=== PATIENT | female | born 1960 | race Caucasian/White ===

== ENCOUNTER → 2021-01-07 08:06 | Outpatient (BNVA) | payer BC, SELFPAY | PROVIDERS: Visit Provider Internal Medicine | DX: M54.9 Dorsalgia, unspecified (principal); M70.61 Trochanteric bursitis, right hip; M70.62 Trochanteric bursitis, left hip; M47.816 Spondylosis without myelopathy or radiculopathy, lumbar region; M46.1 Sacroiliitis, not elsewhere classified | CPT/HCPCS: 20610; 20611; J1040 ==

== ENCOUNTER 2021-03-09 06:45 | Outpatient (REF) | payer BC, SELFPAY ==
--- NOTE | ~2021-03-09 | FL_ITS ---
EXAMINATION: XR FLUOROSCOPY WITH IMAGES CLINICAL INFORMATION: Spondylosis without myelopathy or radiculopathy COMPARISON: None. TECHNIQUE: Fluoroscopy performed by Roberta Eli. Fluoroscopy time: 0.6 minutes DAP: 1.03 Gycm2 Images: 6 FINDINGS: There are 6 images revealing bilateral needles positioned posterior to L2-L3, L3-L4, L4-L5 facet joints. No lytic or sclerotic process seen. The paravertebral soft tissues are normal. FL/FL guidance in treatment room IMPRESSION: Fluoroscopy guidance was provided to Dr. Eli for pain management.
== END 2021-03-09 06:46 | disposition home or self-care (01) ==
LOC: HO.RADIR 06:45
PROVIDERS: Visit Provider Internal Medicine
DX: M45.9 Ankylosing spondylitis of unspecified sites in spine (principal); M47.816 Spondylosis without myelopathy or radiculopathy, lumbar region; M46.1 Sacroiliitis, not elsewhere classified; M70.62 Trochanteric bursitis, left hip; M70.61 Trochanteric bursitis, right hip
CPT/HCPCS: 64493; 64494; 64495; J1040; Q9967

== ENCOUNTER 2021-04-20 06:05 | Outpatient (REF) | payer BC, SELFPAY ==
--- NOTE | ~2021-04-20 | FL_ITS ---
EXAMINATION: XR FLUOROSCOPY WITH IMAGES CLINICAL INFORMATION: Sacroiliitis. Pain. COMPARISON: None TECHNIQUE: Fluoroscopy performed by Roberta Eli. Fluoroscopy time: 0.4 minutes DAP: 4.32 Gycm2 Images: 6 FINDINGS: There are 6 images obtained revealing needles overlying the SI joints. No contrast is visualized. The subsequent last 2 images reveal needles positioned lateral to the right and left greater trochanter. The soft tissues are normal. FL/FL guidance in treatment room IMPRESSION: [place] overlie the SI joint and there are needles adjacent to the right and left greater trochanter. No contrast seen.
== END 2021-04-20 06:06 | disposition home or self-care (01) ==
LOC: HO.RADIR 06:05
PROVIDERS: Visit Provider Internal Medicine
DX: M47.816 Spondylosis without myelopathy or radiculopathy, lumbar region (principal); M46.1 Sacroiliitis, not elsewhere classified; M70.61 Trochanteric bursitis, right hip; M70.62 Trochanteric bursitis, left hip
CPT/HCPCS: 20610; 27096; J1020; J1040

== ENCOUNTER → 2021-05-20 09:40 | Outpatient (BNVA) | payer BC, SELFPAY | PROVIDERS: Visit Provider Nurse Practitioner Family | DX: Z13.89 Encounter for screening for other disorder (principal) ==

== ENCOUNTER 2021-08-31 06:13 | Outpatient (REF) | payer BC, SELFPAY ==
--- NOTE | ~2021-08-31 | FL_ITS ---
EXAMINATION: XR FLUOROSCOPY WITH IMAGES CLINICAL INFORMATION: Bilateral SI joint injections. COMPARISON: None. TECHNIQUE: Fluoroscopy performed by Roberta Clifford. Fluoroscopy time: 0.6 minutes. Cumulative Dose: 15.3 mGy. DAP: 2.02 Gy-cm2. Images: 6. FINDINGS: There is at least 6 digital images of right and left SI joints with needle positioned within joint space. There are 2 images obtained of the right and left greater trochanter with needle positioning at the greater trochanter and contrast opacifying the soft tissues. FL/FL guidance in treatment room IMPRESSION: Fluoroscopy was provided to referrer for pain management.
== END 2021-08-31 06:14 | disposition home or self-care (01) ==
LOC: HO.RADIR 06:13
PROVIDERS: Visit Provider Internal Medicine
DX: M70.61 Trochanteric bursitis, right hip (principal); M70.62 Trochanteric bursitis, left hip; M46.1 Sacroiliitis, not elsewhere classified
CPT/HCPCS: 20610; 27096; J1040; J2795

== ENCOUNTER 2021-11-16 06:00 | Outpatient (REF) | payer BC, SELFPAY ==
--- NOTE | ~2021-11-16 | FL_ITS ---
EXAMINATION: XR FLUOROSCOPY WITH IMAGES CLINICAL INFORMATION: Bilateral sacroiliac joint injection COMPARISON: None. TECHNIQUE: Fluoroscopy performed by Dr. Mccullough . Fluoroscopy time: 0.2 minutes. Cumulative Dose: 7.2 mGy. DAP: 0.5 Gy-cm2. Images: 4. FINDINGS: Images demonstrate needle placement and contrast injection overlying the bilateral inferior sacroiliac joints. FL/FL guidance in treatment room IMPRESSION: Fluoroscopy guidance for pain management procedure.
--- NOTE | ~2021-11-16 | FL_ITS ---
EXAMINATION: XR FLUOROSCOPY WITH IMAGES CLINICAL INFORMATION: Trochanteric bursitis. COMPARISON: None. TECHNIQUE: Fluoroscopy performed by Dr. Kervin Narvaez. Fluoroscopy time: 0.2. Cumulative Dose: 1.6 mGy. DAP: 0.4 Gy-cm2. Images: 2. FINDINGS: Images demonstrate needle placement and contrast injection adjacent to the bilateral greater trochanters. FL/FL guidance in treatment room IMPRESSION: Fluoroscopy guidance for pain management procedure.
== END 2021-11-16 06:01 | disposition home or self-care (01) ==
LOC: CF 06:00
PROVIDERS: Visit Provider Internal Medicine
DX: M46.1 Sacroiliitis, not elsewhere classified (principal); M70.61 Trochanteric bursitis, right hip; M70.62 Trochanteric bursitis, left hip
CPT/HCPCS: 20610; 27096; J1020; J1040; J2795; Q9967

== ENCOUNTER 2022-02-01 06:03 | Outpatient (REF) | payer BC, SELFPAY ==
--- NOTE | ~2022-02-01 | FL_ITS ---
EXAMINATION: XR FLUOROSCOPY WITH IMAGES CLINICAL INFORMATION: Spondylosis without myelopathy or radiculopathy. COMPARISON: None. TECHNIQUE: Fluoroscopy Supervised By: Dr. Narvaez. Fluoroscopy Time: 0.4. DAP: 1.00 Gycm2. Images: 4. FINDINGS: There are 4 digital images revealing needle positioned bilaterally at L3-L4, L4-L5 and L5-S1 facet joints. Visualized vertebral heights is normal. There is loss of disc height at L3-L4 and L4-L5 disc levels with mild endplate spondylosis. FL/FL guidance in treatment room IMPRESSION: Fluoroscopy was provided to referring physician for pain management.
== END 2022-02-01 06:04 | disposition home or self-care (01) ==
LOC: CF 06:03
PROVIDERS: Visit Provider Internal Medicine
DX: M47.816 Spondylosis without myelopathy or radiculopathy, lumbar region (principal); M45.9 Ankylosing spondylitis of unspecified sites in spine
CPT/HCPCS: 64493; 64494; 64495; J1040; J1100; J2795; Q9965; Q9967

== ENCOUNTER → 2022-03-03 08:08 | Outpatient (BNVA) | payer BC, SELFPAY | PROVIDERS: PCP Internal Medicine; Visit Provider Internal Medicine | DX: Z13.89 Encounter for screening for other disorder (principal) ==

== ENCOUNTER 2023-01-05 09:38 | Outpatient (AMB) | payer BC, SELFPAY ==
--- NOTE | 2023-01-05 09:41 | MHC.OFFVIS ---
Intake Vital Signs 01/05/23 09:42 Height 5 ft 6 in Weight 162 lb BMI 26.1 BP 120/83 Blood Pressure Location Lt brachial Position Sitting Respiration 12 Pulse 77 Pulse Source Pulse Oximeter Pulse Oximetry (%) 99 Oxygen Delivery Method Room Air Intake Visit Reasons: F/U Injection Discussion Allergies No Known Allergies Allergy (Verified 01/05/23 09:43) Medication List - Last Reconciled 01/05/23 by Jacqueline Duffy LPN levothyroxine 75 mcg PO DAILY lidocaine 5% 1 patch topical DAILY meloxicam 15 mg PO DAILY upadacitinib ER (Rinvoq) 15 mg PO DAILY zolpidem mg PO HPI F/U Injection Discussion HPI Details 62-year-old female who presents today to the office for a follow-up discussion of corticosteroid injection. The patient reports left sided SIJ pain. She would like to have SI joint injections repeated. She also reports left shoulder pain. She denies any pain in her back after laying down. She is amenable to receive shoulder injection today in the office. Past Procedures: 02/01/22: Bilateral L3-L4, L4-L5, L5-S1 Intraarticular Facet Injection ? >50% relief for more than 2 month. 11/16/21: Bilateral Therapeutic SIJ/GTB Injection ? 80% relief for more than 2 months. 04/20/21: Bilateral SIJ and GTB Injection ? 50% relief on the right, 75% on the left for more than 2 months. [facility] Medical History (Updated 01/11/23 @ 15:11 by Kervin Narvaez MD) Sacroiliitis Lumbar spondylosis Trochanteric bursitis of both hips Ankylosing spondylitis Hypothyroidism Fusion of toes of right foot Surgical History (Updated 01/07/21 @ 11:53 by Luke Chaves) H/O repair of left rotator cuff Hx of fusion of cervical spine Hx of tonsillectomy Social History (Updated 01/07/21 @ 11:55 by Luke Chaves) Patient Tobacco Use Status: Never used Tobacco Review of Systems Const All systems reviewed & are unremarkable except as noted in HPI and below Physical Exam Vital Signs: Last Vital Signs Pulse 77 01/05/23 09:42 Resp 12 01/05/23 09:42 BP 120/83 01/05/23 09:42 Pulse Ox 99 01/05/23 09:42 Oxygen Delivery Method Room Air 01/05/23 09:42 BMI result Body Mass Index 26.1 General: Appears afebrile. Alert and oriented. Mood and affect appropriate. Follows and participates in conversation appropriately. Respiratory effort is unlabored. Able to transition from sit to stand unassisted. Ambulates with bilaterally normal heel strike and toe off. Office Procedures Joint Injection/Drain Joint Injection/Drain Details: Left subacromial bursa injection, ultrasound guided Primary Site: left shoulder Prep: site was prepped using aseptic technique and site was prepped using sterile technique Injected: 40 mg of, Kenalog, with 3 mL of, 0.25% bupivacaine and in the subcromial space (left) Approach Used: posterolateral Procedure: The patient tolerated the procedure well Coding Details: An ultrasound image of the injection was taken and stored in the permanent record. - Acromioclavicular with ultrasound guidance Procedure code (CPT) selection complete Results Reviewed Results Reviewed: No imaging is available for review. Assessment & Plan Assessment & Plan (1) Sacroiliitis: Code(s): M46.1 - Sacroiliitis, not elsewhere classified (2) Calcific tendinitis of both shoulders: Code(s): M75.31 - Calcific tendinitis of right shoulder; M75.32 - Calcific tendinitis of left shoulder Plan Patient is status post left subacromial bursa injection, ultrasound guided. Patient tolerated procedure well and was discharged home in stable condition with discharge instructions. All questions were answered. Regarding sacroiliac joint, she is interested in bilateral PRP injections to bilateral sacroiliac joints and potentially A2M injections to the sacroiliac ligaments. I informed her that I will make arrangements for both of these and get in touch with her once I have more clarity. Scribed for Dr. Narvaez by Herbie Martinez, medical investigator, on 01/05/2023. I, Dr. Narvaez, have personally reviewed and agree with the information entered by the scribe. Coding Level of Care Code Est Pt Level 3 (53127) Diagnoses Sacroiliitis M46.1 Calcific tendinitis of both shoulders M75.31; M75.32 CPT Codes Coding - Joint 6: - Acromioclavicular with ultrasound guidance ([id number])
[2023-01-05 09:42] VITALS: BP 120/83; PULSE 77; RESP 12; O2SAT 99; BMI 26.1
== END 2023-01-05 10:02 | disposition home or self-care (01) ==
PROVIDERS: PCP Internal Medicine; Visit Provider Internal Medicine
DX: M46.1 Sacroiliitis, not elsewhere classified (principal); M75.31 Calcific tendinitis of right shoulder; M75.32 Calcific tendinitis of left shoulder
CPT/HCPCS: 20606; 20611; 99213

== ENCOUNTER → 2023-01-05 09:38 | Outpatient (BNVA) | payer BC, SELFPAY | PROVIDERS: PCP Internal Medicine; Visit Provider Internal Medicine | DX: M75.32 Calcific tendinitis of left shoulder (principal); M75.31 Calcific tendinitis of right shoulder; M46.1 Sacroiliitis, not elsewhere classified | CPT/HCPCS: 20606; 20611; J0665; J3301 ==

== ENCOUNTER 2023-03-30 09:04 | Outpatient (AMB) | payer BC, SELFPAY ==
--- NOTE | 2023-03-30 09:41 | A.OFFVIS_ITS ---
Intake Vital Signs 03/30/23 09:45 Height 5 ft 6 in Weight 165 lb BMI 26.6 BP 115/76 Blood Pressure Location Lt brachial Position Sitting Pulse 67 Pulse Source Pulse Oximeter Pulse Oximetry (%) 99 Oxygen Delivery Method Room Air Intake Visit Reasons: Follow up/confirmed Intake Note: Pain today 06/14 Advertising Account Executive Required: No Accompanied by: Self / Same As Patient Allergies No Known Allergies Allergy (Verified 01/05/23 09:43) HPI Follow up/confirmed HPI Details 63-year-old female who presents today to the office for a follow-up. She is currently taking meloxicam. She is interested in trying PRP injections for both shoulder and hip pain. She is here to discuss risks and benefits of PRP/A2M versus continuing corticos teroid therapy. Past Procedures: 01/05/2023: Left subacromial bursa injec tion, ultrasound guided: 50% relief. 02/01/22: Bilateral L3-L4, L4-L5, L5-S1 Intraarticular Facet Injection ? >50% relief for more than 2 month. 11/16/21: Bilateral Therapeutic SIJ/GTB Injection ? 80% relief for more than 2 months. 04/20/21: Bilateral SIJ and GTB Injection ? 50% relief on the right, 75% on the left for more than 2 months. [facility] Medical History (Updated 01/11/23 @ 15:11 by Kervin Narvaez MD) Sacroiliitis Lumbar spondylosis Trochanteric bursitis of both hips Ankylosing spondylitis Hypothyroidism Fusion of toes of right foot Surgical History (Updated 01/07/21 @ 11:53 by Luke Chaves) H/O repair of left rotator cuff Hx of fusion of cervical spine Hx of tonsillectomy Social History (Updated 01/07/21 @ 11:55 by Luke Chaves) Patient Tobacco Use Status: Never used Tobacco Review of Systems Const All systems reviewed & are unremarkable except as noted in HPI and below Physical Exam Vital Signs: Last Vital Signs Pulse 67 03/30/23 09:45 BP 115/76 03/30/23 09:45 Pulse Ox 99 03/30/23 09:45 Oxygen Delivery Method Room Air 03/30/23 09:45 BMI result Body Mass Index 26.6 General: Appears afebrile. Alert and oriented. Mood and affect appropriate. Follows and participates in conversation appropriately. Respiratory effort is unlabored. Able to transition from sit to stand unassisted. Ambulates with bilaterally normal heel strike and toe off. Results Reviewed Results Reviewed: No imaging is available for review. Assessment & Plan Assessment & Plan (1) Sacroiliitis: Code(s): M46.1 - Sacroiliitis, not elsewhere classified (2) Lumbar spondylosis: Code(s): M47.816 - Spondylosis without myelopathy or radiculopathy, lumbar region Plan The patient was here to discuss details of her upcoming PRP injection. We will schedule her for bilateral sacroiliac PRP and facet A2M injections. Discussed the risks and benefits of the procedure with the patient in detail. All questions were answered. The patient is on board with the plan. I advised the patient to stop taking NSAIDs two weeks before and one week after the procedure. I can prescribe oxycodone or Vicodin for pain management during this. In the future we will consider PRP and A2M injections for her shoulder, hips and knee. Scribed for Dr. Narvaez by Herbie Martinez, director of medical staff services, on 03/30/2023. I, Dr. Narvaez, have personally reviewed and agree with the information entered by the scribe. Medications: New oxycodone Partial Fill upon patient request. 5 mg PO BID PRN 30 tabs 0RF pain Coding Level of Care Code Est Pt Level 4 (87854) Diagnoses Sacroiliitis M46.1 Lumbar spondylosis M47.816
[2023-03-30 09:45] VITALS: BP 115/76; PULSE 67; O2SAT 99; BMI 26.6
== END 2023-03-30 09:59 | disposition home or self-care (01) ==
PROVIDERS: PCP Internal Medicine; Visit Provider Internal Medicine
DX: M46.1 Sacroiliitis, not elsewhere classified (principal); M47.816 Spondylosis without myelopathy or radiculopathy, lumbar region
CPT/HCPCS: 99214

== ENCOUNTER → 2023-03-30 09:04 | Outpatient (BNVA) | payer BC, SELFPAY | PROVIDERS: PCP Internal Medicine; Visit Provider Internal Medicine ==

== ENCOUNTER 2023-04-12 06:16 | Outpatient (REF) | payer BC, SELFPAY ==
--- NOTE | ~2023-04-12 | FL_ITS ---
EXAMINATION: XR FLUOROSCOPY WITH IMAGES CLINICAL INFORMATION: Sacroiliitis. COMPARISON: None available. TECHNIQUE: Fluoroscopy Supervised By: Dr. Narvaez. Fluoroscopy Time: 0.8 min. Cumulative Dose: 14.2 mGy. DAP: 1.20 Gy-cm2. Images: 6. FINDINGS: Imaging demonstrates needles overlying the regions of the SI joints and lower lumbosacral spine. Please see Dr. Narvaez' report for full details. FL/FL guidance in treatment room IMPRESSION: Fluoroscopy and spot films provided during SI joint injection.
== END 2023-04-12 06:17 | disposition home or self-care (01) ==
LOC: CF 06:16
PROVIDERS: Visit Provider Internal Medicine
DX: Z13.89 Encounter for screening for other disorder (principal)

== ENCOUNTER 2023-04-12 09:45 | Outpatient (AMB) | payer SELFPAY ==
[2023-04-12 11:48] VITALS: BP 120/70; PULSE 76; RESP 16; O2SAT 100; BMI 26.6
--- NOTE | 2023-04-12 11:48 | A.OFFVIS_ITS ---
Intake Vital Signs 04/12/23 11:48 04/12/23 11:49 Height 5 ft 6 in Weight 165 lb BMI 26.6 BP 120/70 120/82 Blood Pressure Location Lt brachial Lt brachial Position Sitting Sitting Respiration 16 16 Pulse 76 86 Pulse Source Pulse Oximeter Pulse Oximeter Pulse Oximetry (%) 100 99 Oxygen Delivery Method Room Air Room Air Comment Pre-Op Post-Op Intake Visit Reasons: PRP injection Allergies No Known Allergies Allergy (Verified 01/05/23 09:43) HPI PRP injection HPI Details Patient presents for scheduled procedure. Denies any recent cough, c old, infection, fever or other significant changes in medical history since last office visit. [facility] Medical History (Updated 04/12/23 @ 11:33 by Kervin Narvaez MD) Sacroiliitis Lumbar spondylosis Trochanteric bursitis of both hips Ankylosing spondylitis Hypothyroidism Fusion of toes of right foot Surgical History (Updated 01/07/21 @ 11:53 by Luke Chaves) H/O repair of left rotator cuff Hx of fusion of cervical spine Hx of tonsillectomy Social History (Updated 01/07/21 @ 11:55 by Luke Chaves) Patient Tobacco Use Status: Never used Tobacco Physical Exam Vital Signs: Last Vital Signs Pulse 86 04/12/23 11:49 Resp 16 04/12/23 11:49 BP 120/82 04/12/23 11:49 Pulse Ox 99 04/12/23 11:49 Oxygen Delivery Method Room Air 04/12/23 11:49 BMI result Body Mass Index 26.6 Office Procedures Platelet Rich Plasma Injection PRP Joint Injection After informed written consent was obtained, pre-procedure oxygen saturation, heart rate, and blood pressure were recorded. An 18 gauge butterfly needle was used to obtain 50 mL of whole blood from the right antecubital fossa. This was t hen mixed with 9 mL anticoagulant citrate dextrose solution. The 60 mL mixture was counter balanced to within 1 g and spun at 3500 rpm for 10 minutes. Platelet poor plasma was then drawn using a bench top press model. 6 mL of slightly leukocyte rich PRP was isolated in a 10 cc syringe. The platelet poor plasma syringe was then connected to a protein concentrating filter. A vaclock syringe was also attached to the filter. The PPP was then flushed back and forth through the protein concentrating filter and 7 mL of A2M protein concentrate was isolated. The red cell concentrate and plasma derived water were discarded. Sacroiliac Joint Injection, bilateral The procedure, its benefits, and its risks were explained and written informed consent was obtained from the patient. Immediately prior to starting the procedure, a time-out safety check was conducted. The patient's identification, procedure name, procedure site, and procedure laterality were confirmed with the patient. ? Patient was placed prone on the fluoroscopy table and the lumbosacral area was prepped using ChloraPrep and draped with sterile drapein standard fashion. The C-arm was rotated in a contralateral oblique fashion until the medial border of the iliac crest no longer foreshadowed the posterior sacroiliac joint line. The skin and subcutaneous tissue was anesthetized using 1 mL of 0.75% plain lidocaine with 1.5-inch 25-gauge needle in the middle region of the joint line.? A 3.5-inch 22-gauge spinal needle with small bend on the tip was slowly advanced towards the joint line, coaxial to the x-ray beam. Once bony content was obtained, the needle was easily slid into the intra-articular space.? Intra- articular needle position was confirmed using lateral fluoroscopy.? A total volume of 3 mL PRP as isolated above was injected intra-articularly. The stylet was reinserted and needle was removed. The same procedure was repeated on the contralateral side. Lumbar Intra-articular Facet Injections, bilateral, L3/L4, L4/L5, L5/S1 With the patient in the prone position, the skin overlying the target facet joints was anesthetized with 0.5% lidocaine. A 22 gauge 3.5 inch needle with a small bend on the tip was advanced towards the target facet joint under fluoroscopic guidance until bony contact. The needle was then maneuvered and rotated until it slid into the joint slightly. No paresthesias were elicited with needle placement and aspiration was negative for blood and CSF. Next, 1 mL of A2M protein concentrate was injected (1 cc total per level). The identical procedure was performed at the remaining levels. The skin was cleansed and a sterile bandage was applied. Following the procedure the patient's vital signs were stable. The patient tolerated the procedure well and no complications were encountered. Following the procedure the patient's vital signs were stable. The patient was discharged home in good condition with post-procedural instructions. Time Out: Immediately prior to the procedure, the following was verbally confirmed that there is a signed consent form and that the correct patient, planned procedure, site and side are consistent with documentation and that necessary equipment and/or blood products are available prior to the start of the case. Complications: none EBL: 40 cc XCELL Platelet Plasma - 0232T 60 mL All charges added?: Procedure code (CPT) selection complete Assessment & Plan Assessment & Plan (1) Sacroiliitis: Code(s): M46.1 - Sacroiliitis, not elsewhere classified (2) Lumbar spondylosis: Code(s): M47.816 - Spondylosis without myelopathy or radiculopathy, lumbar region Plan Patient is status post bilateral intra-articular PRP injection to the SI joints. We also performed niranjan/intra-articular A2M concentrate injections to the bilateral lower lumbar facets. Patient tolerated procedure well and was discharged home in stable condition with discharge instructions. All questions were answered. She reported recent worsening in her right lower extremity radicular symptoms that have been severe and frequently flaring up during the last month. I recommended undergoing a lumbar spine MRI to rule out nerve root compression. Follow-up in clinic after the MRI exam. Orders: Orders MR lumbar spine wo con Today M54.16 - Radiculopathy, lumbar region Kervin Narvaez MD FL guidance in treatment room Today M46.1 - Sacroiliitis, not elsewhere classified, M47.816 - Spondylosis without myelopathy or radiculopathy, lumbar region Roberta Eli, CHIEF ENVIRONMENTAL COMMITMENT OFFICER AMB Platelet Rich Plasma (PRP) Injection Today M46.1 - Sacroiliitis, not elsewhere classified, M47.816 - Spondylosis without myelopathy or radiculopathy, lumbar region Kervin Narvaez MD Coding Level of Care Code Procedure Only Diagnoses Sacroiliitis M46.1 Lumbar spondylosis M47.816 CPT Codes XCELL Kit 60mL ([id number]) XCELL Kit 120mL ([id number])
[2023-04-12 11:49] VITALS: BP 120/82; PULSE 86; RESP 16; O2SAT 99
== END 2023-04-12 11:37 | disposition home or self-care (01) ==
LOC: HO.PMCPRC 09:46
PROVIDERS: PCP Internal Medicine; Visit Provider Internal Medicine
DX: M46.1 Sacroiliitis, not elsewhere classified (principal); M47.816 Spondylosis without myelopathy or radiculopathy, lumbar region
CPT/HCPCS: 0232T

== ENCOUNTER 2023-04-27 08:42 | Outpatient (AMB) | payer BC, SELFPAY ==
[2023-04-27 08:48] VITALS: BP 133/81; PULSE 81; RESP 12; O2SAT 98; BMI 26.6
--- NOTE | 2023-04-27 08:48 | A.OFFVIS_ITS ---
Intake Vital Signs 04/27/23 08:48 Height 5 ft 6 in Weight 165 lb BMI 26.6 BP 133/81 Blood Pressure Location Lt brachial Position Sitting Respiration 12 Pulse 81 Pulse Source Pulse Oximeter Pulse Oximetry (%) 98 Oxygen Delivery Method Room Air Intake Visit Reasons: s/p PRP Allergies No Known Allergies Allergy (Verified 04/27/23 08:48) Medication List - Last Reconciled 04/27/23 by Jacqueline Duffy LPN levothyroxine 75 mcg PO DAILY lidocaine 5% 1 patch topical DAILY meloxicam 15 mg PO DAILY upadacitinib ER (Rinvoq) 15 mg PO DAILY zolpidem mg PO HPI s/p PRP HPI Details 63-year-old female who presents today to the office for a status post PRP to SIJ and A2M to lumbar facets injection. The patient reports significant relief following the injections. The patient reports excellent relief following the facet injection procedure for her axial low back pain. She reports having a temporary worsening of pain in the back following the needling of the right SIJ which got better in a couple of days. She was unable to stand after the procedure and walk into the parking lot. She had severe pain when driving the car back to her home. Improved after 2 days. She has a history of inflammatory arthritis. She will follow up with her operations staff specialist security on 04/30/23. She was not taking Rinvoq for two weeks as she was out of prescription and started again yesterday. ?She is interested in repeating similar injections to her shoulders and trochanteric bursa. Past procedures: 04/12/23: A2M lumbar facets: >75% relief . 04/12/23: Sacroiliac Joint Injection, bi lateral, PRP: >75% relief. 04/12/23: Lumbar Intra-articular Facet I njections, bilateral, L3/L4, L4/L5, L5/S1: % relief. 01/05/2023: Left subacromial bursa injec tion, ultrasound guided: 50% relief. 02/01/22: Bilateral L3-L4, L4-L5, L5-S1 Intraarticular Facet Injection ? >50% relief for more than 2 month. 11/16/21: Bilateral Therapeutic SIJ/GTB Injection ? 80% relief for more than 2 months. 04/20/21: Bilateral SIJ and GTB Injection ? 50% relief on the right, 75% on the left for more than 2 months. [facility] Medical History (Updated 04/12/23 @ 11:33 by Kervin Narvaez MD) Sacroiliitis Lumbar spondylosis Trochanteric bursitis of both hips Ankylosing spondylitis Hypothyroidism Fusion of toes of right foot Surgical History (Updated 01/07/21 @ 11:53 by Luke Chaves) H/O repair of left rotator cuff Hx of fusion of cervical spine Hx of tonsillectomy Social History (Updated 01/07/21 @ 11:55 by Luke Chaves) Patient Tobacco Use Status: Never used Tobacco Review of Systems Const All systems reviewed & are unremarkable except as noted in HPI and below Physical Exam Vital Signs: Last Vital Signs Pulse 81 04/27/23 08:48 Resp 12 04/27/23 08:48 BP 133/81 04/27/23 08:48 Pulse Ox 98 04/27/23 08:48 Oxygen Delivery Method Room Air 04/27/23 08:48 BMI result Body Mass Index 26.6 General: Appears afebrile. Alert and oriented. Mood and affect appropriate. Follows and participates in conversation appropriately. Respiratory effort is unlabored. Able to transition from sit to stand unassisted. Ambulates with bilaterally normal heel strike and toe off. Results Reviewed Results Reviewed: No imaging is available for review. Assessment & Plan Assessment & Plan (1) Trochanteric bursitis of both hips: Code(s): M70.61 - Trochanteric bursitis, right hip; M70.62 - Trochanteric bursitis, left hip (2) Calcific tendinitis of both shoulders: Code(s): M75.31 - Calcific tendinitis of right shoulder; M75.32 - Calcific tendinitis of left shoulder Plan We will schedule her for bilateral PRP/A2M injection for shoulders, hips and knee in May 2023. Discussed the risks and benefits of the procedure with the patient in detail. All questions were answered. The patient is on board with the plan. She will hold her NSAIDs for two weeks and we will check for the rheumatology if she can hold the Rinvoq. Justification for interventional therapy: ? Patient with average pain > 6/10 ? Patient has exhausted conservative therapy ? Patient unable to tolerate physical therapy due to pain . Patient has a good understanding of their pain condition and has appropriate mental and social support Scribed for Dr. Narvaez by Herbie Martinez, biomedical service engineer, on 04/27/2023. I, Dr. Narvaez, have personally reviewed and agree with the information entered by the scribe. Coding Level of Care Code Est Pt Level 3 (52785) Diagnoses Trochanteric bursitis of both hips M70.61; M70.62 Calcific tendinitis of both shoulders M75.31; M75.32
== END 2023-04-27 09:16 | disposition home or self-care (01) ==
PROVIDERS: PCP Internal Medicine; Visit Provider Internal Medicine
DX: M70.61 Trochanteric bursitis, right hip (principal); M70.62 Trochanteric bursitis, left hip; M75.31 Calcific tendinitis of right shoulder; M75.32 Calcific tendinitis of left shoulder
CPT/HCPCS: 99213

== ENCOUNTER 2023-05-17 06:16 | Outpatient (REF) | payer BC, SELFPAY | END 2023-05-17 06:17 | disposition home or self-care (01) | LOC: CF 06:16 | PROVIDERS: Visit Provider Internal Medicine | DX: Z13.89 Encounter for screening for other disorder (principal) ==

== ENCOUNTER 2023-05-17 07:44 | Outpatient (AMB) | payer SELFPAY ==
[2023-05-17 07:59] VITALS: BP 116/70; PULSE 71; RESP 18; O2SAT 100; BMI 26.6
--- NOTE | 2023-05-17 07:59 | A.OFFVIS_ITS ---
Vital Signs 05/17/23 07:59 05/17/23 09:33 Height 5 ft 6 in Weight 165 lb BMI 26.6 BP 116/70 118/80 Blood Pressure Location Lt brachial Lt brachial Position Sitting Sitting Respiration 18 16 Pulse 71 82 Pulse Source Pulse Oximeter Pulse Oximeter Pulse Oximetry (%) 100 99 Oxygen Delivery Method Room Air Room Air Comment Pre-Op Post-Op Intake Visit Reasons: PRP/A2M elzbieta shoulders/hips/knees Allergies No Known Allergies Allergy (Verified 04/27/23 08:48) HPI HPI PRP/A2M elzbieta shoulders/hips/knees: Details: Patient presents for scheduled procedure. Denies any recent cough, cold, infection, fever or other significant changes in medical history since last office visit. [facility]LY [facility] Medical History (Updated 04/12/23 @ 11:33 by Kervin Narvaez MD) Sacroiliitis Lumbar spondylosis Trochanteric bursitis of both hips Ankylosing spondylitis Hypothyroidism Fusion of toes of right foot Surgical History (Updated 01/07/21 @ 11:53 by Luke Chaves) H/O repair of left rotator cuff Hx of fusion of cervical spine Hx of tonsillectomy Social History (Updated 01/07/21 @ 11:55 by Luke Chaves) Patient Tobacco Use Status: Never used Tobacco Physical Exam Vital Signs: Last Vital Signs Pulse 82 05/17/23 09:33 Resp 16 05/17/23 09:33 BP 118/80 05/17/23 09:33 Pulse Ox 99 05/17/23 09:33 Oxygen Delivery Method Room Air 05/17/23 09:33 BMI result Body Mass Index 26.6 Office Procedures Platelet Rich Plasma Injection PRP Joint Injection Platelet Rich Plasma Injection After informed written consent was obtained, pre-procedure oxygen saturation, heart rate, and blood pressure were recorded. An 18 gauge butterfly needle was used to obtain 50 mL of whole blood from the right antecubital fossa. This was then mixed with 9 mL anticoagulant citrate dextrose solution. The 60 mL mixture was counter balanced to within 1 g and spun at 3500 rpm for 10 minutes. Platelet poor plasma was then drawn using a bench top press model. 6 mL of slightly leukocyte rich PRP was isolated in a 10 cc syringe. The platelet poor plasma syringe was then connected to a protein concentrating filter. A vaclock syringe was also attached to the filter. The PPP was then flushed back and forth through the protein concentrating filter and 7 mL of A2M protein concentrate was isolated. The red cell concentrate and plasma derived water were discarded. Greater Trochanteric Bursa Injection, Bilateral After informed written consent was obtained, the patient was placed in the lateral position. Pre-procedure oxygen saturation, heart rate, and blood pressure were recorded. The skin was prepped with Chloroprep, and draped in a sterile fashion. With the use of ultrasound the greater trochanter was pura ntified. A 21-gauge 80 mm needle was then advanced toward the trochanteric bursa under ultrasound guidance. Once in position, and after negative aspiration, 3 mL of platelet poor, A2M/protein rich plasma was injected. There was no evidence of paresthesias throughout needle placement. The stylet was replaced and then the needle was withdrawn. The patient tolerated the procedure well and there was no evidence of procedural complications. Rotator Cuff Tendon Injection, Bilateral The patient was placed in the sitting position and ultrasound guidance was utilized to visualize the rotator cuff tendons including the supraspinatus and infraspinatus tendons. Intratendinous calcifications were also seen. The skin was prepped with ChloraPrep and draped in the sterile fashion. Under ultrasound guidance, a 21 gauge 80 mm needle was advanced towards the supraspinatus and subscapularis tendons and the tendons were infiltrated with 3 mL of PRP on each side with both subtendinous and intratendinous spread. There was no evidence of paresthesias throughout the needle placement. The needle was withdrawn and the site was cleaned and dressed. The patient tolerated the procedure well without any evidence of complications. The patient was observed in the procedure room for 20 minutes, vitals were stable, and discharged in stable condition. XCELL Platelet Plasma - [id number] 60 mL w/ Filter All charges added?: Procedure code (CPT) selection complete Joint Injection/Drain Coding Procedure code (CPT) selection complete Assessment & Plan Assessment & Plan (1) Trochanteric bursitis of both hips: Code(s): M70.61 - Trochanteric bursitis, right hip; M70.62 - Trochanteric bursitis, left hip Category: Medical (2) Calcific tendinitis of both shoulders: Code(s): M75.31 - Calcific tendinitis of right shoulder; M75.32 - Calcific tendinitis of left shoulder Category: Medical Plan Patient is status post bilateral rotator cuff PRP and GTB A2M injections. Patient tolerated procedure well and was discharged home in stable condition wit h discharge instructions. All questions were answered. We will follow-up via telephone or in clinic to assess response to therapy. A follow-up appointment was made during today's visit. Orders: Orders US guide needle placement 05/17/23 M75.31 - Calcific tendinitis of right shoulder, M75.32 - Calcific tendinitis of left shoulder
[2023-05-17 09:33] VITALS: BP 118/80; PULSE 82; RESP 16; O2SAT 99
== END 2023-05-17 09:34 | disposition home or self-care (01) ==
LOC: HO.PMCPRC 07:44
PROVIDERS: PCP Hospitalist; Visit Provider Internal Medicine
DX: M70.61 Trochanteric bursitis, right hip (principal); M70.62 Trochanteric bursitis, left hip; M75.31 Calcific tendinitis of right shoulder; M75.32 Calcific tendinitis of left shoulder
CPT/HCPCS: 0232T

== ENCOUNTER 2023-05-25 08:45 | Outpatient (REF) | payer BC, SELFPAY ==
--- NOTE | ~2023-05-25 | MR_ITS ---
EXAMINATION: MR LUMBAR SPINE WITHOUT CONTRAST CLINICAL INFORMATION: Radiculopathy COMPARISON: None TECHNIQUE: MRI of the lumbar spine was obtained using routine sequences without contrast. FINDINGS: S-shaped lumbar curvature with dextro curvature of the upper lumbar spine and levocurvature of the mid lumbar spine. Straightening of the normal lumbar lordosis. Slight grade 1 retrolisthesis at L2-L3 and L3-L4. There is mild left eccentric chronic height loss and lateral wedging of the L1 greater than L2 vertebral bodies. No suspicious osseous lesion. Diffuse disc desiccation with disc height loss most pronounced and severe on the left at L1-L2 and moderate to severe L2-L3 through L4-L5 disc height loss. Prominent type I Modic endplate changes eccentric to the left at L1-L2 and type II Modic endplate changes, most pronounced at L3-L4 and L4-L5. Multilevel endplate Schmorl's nodes. Multilevel anterior osteophytic spurring is seen. Level by level detail as follows: L1-L2: Disc osteophyte complex eccentric to the left and mild bilateral facet arthrosis. No spinal canal stenosis. Left subarticular zone narrowing with abutment of the traversing left L2 nerve root in the subarticular zone. Moderate left without right neural foraminal stenosis. L2-L3: Annular disc bulge and moderate bilateral facet arthrosis with ligamentum flavum thickening. Prominence of the dorsal epidural fat. Mild spinal canal and left subarticular zone narrowing abutting the traversing left L3 nerve root. Mild left without right neural foraminal stenosis. L3-L4: Disc osteophyte complex eccentric to the right with moderate bilateral facet arthrosis. No spinal canal stenosis, noting right subarticular zone narrowing. Mild bilateral neural foraminal stenosis. L4-L5: Right lateral disc osteophyte, moderate right and mild left facet arthrosis. No spinal canal stenosis. Moderate right neural foraminal stenosis with encroachment upon the exiting right L4 nerve root and patent left neural foramen. L5-S1: Shallow annular disc bulge and moderate bilateral facet arthrosis with trace right facet joint effusion. No spinal canal or neural foraminal stenosis. The conus medullaris terminates at the level of L1-L2. The distal spinal cord is normal in appearance. No epidural fluid collection, hematoma, or mass. No significant abnormalities of the paraspinal musculature. 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 0.5 cm right adnexal cystic lesion. Findings are overwhelmingly likely to represent a benign functional cyst and no follow-up imaging recommended. The abdominal aorta is of normal contour and caliber. MR/MR lumbar spine wo con IMPRESSION: 1. S-shaped lumbar curvature with multilevel lumbar spondylosis as described above. No high-grade spinal canal stenosis. Moderate left L1-L2 and right L4-L5 neural foraminal stenosis. 2. 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 Findings would be better diagnostically assessed on MRI of the bilateral hips.
== END 2023-05-25 08:46 | disposition home or self-care (01) ==
LOC: HO.MRI 08:45
PROVIDERS: PCP Internal Medicine; Visit Provider Internal Medicine
DX: M54.16 Radiculopathy, lumbar region (principal)
CPT/HCPCS: 72148

== ENCOUNTER 2023-06-29 07:59 | Outpatient (AMB) | payer BC, SELFPAY ==
--- NOTE | 2023-06-29 08:13 | MHC.OFFVIS ---
Vital Signs 06/29/23 08:14 Height 5 ft 6 in Weight 154 lb BMI 24.9 BP 118/79 Blood Pressure Location Lt brachial Position Sitting Respiration 14 Pulse 67 Pulse Source Pulse Oximeter Pulse Oximetry (%) 100 Oxygen Delivery Method Room Air Intake Visit Reasons: s/p PRP/A2M Allergies No Known Allergies Allergy (Verified 06/29/23 08:15) Medication List - Last Reconciled 06/29/23 by Jacqueline Duffy LPN levothyroxine 75 mcg PO DAILY lidocaine 5% 1 patch topical DAILY meloxicam 15 mg PO DAILY upadacitinib ER (Rinvoq) 15 mg PO DAILY zolpidem mg PO HPI HPI s/p PRP/A2M: Details: 63-year-old female who presents today to the office status post PRP injection. Her SIJ are doing much better following the PRP injection. Her shoulders also have also improved, but continues to have some discomfort with range of motion. She continues to have radicular symptoms in the L4 distribution on the right. She has not previously had any epidural injections with us. She is sometimes unable to get out of the bed due to the radicular pain. Her surgeon ordered a CT scan and DEXA scan. She had a MRI scan of the lumbar spine. She is able to do her ADLs. She is interested in discussing different treatment options today. Past procedures? 05/17/23: PRP Joint Injection/Platelet Rich Plasma Injection: >50% relief. 05/17/23: PRP Greater Trochanteric Bursa Injection, Bilateral: >75% relief. 05/17/23: Rotator Cuff Tendon Injection, Bilateral: 50% relief. 04/12/23: A2M lumbar facets: >75% relief. 04/12/23: Sacroiliac Joint Injection, bilateral, PRP: >75% relief. 04/12/23: Lumbar Intra-articular Facet Injections, bilateral, L3/L4, L4/L5, L5/S1: 75% relief. 01/05/2023: Left subacromial bursa injection, ultrasound guided: 50% relief. 02/01/22: Bilateral L3-L4, L4-L5, L5-S1 Intraarticular Facet Injection ? >50% relief for more than 2 month. 11/16/21: Bilateral Therapeutic SIJ/GTB Injection ? 80% relief for more than 2 months. 04/20/21: Bilateral SIJ and GTB Injection ? 50% relief on the right, 75% on the left for more than 2 months. REPLACED BY [facility] Medical History (Updated 07/03/23 @ 10:52 by Kervin Narvaez MD) Sacroiliitis Lumbar spondylosis Trochanteric bursitis of both hips Ankylosing spondylitis Hypothyroidism Fusion of toes of right foot Surgical History (Updated 01/07/21 @ 11:53 by Luke Chaves) H/O repair of left rotator cuff Hx of fusion of cervical spine Hx of tonsillectomy Social History (Updated 01/07/21 @ 11:55 by Luke Chaves) Patient Tobacco Use Status: Never used Tobacco Review of Systems Const All systems reviewed & are unremarkable except as noted in HPI and below Physical Exam Vital Signs: Last Vital Signs Pulse 67 06/29/23 08:14 Resp 14 06/29/23 08:14 BP 118/79 06/29/23 08:14 Pulse Ox 100 06/29/23 08:14 Oxygen Delivery Method Room Air 06/29/23 08:14 BMI result Body Mass Index 24.9 General: Appears afebrile. Alert and oriented. Mood and affect appropriate. Follows and participates in conversation appropriately. Respiratory effort is unlabored. Able to transition from sit to stand unassisted. Ambulates with bilaterally normal heel strike and toe off. Office Procedures Nerve Block Details: By mistake Procedure code (CPT) selection complete (By mistake) Results Reviewed Results Reviewed: 05/25/23: MR LUMBAR SPINE WITHOUT CONTRAST FINDINGS: S-shaped lumbar curvature with dextro curvature of the upper lumbar spine and levocurvature of the mid lumbar spine. Straightening of the normal lumbar lordosis. Slight grade 1 retrolisthesis at L2-L3 and L3-L4. There is mild left eccentric chronic height loss and lateral wedging of the L1 greater than L2 vertebral bodies. No suspicious osseous lesion. Diffuse disc desiccation with disc height loss most pronounced and severe on the left at L1-L2 and moderate to severe L2-L3 through L4-L5 disc height loss. Prominent type I Modic endplate changes eccentric to the left at L1-L2 and type II Modic endplate changes, most pronounced at L3-L4 and L4-L5. Multilevel endplate Schmorl's nodes. Multilevel anterior osteophytic spurring is seen. Level by level detail as follows: L1-L2: Disc osteophyte complex eccentric to the left and mild bilateral facet arthrosis. No spinal canal stenosis. Left subarticular zone narrowing with abutment of the traversing left L2 nerve root in the subarticular zone. Moderate left without right neural foraminal stenosis. L2-L3: Annular disc bulge and moderate bilateral facet arthrosis with ligamentum flavum thickening. Prominence of the dorsal epidural fat. Mild spinal canal and left subarticular zone narrowing abutting the traversing left L3 nerve root. Mild left without right neural foraminal stenosis. L3-L4: Disc osteophyte complex eccentric to the right with moderate bilateral facet arthrosis. No spinal canal stenosis, noting right subarticular zone narrowing. Mild bilateral neural foraminal stenosis. L4-L5: Right lateral disc osteophyte, moderate right and mild left facet arthrosis. No spinal canal stenosis. Moderate right neural foraminal stenosis with encroachment upon the exiting right L4 nerve root and patent left neural foramen. L5-S1: Shallow annular disc bulge and moderate bilateral facet arthrosis with trace right facet joint effusion. No spinal canal or neural foraminal stenosis. The conus medullaris terminates at the level of L1-L2. The distal spinal cord is normal in appearance. No epidural fluid collection, hematoma, or mass. No significant abnormalities of the paraspinal musculature. 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 0.5 cm right adnexal cystic lesion. Findings are overwhelmingly likely to represent a benign functional cyst and no follow-up imaging recommended. The abdominal aorta is of normal contour and caliber. IMPRESSION: 1. S-shaped lumbar curvature with multilevel lumbar spondylosis as described above. No high-grade spinal canal stenosis. Moderate left L1-L2 and right L4-L5 neural foraminal stenosis. 2. 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 Findings would be better diagnostically assessed on MRI of the bilateral hips. Assessment & Plan Assessment & Plan (1) Lumbar radiculitis: Code(s): M54.16 - Radiculopathy, lumbar region Category: Medical (2) Calcific tendinitis of both shoulders: Code(s): M75.31 - Calcific tendinitis of right shoulder; M75.32 - Calcific tendinitis of left shoulder Category: Medical (3) Sacroiliitis: Code(s): M46.1 - Sacroiliitis, not elsewhere classified Category: Medical (4) Lumbar spondylosis: Code(s): M47.816 - Spondylosis without myelopathy or radiculopathy, lumbar region Category: Medical (5) Intractable back pain: Code(s): M54.9 - Dorsalgia, unspecified Category: Medical Plan We discussed peripheral nerve stimulation of the lumbar medial branches for her facet-mediated pain, which is associated with multifidus atrophy. We also discussed the intracept procedure for vertebral endplate degeneration. She is also awaiting a bone scan to further assess the edema in her L1-L2 vertebral bodies and rule out a compression fracture. She may benefit from a kyphoplasty if there is a compression fracture diagnosed at that level. There are some L4 right radicular symptom as well; we may consider a diagnostic lidocaine selective nerve root block in the future. Scribed for Dr. Narvaez by Herbie Martinez medical associate, on 06/29/2023. I, Dr. Narvaez, have personally reviewed and agree with the information entered by the scribe. Coding Level of Care Code Est Pt Level 4 (52521) Diagnoses Lumbar radiculitis M54.16 Calcific tendinitis of both shoulders M75.31; M75.32 Sacroiliitis M46.1 Lumbar spondylosis M47.816 Intractable back pain M54.9
[2023-06-29 08:14] VITALS: BP 118/79; PULSE 67; RESP 14; O2SAT 100; BMI 24.9
== END 2023-06-29 08:56 | disposition home or self-care (01) ==
PROVIDERS: PCP Internal Medicine; Visit Provider Internal Medicine
DX: M54.16 Radiculopathy, lumbar region (principal); M75.31 Calcific tendinitis of right shoulder; M75.32 Calcific tendinitis of left shoulder; M46.1 Sacroiliitis, not elsewhere classified; M47.816 Spondylosis without myelopathy or radiculopathy, lumbar region; M54.9 Dorsalgia, unspecified
CPT/HCPCS: 99214

== ENCOUNTER → 2023-06-29 07:59 | Outpatient (BNVA) | payer BC, SELFPAY | PROVIDERS: PCP Internal Medicine; Visit Provider Internal Medicine ==

== ENCOUNTER 2023-07-16 08:41 | Outpatient (REF) | payer BC, SELFPAY ==
--- NOTE | ~2023-07-16 | MR_ITS ---
EXAMINATION: MR HIP WITHOUT CONTRAST, RIGHT CLINICAL INFORMATION: Idiopathic aseptic necrosis femur. COMPARISON: None available. TECHNIQUE: MRI of the right hip was obtained using routine sequences on a high-field strength magnet. FINDINGS: BONE/JOINTS: Serpiginous bright T2/low T1 signal abnormality in the subchondral femoral head measuring 3 x 3.4 cm (transverse, AP) in the femoral head. This is compatible with a focus of avascular necrosis. No evidence of subchondral collapse. Mild patchy edema in the femoral head/neck. No evidence of significant hip arthropathy. No aggressive marrow-replacing lesion. LABRUM: T2 bright signal in the undersurface of the anterosuperior and posterosuperior labrum, suspicious for tear. MUSCLES/TENDONS: Mild distal gluteus minimus and medius tendinosis. Mild common hamstring tendinosis/deep surface partial tear. Iliopsoas, rectus femoris tendons intact. No muscle tear. JOINT FLUID/BURSA: Small right hip joint fluid. Mild soft tissue edema in the region of the greater trochanter. No significant iliopsoas bursitis. INTRAPELVIS STRUCTURES: No groin lymphadenopathy. Urinary bladder appears unremarkable. On the coronal T1 sequence of the pelvis is a curvilinear low T1 signal focus in the left femoral head compatible with a focus of avascular necrosis, incompletely evaluated. No diastasis of the SI joints or symphysis pubis. Lumbar spondylosis present, partially evaluated. MR/MR hip RT wo con IMPRESSION: 1. Right femoral head avascular necrosis measuring 3 x 3.4 cm. No evidence of subchondral collapse. Mild patchy edema in the femoral head/neck. 2. Findings suspicious for anterosuperior and posterosuperior labral tear. 3. Left femoral head findings consistent with focus of avascular necrosis, partially evaluated. 4. Lumbar spondylosis, incompletely evaluated.
== END 2023-07-16 08:42 | disposition home or self-care (01) ==
LOC: HO.MRI 08:41
PROVIDERS: PCP Hospitalist; Visit Provider Internal Medicine
DX: M87.051 Idiopathic aseptic necrosis of right femur (principal)
CPT/HCPCS: 73721

== ENCOUNTER 2023-11-23 09:14 | Outpatient (AMB) | payer BC, SELFPAY ==
[2023-11-23 09:17] VITALS: BP 164/78; PULSE 61; RESP 14; BMI 25.2
--- NOTE | 2023-11-23 09:17 | A.OFFVIS_ITS ---
Vital Signs 11/23/23 09:17 Height 5 ft 6 in Weight 156 lb BMI 25.2 BP 164/78 H Blood Pressure Location Rt brachial Position Sitting Respiration 14 Pulse 61 Pulse Source Pulse Oximeter Intake Visit Reasons: US guided TPI Allergies No Known Allergies Allergy (Verified 11/23/23 09:28) Medication List - Last Reconciled 11/23/23 by Jacqueline Duffy LPN levothyroxine 75 mcg PO DAILY lidocaine 5% 1 patch topical DAILY meloxicam 15 mg PO DAILY upadacitinib ER (Rinvoq) 15 mg PO DAILY zolpidem mg PO HPI HPI US guided TPI: Details: 63-year-old female who presents today to the office for an US guided TPI. She inquired about neuromodulation interventions including medial branch blocks and facet interventions. Denies any recent cough, cold, infection, fever or other significant changes in medical history since last office visit. Past procedures? 05/17/23: PRP Joint Injection/Platelet Rich Plasma Injection: >50% relief. 05/17/23: Greater Trochanteric Bursa Injection, Bilateral: >75% relief. 05/17/23: Rotator Cuff Tendon Injection, Bilateral: 50% relief. 04/12/23: A2M lumbar facets: >75% relief. 04/12/23: Sacroiliac Joint Injection, bilateral, PRP: >75% relief. 04/12/23: Lumbar Intra-articular Facet Injections, bilateral, L3/L4, L4/L5, L5/S1: 75% relief. 01/05/2023: Left subacromial bursa injection, ultrasound guided: 50% relief. 02/01/22: Bilateral L3-L4, L4-L5, L5-S1 Intraarticular Facet Injection ? >50% relief for more than 2 month. 11/16/21: Bilateral Therapeutic SIJ/GTB Injection ? 80% relief for more than 2 months. 04/20/21: Bilateral SIJ and GTB Injection ? 50% relief on the right, 75% on the left for more than 2 months. [facility] Medical History (Updated 12/18/23 @ 14:10 by Kervin Narvaez MD) Sacroiliitis Lumbar spondylosis Trochanteric bursitis of both hips Ankylosing spondylitis Hypothyroidism Fusion of toes of right foot Surgical History (Updated 01/07/21 @ 11:53 by Luke Chaves) H/O repair of left rotator cuff Hx of fusion of cervical spine Hx of tonsillectomy Social History (Updated 01/07/21 @ 11:55 by Luke Chaves) Patient Tobacco Use Status: Never used Tobacco Review of Systems Const All systems reviewed & are unremarkable except as noted in HPI and below Physical Exam Vital Signs: Last Vital Signs Pulse 61 11/23/23 09:17 Resp 14 11/23/23 09:17 BP 164/78 H 11/23/23 09:17 BMI result Body Mass Index 25.2 General: Appears afebrile. Alert and oriented. Mood and affect appropriate. Follows and participates in conversation appropriately. Respiratory effort is unlabored. Able to transition from sit to stand unassisted. Ambulates with bilaterally normal heel strike and toe off. Office Procedures Injection Trigger Point Multi Pre-procedure diagnosis: Myofascial pain Post-procedure diagnosis: Myofascial pain Site and number of trigger points: Rhomboid Lumbar paraspinal muscles Multifidus, lat dorsi Solution: Total volume administered (8mL ropivacaine 0.25% and 40 mL of kenalog). The procedure, its benefits, and its risks were explained to the patient and all questions were answered. A pulse oximeter monitor was attached and the patient was monitored throughout the procedure. Prior to the start of the procedure, a ?time out? was performed to confirm correct patient, procedure, and laterality. Trigger points were identified by ultrasound guidance. The skin was cleaned with Chloraprep. A 80mm 21 guage echostim needle was used and advanced under ultrasound guidance to the identified trigger areas. Approximately 0.5 ml to 1 ml of injectate was delivered to the trigger point. This process was repeated at each trigger point site. The patient tolerated the procedure well. Post-procedure, breath sounds were equal at both sides of the chest. The patient tolerated the procedure well, without complication. The patient denied any numbness, paresthesias, or weakness. Post-procedure vitals were recorded as part of the nursing discharge note in electronic medical record. Following a period of observation, the patient was discharged in stable condition with written discharge instructions. An ultrasound image of the injection was taken and stored in the permanent record. Trigger Point Multiple: 11791- Trigger point injection =/>3 Results Reviewed Results Reviewed: No imaging is available for review. Assessment & Plan Assessment & Plan (1) Lumbar spondylosis: Code(s): M47.816 - Spondylosis without myelopathy or radiculopathy, lumbar region Category: Medical (2) Myofascial pain: Code(s): M79.18 - Myalgia, other site Category: Medical Plan 63-year-old female status post trigger point injections under ultrasound guidance. I had a long discussion with the patient regarding options of continuing facet interventions. She stated that she had in fact always received more than 80% response to prior facet interventions including diagnostic and therapeutic facet blocks and that the 50% fingers quoted earlier were in fact related to her overall total body pain symptoms and not specific to the low back/lumbar area. We went over details of lumbar facet denervation as well as temporary medial branch nerve stimulation as potential therapeutic options that can be explored further. We will see how she responds to today's intervention and plan for potential facet interventions in the future based on more than 80% relief with prior interventions. Scribed for Dr. Narvaez by Herbie Martinez, medical record librarians teacher, on 11/23/2023. I, Dr. Narvaez, have personally reviewed and agree with the information entered by the scribe. Coding Level of Care Code Est Pt Level 3 (73379) Diagnoses Lumbar spondylosis M47.816 Myofascial pain M79.18 CPT Codes Details - Trigger Point Multiple: 27763- Trigger point injection =/>3 ([id number])
== END 2023-11-23 10:03 | disposition home or self-care (01) ==
PROVIDERS: PCP Internal Medicine; Visit Provider Internal Medicine
DX: M79.18 Myalgia, other site (principal)
CPT/HCPCS: 20553; 99213

== ENCOUNTER → 2023-11-23 09:14 | Outpatient (BNVA) | payer BC, SELFPAY | PROVIDERS: PCP Internal Medicine; Visit Provider Internal Medicine | DX: M79.18 Myalgia, other site (principal); M47.816 Spondylosis without myelopathy or radiculopathy, lumbar region | CPT/HCPCS: 20553; J2795; J3301 ==

== ENCOUNTER 2024-01-25 09:17 | Outpatient (AMB) | payer BC, SELFPAY ==
--- OUTSIDE RECORDS SUMMARY | 2024-01-25 09:19 | XMS_ITS ---
Author Organization [facility] Address [address] [place] [address] Care Team Providers Care Grit Removal Operator Name Role Phone MAIDA GUERRERO Primary Care Provider REASON FOR VISIT Bone Density Encounters Encounter Location Date Provider Diagnosis [facility] [address] [place] [address] 01/24/2024 MAIDA GUERRERO Encounter for screening for osteoporosis Z13.820 Assessments Encounter Date Diagnosis (ICD Code) Assessment Notes Treatment Notes Treatment Clinical Notes Section Notes 01/24/2024 Encounter for screening for osteoporosis (ICD-10 - Z13.820) Plan Of Treatment Pending Test Test Name Order Date Bone Density 01/24/2024 Next Appt Details Provider Name:Xavier Cardona, 1 03/26/2024 09:30:00 AM, [address], [place], [address], Progress Notes * MAINE JohannaDOB: 2 (63 yo F)Acc No.[id number]:01/24/2024 Patient:?Johanna HALLMAN :1960???Age:63 Y???Sex:Female Address:[address] [place] [id number] Subjective: * Chief Complaints: * ???Bone Density * Medical History:? * Surgical History:? * Hospitalization/Major Diagno stic Procedure:? * Medications:? Objective: * Vitals:? * Physical Examination:? Assessment: * Assessment: 1.?Encounter for screening f or osteoporosis - Z13.820??? Plan: * Treatment: * Procedure Codes:? * true * Date:? Generated for Jasen abel/Rahul/Hedy on:?01/25/2024 09:19 AM EST
--- OUTSIDE RECORDS SUMMARY | 2024-01-25 09:19 | XMS_ITS ---
Author Organization [facility] Address [address] [place] [address] Care Team Providers Care Assistant Women'S Soccer Coach Name Role Phone JESSEMaheshMAIDA Primary Care Provider [phone] Allergies No Known Allergies Reason For Referral Reason Acne-Hill side derm Referral Organization [facility] Referring Provider First Name MAIDA Referring Provider Last Name JESSE Referring Provider Speciality Internal M edicine Referred Provider Specialty Dermatology Referral Priority Routine Reason left shoulder pain- [facility] [place] Diagnosis 1 Annual physical exam (Z00.00) Referral Organization [facility] Referring Provider First Name MAIDA Referring Provider Last Name JESSE Referring Provider Speciality Internal M edicine Referred Provider Specialty Physical The rapist Referral Priority Routine REASON FOR VISIT CPE Medications Medication SIG (Take, Route, Frequency, Duration) Notes Start Date End Date Status Rosuvastatin Calcium 20 MG 1 tablet Oral ly Once a day Active Quviviq 25 MG 1 tablet within 30 minutes of bedtime Orally Once a day prn Active Levothyroxine Sodium 75 MCG 1 tablet in the morning on an empty stomach Orally Once a day for 90 days Active Meloxicam 15 MG 1 tablet Orally Once a day for 90 days Active Rinvoq 15 MG 1 tablet Orally Once a day Active Social History Tobacco Use: Social History Observation Description Date Details (start date - stop date) Never Smoker NA - NA Tobacco Use/Smoking Question Answer Notes Are you a nonsmoker Vital Signs Temperature 96.9 degrees Fahrenheit 01/23/20 24 Oximetry 96 % 01/23/2024 Heart Rate 77 /min 01/23/2024 Blood pressure systolic 114 mm Hg 01/23/20 24 Blood pressure diastolic 74 mm Hg 024 Weight 155.3 lbs 01/23/2024 BMI 24.69 kg/m2 01/23/2024 Height 5'6.5 in 01/23/2024 Encounters Encounter Location Date Provider Diagnosis [facility] [address] [place] [address] 01/23/2024 MAIDA GUERRERO Hypothyroidism, unspecified E03.9 ; Annual physical exam Z00.00 ; Mixed hyperlipidemia E78.2 ; Ankylosing spondylitis of cervicothoracic region M45.3 ; Pain in left shoulder M25.512 ; Impaired fasting glucose R73.01 and Acne, unspecified L70.9 Assessments Encounter Date Diagnosis (ICD Code) Assessment Notes Treatment Notes Treatment Clinical Notes Section Notes 01/23/2024 Hypothyroidism, unspecified (ICD-10 - E03.9) 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 Plan is as follows: Hyperlipidemia. Continue Rosuvastatin 20 MG once a day. she usually takes it for inflammation and lipid panel within normal limits. EKG is normal sinus rhythm at [address] or T wave changes, no bundle branch blocks, normal Hypothyroidism. Continue Levothyroxine 75 MCG and advised to take it first thing in the morning on an empty stomach. Ankylosing spondylitis. She takes Meloxicam 15 MG and Rinvoq 15 MG once a day. She follows up with Dr. Hari Foster MD Sleep issues. She follows up with Dr. Jana Schwab at [facility]. Left shoulder joint pain. Most likely shoulder impingement/adhes salina capsulitis. Will do x-ray of the left shoulder joint and referral to physical therapy. Acne. She needs a referral to see a different solid waste facility operator. She wants to be on Accutane and they want her to do tests every time she goes. She is clearly in menopause and very low risk for . Osteoarthritis and she follows up with Charlotte Sheppard MD for PRP injections Eye screening. She sees her Dr Cooley regularly. Skin screening. She sees her solid waste facility operator regularly. Breast cancer screening. She had her mammogram in 2022. She follows up with her mortgage servicing specialist Dr. Federica Barahona for breast and pelvic exams. Immunizations. She is up-to-date on her COVID, influenza, shingles and TDAP vaccinations. Screening blood work before next appointment. She is full code and her is her healthcare proxy. General health concerns discussed with patient. 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 Plan is as follows: Hyperlipidemia. Continue Rosuvastatin 20 MG once a day. she usually takes it for inflammation and lipid panel within normal limits. EKG is normal sinus rhythm at [address] or T wave changes, no bundle branch blocks, normal Hypothyroidism. Continue Levothyroxine 75 MCG and advised to take it first thing in the morning on an empty stomach. Ankylosing spondylitis. She takes Meloxicam 15 MG and Rinvoq 15 MG once a day. She follows up with Dr. Hari Foster MD Sleep issues. She follows up with Dr. Jana Schwab at [facility]. Left shoulder joint pain. Most likely shoulder impingement/adhes salina capsulitis. Will do x-ray of the left shoulder joint and referral to physical therapy. Acne. She needs a referral to see a different solid waste facility operator. She wants to be on Accutane and they want her to do tests every time she goes. She is clearly in menopause and very low risk for . Osteoarthritis and she follows up with Charlotte Sheppard MD for PRP injections Eye screening. She sees her Dr Cooley regularly. Skin screening. She sees her solid waste facility operator regularly. Breast cancer screening. She had her mammogram in 2022. She follows up with her mortgage servicing specialist Dr. Federica Barahona for breast and pelvic exams. Immunizations. She is up-to-date on her COVID, influenza, shingles and TDAP vaccinations. Screening blood work before next appointment. She is full code and her is her healthcare proxy. General health concerns discussed with patient. 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 Plan is as follows: Hyperlipidemia. Continue Rosuvastatin 20 MG once a day. she usually takes it for inflammation and lipid panel within normal limits. EKG is normal sinus rhythm at [address] or T wave changes, no bundle branch blocks, normal Hypothyroidism. Continue Levothyroxine 75 MCG and advised to take it first thing in the morning on an empty stomach. Ankylosing spondylitis. She takes Meloxicam 15 MG and Rinvoq 15 MG once a day. She follows up with Dr. Hari Foster MD Sleep issues. She follows up with Dr. Jana Schwab at [facility]. Left shoulder joint pain. Most likely shoulder impingement/adhes salina capsulitis. Will do x-ray of the left shoulder joint and referral to physical therapy. Acne. She needs a referral to see a different solid waste facility operator. She wants to be on Accutane and they want her to do tests every time she goes. She is clearly in menopause and very low risk for . Osteoarthritis and she follows up with Charlotte Sheppard MD for PRP injections Eye screening. She sees her Dr Cooley regularly. Skin screening. She sees her solid waste facility operator regularly. Breast cancer screening. She had her mammogram in 2022. She follows up with her mortgage servicing specialist Dr. Federica Barahona for breast and pelvic exams. Immunizations. She is up-to-date on her COVID, influenza, shingles and TDAP vaccinations. Screening blood work before next appointment. She is full code and her is her healthcare proxy. General health concerns discussed with patient. 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 Plan is as follows: Hyperlipidemia. Continue Rosuvastatin 20 MG once a day. she usually takes it for inflammation and lipid panel within normal limits. EKG is normal sinus rhythm at [address] or T wave changes, no bundle branch blocks, normal Hypothyroidism. Continue Levothyroxine 75 MCG and advised to take it first thing in the morning on an empty stomach. Ankylosing spondylitis. She takes Meloxicam 15 MG and Rinvoq 15 MG once a day. She follows up with Dr. Hari Foster MD Sleep issues. She follows up with Dr. Jana Schwab at [facility]. Left shoulder joint pain. Most likely shoulder impingement/adhes salina capsulitis. Will do x-ray of the left shoulder joint and referral to physical therapy. Acne. She needs a referral to see a different solid waste facility operator. She wants to be on Accutane and they want her to do tests every time she goes. She is clearly in menopause and very low risk for . Osteoarthritis and she follows up with Charlotte Sheppard MD for PRP injections Eye screening. She sees her Dr Cooley regularly. Skin screening. She sees her solid waste facility operator regularly. Breast cancer screening. She had her mammogram in 2022. She follows up with her mortgage servicing specialist Dr. Federica Barahona for breast and pelvic exams. Immunizations. She is up-to-date on her COVID, influenza, shingles and TDAP vaccinations. Screening blood work before next appointment. She is full code and her is her healthcare proxy. General health concerns discussed with patient. 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 Plan is as follows: Hyperlipidemia. Continue Rosuvastatin 20 MG once a day. she usually takes it for inflammation and lipid panel within normal limits. EKG is normal sinus rhythm at [address] or T wave changes, no bundle branch blocks, normal Hypothyroidism. Continue Levothyroxine 75 MCG and advised to take it first thing in the morning on an empty stomach. Ankylosing spondylitis. She takes Meloxicam 15 MG and Rinvoq 15 MG once a day. She follows up with Dr. Hari Foster MD Sleep issues. She follows up with Dr. Jana Schwab at [facility]. Left shoulder joint pain. Most likely shoulder impingement/adhes salina capsulitis. Will do x-ray of the left shoulder joint and referral to physical therapy. Acne. She needs a referral to see a different solid waste facility operator. She wants to be on Accutane and they want her to do tests every time she goes. She is clearly in menopause and very low risk for . Osteoarthritis and she follows up with Charlotte Sheppard MD for PRP injections Eye screening. She sees her Dr Cooley regularly. Skin screening. She sees her solid waste facility operator regularly. Breast cancer screening. She had her mammogram in 2022. She follows up with her mortgage servicing specialist Dr. Federica Barahona for breast and pelvic exams. Immunizations. She is up-to-date on her COVID, influenza, shingles and TDAP vaccinations. Screening blood work before next appointment. She is full code and her is her healthcare proxy. General health concerns discussed with patient. 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 Plan is as follows: Hyperlipidemia. Continue Rosuvastatin 20 MG once a day. she usually takes it for inflammation and lipid panel within normal limits. EKG is normal sinus rhythm at [address] or T wave changes, no bundle branch blocks, normal Hypothyroidism. Continue Levothyroxine 75 MCG and advised to take it first thing in the morning on an empty stomach. Ankylosing spondylitis. She takes Meloxicam 15 MG and Rinvoq 15 MG once a day. She follows up with Dr. Hari Foster MD Sleep issues. She follows up with Dr. Jana Schwab at [facility]. Left shoulder joint pain. Most likely shoulder impingement/adhes salina capsulitis. Will do x-ray of the left shoulder joint and referral to physical therapy. Acne. She needs a referral to see a different solid waste facility operator. She wants to be on Accutane and they want her to do tests every time she goes. She is clearly in menopause and very low risk for . Osteoarthritis and she follows up with Charlotte Sheppard MD for PRP injections Eye screening. She sees her Dr Cooley regularly. Skin screening. She sees her solid waste facility operator regularly. Breast cancer screening. She had her mammogram in 2022. She follows up with her mortgage servicing specialist Dr. Federica Barahona for breast and pelvic exams. Immunizations. She is up-to-date on her COVID, influenza, shingles and TDAP vaccinations. Screening blood work before next appointment. She is full code and her is her healthcare proxy. General health concerns discussed with patient. 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 Plan is as follows: Hyperlipidemia. Continue Rosuvastatin 20 MG once a day. she usually takes it for inflammation and lipid panel within normal limits. EKG is normal sinus rhythm at [address] or T wave changes, no bundle branch blocks, normal Hypothyroidism. Continue Levothyroxine 75 MCG and advised to take it first thing in the morning on an empty stomach. Ankylosing spondylitis. She takes Meloxicam 15 MG and Rinvoq 15 MG once a day. She follows up with Dr. Hari Foster MD Sleep issues. She follows up with Dr. Jana Schwab at [facility]. Left shoulder joint pain. Most likely shoulder impingement/adhes salina capsulitis. Will do x-ray of the left shoulder joint and referral to physical therapy. Acne. She needs a referral to see a different solid waste facility operator. She wants to be on Accutane and they want her to do tests every time she goes. She is clearly in menopause and very low risk for . Osteoarthritis and she follows up with Charlotte Sheppard MD for PRP injections Eye screening. She sees her Dr Cooley regularly. Skin screening. She sees her solid waste facility operator regularly. Breast cancer screening. She had her mammogram in 2022. She follows up with her mortgage servicing specialist Dr. Federica Barahona for breast and pelvic exams. Immunizations. She is up-to-date on her COVID, influenza, shingles and TDAP vaccinations. Screening blood work before next appointment. She is full code and her is her healthcare proxy. General health concerns discussed with patient. Plan Of Treatment Pending Test Test Name Order Date Bone Density 01/23/2024 Xray: Shoulder Left-Min 2 Vws 01/23/2024 Future Test Test Name Order Date Hemoglobin [id number] 01/23/2024 TSH+Free [id number] 01/23/2024 Referrals Referral Date Details 01/23/2024 01/23/2024, Acne-Hil l side derm 01/23/2024 01/23/2024, left checo ulder pain- [facility] [place] Next Appt Details Follow Up: 1 Year- Reny DOUGHERTY n: Provider Name:Xavier Cardona, 1 03/26/2024 09:30:00 AM, [address], [place], [address], Progress Notes * Johanna HALLMANDOB: [birth year] (63 yo F)Acc No.[id number]:01/23/2024 Progress Notes Patient:?Johanna HALLMAN Provider:?MAIDA GUERRERO MD :1960???Age:63 Y???Sex:Female D ate:01/23/2024 Address:[address] [place] [address] Subjective: * Chief Complaints: * ???CPE * HPI: ???Internal Medicine:?Dr Lexx is a 63-year-old lady with hyperlipidemia, hypothyroidism and ankylosing spondylitis; follows up with Rheumatology Dr. Hari Foster and she is on [employer] is here to annual physical. Vision is stable and she sees Dr Cooley. Hearing is stable. Neurocognitive functions are stable. She is physically active and she walks everyday. No history of fall. She does not need help with ADLs and IADLs. She sees Dr Schwab at sleep medicine, appetite is good. No GI or symptoms. She does not appear anxious or depressed. He denies any other active issues or concerns. * ROS:?General/Constitutional:?Overall health?Good.?Change in appetite?denies.?Chills?denies.?Fever?denies.?Night sweats?denies.?Sleep disturbance?denies.?Weight gain?denies.?Weight loss?denies.?Neurologic:?Difficulty speaking?denies.?Dizziness?denies.?Gait abnormality?denies.?Headache?denies.?Loss of strength?denies.?Memory loss?denies.?Seizures?denies.?Tingling/Numbness?denies .?Ophthalmologic:?Blurred vision?denies.?Discharge?denies.?Dry eye?denies.?Red eye?denies.?ENT:?Change in Voice?Denies.?Cold Symptoms?Denies.?Cough?Denies.?Dizziness?Denies.?Nasal Congestion?Denies.?Otalgia?Denies.?postnasal drip?Denies.?Blocked ear?denies.?Nosebleed?denies.?Snoring?denies.?Cardiovascular:?Diaphoresis?Denies.?Pedal Edema?Denies.?PND (Paroxsymal nocturnal dyspnea)?Denies.?Chest pain?denies.?Difficulty laying flat?denies.?Dyspnea on exertion?denies.?Heart murmur?denies.?Orthopnea?denies.?Respiratory:?Snoring?denies.?Asthma?denies.?Cough?denies.?Shortness of breath with exertion?denies.?Sputum production?denies.?Wheezing?denies.?Gastrointestinal:?Change in bowel habits?denies.?Constipation?denies.?Decreased appetite?denies.?Diarrhea?denies.?Heartburn?denies.?Nausea?denies.?Vomiting?riccardo es.?Musculoskeletal:?tingling/numbness?Denies.?myalgias?Denies.?Joint Swelling?Denies.?extremeties?normal.?Arthritis?denies.?Back problems?denies.?Carpal tunnel?denies.?Joint stiffness?left shoulder joint.?Muscle aches?denies.?Endocrine:?Bowel Changes?Denies.?Breast Discharge?Denies.?poor libido?Denies.?Cold intolerance?denies.?Excessive sweating?denies.?Excessive thirst?denies.?Frequent urination?denies.?Thyroid problems?denies.?Skin:?Bruising?Denies.?Eczema?denies.?Hair changes?denies.?Rash?denies.?Skin lesion(s)?denies.?Psychiatric:?Anxiety?denies.?Depressed mood?denies.?Difficulty sleeping?denies.?Nervous breakdown?denies.?Substance abuse?denies.?Urology:?abnormal menstrual bleeding?denies.?blood in urine?denies.?burning on urination?denies.?difficulty urinating?denies.?discharge?denies.?dysuria?denies.? * Medical History:? * Surgical History:?cervical s pine surgery * Hospitalization/Major Diagno stic Procedure:? * Family History:?Mother: of melanoma and she had breast cancer, diagnosed with Hypertension, Heart Disease, Cancer.?Siblings: sister of heart attackbrother had heart disease, diagnosed with Diabetes, Heart Disease.?Father: diagnosed with Heart Disease.? mother had breast cancer, mother had melanoma Sister has DM type I brother had congestive heart failure and cardiomyopathy. * Social History:?Tobacco Use:?Tobacco Use/Smoking?Are you a?nonsmoker ???Drugs/Alcohol:?Do you drink alcohol?: yes?.?Miscellaneous:?Children: 1. ?Exercise: Patient exercises. ?Marital status: . ?Occupation: Retired physician. * Medications:?TakingQuviviq 2 5 MG Tablet 1 tablet within 30 minutes of bedtime Orally Once a day , Notes to Pharmacist: prnRosuvastatin Calcium 20 MG Tablet 1 tablet Orally Once a day Rinvoq 15 MG Tablet Extended Release 24 Hour 1 tablet Orally Once a day Meloxicam 15 MG Tablet 1 tablet Orally Once a day Levothyroxine Sodium 75 MCG Tablet 1 tablet in the morning on an empty stomach Orally Once a day Medication List reviewed and reconciled with the patientTaking Quviviq 25 MG Tablet 1 tablet within 30 minutes of bedtime Orally Once a day , Notes to Pharmacist: prnTaking Rosuvastatin Calcium 20 MG Tablet 1 tablet Orally Once a day Taking Rinvoq 15 MG Tablet Extended Release 24 Hour 1 tablet Orally Once a day Taking Meloxicam 15 MG Tablet 1 tablet Orally Once a day Taking Levothyroxine Sodium 75 MCG Tablet 1 tablet in the morning on an empty stomach Orally Once a day Medication List reviewed and reconciled with the patient * Allergies:?N.K.D.A.no[Allerg ies Verified] Objective: * Vitals:?Temp:96.9F, Oxygen s at %:96%, HR:77/min, BP:114/74mm Hg, Wt:155.3lbs, BMI:24.69Index, Ht: 5'6.5 . * ???Past Orders: ???Lab:[id number] (Order Ryley e - 01/16/2024) (Collection Date & Time - 01/16/2024 10:37 AM) ? Value Reference Range ?TSH 0.535 0.450-4.500 - u IU/mL ???Lab:CBC, Platelet, No Dif ferential-[id number] (Order Date - 01/16/2024) (Collection Date & Time - 01/16/2024 10:37 AM) ? Value Reference Range ?WBC 3.2 L 3.4-10.8 - x10E 3/uL ?RBC 4.19 3.77-5.28 - x10 E6/uL ?Hemoglobin 13.3 11.1-15.9 - g/dL ?Hematocrit 41.3 34.0-46.6 - % ?MCV 99 H 79-97 - fL ?MCH 31.7 26.6-33.0 - pg ?MCHC 32.2 31.5-35.7 - g/d L ?RDW 13.0 11.7-15.4 - % ?Platelets 254 150-450 - x10E3/uL ???Lab:Lipid Panel-[id number] (O rder Date - 01/16/2024) (Collection Date & Time - 01/16/2024 10:37 AM) ? Value Reference Range ?Cholesterol, Total 195 1 00-199 - mg/dL ?Triglycerides 48 0-149 - mg/dL ?HDL Cholesterol 94 >39 - mg/dL ?VLDL Cholesterol Fred 9 5-40 - mg/dL ?LDL Chol Calc (NIH) 92 0-99 - mg/dL ???Lab:Comp. Metabolic Panel ([id number] (Order Date - 01/16/2024) (Collection Date & Time - 01/16/2024 10:37 AM) ? Value Reference Range ?Glucose 100 H 70-99 - mg/d L ?BUN 15 8-27 - mg/dL ?Creatinine 0.86 0.57-1.00 - mg/dL ?BUN/Creatinine Ratio 17 12-28 - ?Sodium 141 134-144 - mmo l/L ?Potassium 4.3 3.5-5.2 - mmol/L ?Chloride 105 96-106 - mm ol/L ?Carbon Dioxide, Total 22 20-29 - mmol/L ?Calcium 9.2 8.7-10.3 - m g/dL ?Protein, Total 6.3 6.0-8 .5 - g/dL ?Albumin 4.2 3.9-4.9 - g/ dL ?Globulin, Total 2.1 1.5- 4.5 - g/dL ?Bilirubin, Total 0.5 0.0 -1.2 - mg/dL ?Alkaline Phosphatase 71 44-121 - IU/L ?AST (SGOT) 36 0-40 - IU /L ?ALT (SGPT) 29 0-32 - IU /L ?eGFR 76 >59 - mL/min/1. 73 * Examination: ???General Examination: ?Psychiatry?Normal.?GENERAL APPEARANCE:?Well developed, well nourished, in no acute distress.?MUSCULOSKELETAL:?there is no swelling, erythema of the left shoulder joint.? Discomfort on left deltoid muscle.? Decreased internal rotation.?HEAD:?Normocephalic, atraumatic.?EYES:?Pupils equal, round, reactive to light and accommodation, sclera non-icteric.?EARS:?auditory canal clear tympanic membrane intact, clear light reflex present .?ORAL CAVITY:?Normal.?THROAT:?Clear.?OROPHARYNX?Normal.?SINUSES?Normal.?NECK/THYROID:?Neck supple, full range of motion, no cervical lymphadenopathy.?SKIN:?Warm and dry, no suspicious lesions.?HEART:?S1, S2 normal regular rate and rhythm no murmurs, rubs, gallops .?LUNGS:?clear anteriorly and posteriorly good air movement no wheezes, rales, rhonchi .?BREASTS:?__.?ABDOMEN:?Soft, nontender, nondistended, bowel sounds present, normal.?EXTREMITIES:?Normal.?PERIPHERAL PULSES:?Normal.?NEUROLOGIC:?Nonfocal,? appropriate?motor strength normal upper and lower extremities, sensory exam intact.?FEMALE GENITOURINARY:?__.?MALE GENITOURINARY:?__.?PODIATRIC:?Normal.?Oxygen Therapy Technician? .? Assessment: * Assessment: 1.?Annual physical exam - Z0 0.00 (Primary)???2.?Hypothyroidism, unspecified - E03.9???3.?Mixed hyperlipidemia - E78.2???4.?Ankylosing spondylitis of cervicothoracic region - M45.3???5.?Pain in left shoulder - M25.512???6.?Impaired fasting glucose - R73.01???7.?Acne, unspecified - L70.9??? 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 Plan is as follows: Hyperlipidemia. Continue Rosuvastatin 20 MG once a day. she usually takes it for inflammation and lipid panel within normal limits. EKG is normal sinus rhythm at [address] or T wave changes, no bundle branch blocks, normal Hypothyroidism. Continue Levothyroxine 75 MCG and advised to take it first thing in the morning on an empty stomach. Ankylosing spondylitis. She takes Meloxicam 15 MG and Rinvoq 15 MG once a day. She follows up with Dr. Hari Foster MD Sleep issues. She follows up with Dr. Jana Schwab at [facility]. Left shoulder joint pain.? Most likely shoulder impingement/adhesive capsulitis.? Will do x-ray of the left shoulder joint and referral to physical therapy. Acne.? She needs a referral to see a different solid waste facility operator.? She wants to be on Accutane and they want her to do tests every time she goes.? She is clearly in menopause and very low risk for . Osteoarthritis and she follows up with Charlotte Sheppard MD for PRP injections Eye screening. She sees her Dr Cooley regularly. Skin screening. She sees her solid waste facility operator regularly. Breast cancer screening. She had her mammogram in 2022. She follows up with her mortgage servicing specialist Dr. Federica Barahona for breast and pelvic exams. Immunizations. She is up-to-date on her COVID, influenza, shingles and TDAP vaccinations. Screening blood work before next appointment. She is full code and her is her healthcare proxy. General health concerns discussed with patient. Plan: * Treatment: 2.?Hypothyroidism, unspecifi ed?LAB: TSH+Free [id number] (Ordered for 01/23/2024) 3.?Pain in left shoulder?Imaging: Xray: Shoulder Left-Min 2 Vws 4.?Impaired fasting glucose?LAB: Hemoglobin [id number] (Ordered for 01/23/2024) 5.?Others? Referral To:Dermatology ?Reason:Acne-[facility] side derm * Procedure Codes:?3074F SYST BP LT 130 MM [id number] DIAST BP < 80 MM [id number] ELECTROCARDIOGRAM, [id number] AUDIT/DAST, 15-30 [id number] BRIEF EMOTIONAL/BEHAV ASSMT * Preventive Medicine:?COVID (3) 2020, (3) 2021, (1) 2022, (1) 2023 FLU 2023 PREVNAR 20 09/2021 SHINGRIX 04/2021, 07/2021 TD[facility] 10/2016 [facility] MCCLELLAN [facility] 12/2020 10 YR? EYE EXAM DR. FIELDS 2023 COUNSELOR MANAGER 2020 MAMMOGRAM [facility] 07/2023. * Follow Up:?1 Year- AW * * Sign off status: Completed true * Provider:?MAIDA GUERRERO MD Date:?01/22 Generated for Jasen abel/Rahul/eTransmitting on:?01/25/2024 09:19 AM EST History and Physical Notes * HPI (History of Present Illness) Category Sub-Category Detail Notes Category Not es Internal Medicine Lexx is a 63-year-old lady with hyperlipidemia, hypothyroidism and ankylosing spondylitis; follows up with Rheumatology Dr. Hari Foster and she is on Biologics is here to annual physical. Vision is stable and she sees Dr Cooley. Hearing is stable. Neurocognitive functions are stable. She is physically active and she walks everyday. No history of fall. She does not need help with ADLs and IADLs. She sees Dr Schwab at sleep medicine, appetite is good. No GI or symptoms. She does not appear anxious or depressed. He denies any other active issues or concerns. Examination Category Sub-Category Detail Notes Category Not es General Examination GENERAL APPEARANCE: Well dev eloped, well nourished, in no acute distress HEAD: Normocephalic, atrau matic EYES: Pupils equal, round, reactive to light and accommodation, sclera non-icteric EARS: auditory canal clear tympanic membrane intact, clear light reflex present THROAT: Clear NECK/THYROID: Neck supple, full ra nge of motion, no cervical lymphadenopathy HEART: S1, S2 normal regula r rate and rhythm no murmurs, rubs, gallops LUNGS: clear anteriorly and posteriorly good air movement no wheezes, rales, rhonchi ABDOMEN: Soft, nontender, non distended, bowel sounds present, normal NEUROLOGIC: Nonfocal, appropriat e motor strength normal upper and lower extremities, sensory exam intact SKIN: Warm and dry, no shiva picious lesions EXTREMITIES: Normal PERIPHERAL PULSES: Normal BREASTS: __ MUSCULOSKELETAL: there is no swelling , erythema of the left shoulder joint. Discomfort on left deltoid muscle. Decreased internal rotation MALE GENITOURINARY: __ FEMALE GENITOURINARY: __ ORAL CAVITY: Normal PODIATRIC: Normal Psychiatry Normal OROPHARYNX Normal SINUSES Normal Oxygen Therapy Technician Consultation Request Notes Referral Date Referring Provider Referred Provider Not es 01/23/2024 MAIDA GUERRERO , Acne-[facility] side derm 01/23/2024 MAIDA GUERRERO , left shoulder pain- [facility] [place]
--- OUTSIDE RECORDS SUMMARY | 2024-01-25 09:20 | XMS_ITS ---
Author Organization [facility] Address [address] [address] Care Team Providers Care Battery Assembler Dry Cell Name Role Phone MAIDA GUERRERO Primary Care Provider [phone] REASON FOR VISIT Meloxicam & Synthroid rx Medications Medication SIG (Take, Route, Frequency, Duration) Notes Start Date End Date Status Levothyroxine Sodium 75 MCG 1 tablet in the morning on an empty stomach Orally Once a day for 90 days Active Meloxicam 15 MG 1 tablet Orally Once a day for 90 days Active Encounters Encounter Location Date Provider Diagnosis [facility] [address] [address] 07/05/2023 MAIDA GUERRERO Plan Of Treatment Medication Medication Name Sig Start Date Stop Date Notes Levothyroxine Sodium 75 MCG 1 tablet in the morning on an empty stomach Orally Once a day for 90 days Meloxicam 15 MG 1 tablet Orally Once a day for 90 days Next Appt Details Provider Name:Xavier Cardona, 1 03/26/2024 09:30:00 AM, [address] [place] [address], [phone], Progress Notes * Johanna HALLMANDOB: 2 (63 yo F)Acc No.[id number]:07/05/2023 Patient:?Johanna HALLMAN :1960???Age:63 Y???Sex:Female Address:[address] [place] [address] * Refills? Refill Meloxicam Tablet, 15 MG, Orally, 90, 1 tablet, Once a day, 90 days, Refills=3 Refill Levothyroxine Sodium Tablet, 75 MCG, Orally, 90, 1 tablet in the morning on an empty stomach, Once a day, 90 days, Refills=3 * true * Date:? Generated for Jasen abel/Rahul/Terellitting on:?01/25/2024 09:19 AM EST
--- OUTSIDE RECORDS SUMMARY | 2024-01-25 09:20 | XMS_ITS | Patient Health Record ---
Author Organization [facility] Address [address] [facility] [address] [place] [address] Care Team Providers Care Services Coordinator Name Role Phone MAIDA GUERRERO Primary Care Provider Allergies No Known Allergies Results Component Value Reference Range Notes Comp. Metabolic Panel ([id number] Reviewed date:01/17/2024 07:44:09 AM Interpretation: Performing Lab:[facility] [place], [address] [facility], Phone - [phone], Director - MDJodry Notes/Report: Glucose 100 70-99 mg/dL BUN 15 8-27 mg/dL Creatinine 0.86 0.57-1.00 mg/dL eGFR 76 >59 mL/min/1.73 BUN/Creatinine Ratio 17 12-28 Sodium 141 134-144 mmol/L Potassium 4.3 3.5-5.2 mmol/L Chloride 105 96-106 mmol/L Carbon Dioxide, Total 22 20-29 mmol/L Calcium 9.2 8.7-10.3 mg/dL Protein, Total 6.3 6.0-8.5 g/dL Albumin 4.2 3.9-4.9 g/dL Globulin, Total 2.1 1.5-4.5 g/dL Bilirubin, Total 0.5 0.0-1.2 mg/dL Alkaline Phosphatase 71 44-121 IU/L AST (SGOT) 36 0-40 IU/L ALT (SGPT) 29 0-32 IU/L Lipid [id number] Reviewed date:01/17/2024 07:44:14 AM Interpretation: Performing Lab:[facility] [place], [address] [facility], Phone - [phone], Director - MDJodry Notes/Report: Cholesterol, Total 195 100-199 mg/dL Triglycerides 48 0-149 mg/dL HDL Cholesterol 94 >39 mg/dL VLDL Cholesterol Fred 9 5-40 mg/dL LDL Chol Calc ([facility]) 92 0-99 mg/dL CBC, Platelet, No Differenti al-[id number] Reviewed date:01/17/2024 07:44:16 AM Interpretation: Performing Lab:[facility] [place], [address] [facility], [place], Phone - [phone], Director - MDJodry Notes/Report: WBC 3.2 3.4-10.8 x10E3/uL RBC 4.19 3.77-5.28 x10E6/uL Hemoglobin 13.3 11.1-15.9 g/dL Hematocrit 41.3 34.0-46.6 % MCV 99 79-97 fL MCH 31.7 26.6-33.0 pg MCHC 32.2 31.5-35.7 g/dL RDW 13.0 11.7-15.4 % Platelets 254 150-450 x10E3/uL [id number] Reviewed date:01/17/2024 07:41:40 AM Interpretation: Performing Lab:[facility] [place], [address] [facility], [place], Phone - [phone], Director - MDJodry Notes/Report: TSH 0.535 0.450-4.500 uIU/mL Reason For Referral Reason Acne-Hill side derm Referral Organization [facility] Referring Provider First Name BEY Referring Provider Last Name [facility] Referring Provider Speciality Internal edicine Referred Provider Specialty Dermatology Referral Priority Routine Reason left shoulder pain- [facility] [place] Diagnosis 1 Annual physical exam (Z00.00) Referral Organization [facility] Referring Provider First Name [facility] Referring Provider Last Name [facility] Referring Provider Speciality Internal M edicine Referred Provider Specialty Physical The rapist Referral Priority Routine Medications Medication SIG (Take, Route, Frequency, Duration) [...] 1 tablet Orally Once a day Active Immunizations Vaccine Route Administration Date Status Comme nts COVID 19 Moderna Unknown 11/14/2021 Administered COVID Moderna Unknown 04/15/2020 Administered COVID Moderna Unknown 05/20/2020 Administered COVID Moderna Unknown 10/04/2020 Administered COVID Moderna Unknown 06/11/2021 Administered COVID Moderna Unknown 09/13/2021 Administered Flublok Unknown 11/05/2023 Administered Prevnar 20 Unknown 09/06/2021 Administered Shingrix Unknown 04/28/2021 Administered Shingrix Unknown 07/18/2021 Administered TDAP Unknown 10/06/2010 Administered TDAP Unknown 10/06/2016 Administered Social History Tobacco Use: Social History Observation Description Date Details (start date - stop date) Never Smoker NA - NA Tobacco Use/Smoking Question Answer Notes Are you a nonsmoker Problems Problem Type SNOMED Code ICD Code Onset Dates Problem Status W/U Status Risk Notes Problem Hypothyroidism (10991161) Hypothyroidism, unspecified (E03.9) Active confirmed Problem Mixed hyperlipidemia (753365442) Mixed hyperlipidemia (E78.2) Active confirmed Problem Ankylosing spondylitis (0188441) Ankylosing spondylitis of cervicothoracic region (M45.3) Active confirmed Vital Signs Heart Rate 77 /min 01/23/2024 Temperature 96.9 degrees Fahrenheit 01/23/2024 Blood pressure diastolic 74 mm Hg 01/23/2024 Oximetry 96 % 01/23/2024 Height 5'6.5 in 01/23/2024 Blood pressure systolic 114 mm Hg 01/23/2024 Weight 155.3 lbs 01/23/2024 BMI 24.69 kg/m2 01/23/2024 Encounters Encounter Location Date Provider Diagnosis [facility] [address] [facility] [address] [place] [address] 02/23/2023 BEY GUL Hypothyroidism, unspecified E03.9 ; Mixed hyperlipidemia E78.2 and Ankylosing spondylitis of cervicothoracic region M45.3 [facility] [address] [facility] [address] [place] [address] 01/23/2024 BEY GUL Hypothyroidism, unspecified E03.9 ; Annual physical exam Z00.00 ; Mixed hyperlipidemia E78.2 ; Ankylosing spondylitis of cervicothoracic region M45.3 ; Pain in left shoulder M25.512 ; Impaired fasting glucose R73.01 and Acne, unspecified L70.9 [facility] [address] [facility] [address] [place] [address] [facility] [address] [facility] [address] [place] [address] 01/24/2024 [facility] Encounter for screen ing for osteoporosis Z13.820 Assessments Encounter Date Diagnosis (ICD Code) Assessment Notes Treatment Notes Treatment Clinical Notes Section Notes 02/23/2023 Hypothyroidism, unspecified (ICD-10 - E03.9) 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 Plan is as follows: Hyperlipidemia. Continue Rosuvastatin 20 MG once a day. she usually takes it for inflammation Hypothyroidism. Continue Levothyroxine 75 MCG and advised to take it first thing in the morning on an empty stomach. Ankylosing spondylitis. She takes Meloxicam 15 MG and Rinvoq 15 MG once a day. She follows up with Dr. Hari Foster MD Sleep issues. She follows up with Dr. Jana Schwab at [facility] and she follows up with Charlotte Sheppard MD for PRP injections Eye screening. She sees her Dr Cooley regularly. Skin screening. She sees her gluing machine operator electronic regularly. Breast cancer screening. She had her mammogram in 2022. She follows up with her iso coordinator Dr. Federica Barahona for breast and pelvic exams. Immunizations. She is up-to-date on her COVID, influenza, shingles and TDAP vaccinations. Screening blood work before next appointment General health concerns discussed with patient. Scribe services used to formulate this note under HIPAA compliance and under [place] law mandated for scribe services. Patient aware of service. Verbal consent and written consent taken from the patient. Patient understands and verbalizes understanding of the scribes services and all questions answered regarding scribes services. Patient agrees to use of scribes services. 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 Plan is as follows: Hyperlipidemia. Continue Rosuvastatin 20 MG once a day. she usually takes it for inflammation Hypothyroidism. Continue Levothyroxine 75 MCG and advised to take it first thing in the morning on an empty stomach. Ankylosing spondylitis. She takes Meloxicam 15 MG and Rinvoq 15 MG once a day. She follows up with Dr. Hair Foster MD Sleep issues. She follows up with Dr. Jana Schwab at [facility] Osteoarthritis and she follows up with Charlotte Sheppard MD for PRP injections Eye screening. She sees her Dr Cooley regularly. Skin screening. She sees her gluing machine operator electronic regularly. Breast cancer screening. She had her mammogram in 2022. She follows up with her iso coordinator Dr. Federica Barahona for breast and pelvic exams. Immunizations. She is up-to-date on her COVID, influenza, shingles and TDAP vaccinations. Screening blood work before next appointment General health concerns discussed with patient. Scribe services used to formulate this note under HIPAA compliance and under [place] law mandated for scribe services. Patient aware of service. Verbal consent and written consent taken from the patient. Patient understands and verbalizes understanding of the scribes services and all questions answered regarding scribes services. Patient agrees to use of scribes services. 01/23/2024 Hypothyroidism, unspecified (ICD-10 - E03.9) Mrs [...] follows up with Dr. Jana Schwab at [facility]. Left shoulder joint pain. Most likely shoulder impingement/adhes salina capsulitis. Will do x-ray of the left shoulder joint and referral to physical therapy. Acne. She needs a referral to see a different gluing machine operator electronic. She wants to be on Accutane and they want her to do tests every time she goes. She is clearly in menopause and very low risk for . Osteoarthritis and she follows up with Charlotte Sheppard MD for PRP injections Eye screening. She sees her Dr Cooley regularly. Skin screening. She sees her gluing machine operator electronic regularly. Breast cancer screening. She had her mammogram in 2022. She follows up with her iso coordinator Dr. Federica Barahona for breast and pelvic [...] follows up with Dr. Jana Schwab at [facility]. Left shoulder joint pain. Most likely shoulder impingement/adhes salina capsulitis. Will do x-ray of the left shoulder joint and referral to physical therapy. Acne. She needs a referral to see a different gluing machine operator electronic. She wants to be on Accutane and they want her to do tests every time she goes. She is clearly in menopause and very low risk for . Osteoarthritis and she follows up with Charlotte Sheppard MD for PRP injections Eye screening. She sees her Dr Cooley regularly. Skin screening. She sees her gluing machine operator electronic regularly. Breast cancer screening. She had her mammogram in 2022. She follows up with her iso coordinator Dr. Federica Barahona for breast and pelvic exams. Immunizations. She is up-to-date on her COVID, influenza, shingles and TDAP vaccinations. Screening blood work before next appointment. She is full code and her is her healthcare proxy. General health concerns discussed with patient. 01/24/2024 Encounter for screening for osteoporosis (ICD-10 - Z13.820) 01/23/2024 Mixed hyperlipidemia (ICD-10 - E78.2) Mrs [...] follows up with Dr. Jana Schwab at [facility]. Left shoulder joint pain. Most likely shoulder impingement/adhes salina capsulitis. Will do x-ray of the left shoulder joint and referral to physical therapy. Acne. She needs a referral to see a different gluing machine operator electronic. She wants to be on Accutane and they want her to do tests every time she goes. She is clearly in menopause and very low risk for . Osteoarthritis and she follows up with Charlotte Sheppard MD for PRP injections Eye screening. She sees her Dr Cooley regularly. Skin screening. She sees her gluing machine operator electronic regularly. Breast cancer screening. She had her mammogram in 2022. She follows up with her iso coordinator Dr. Federica Barahona for breast and pelvic exams. Immunizations. She is up-to-date on her COVID, influenza, shingles and TDAP vaccinations. Screening blood work before next appointment. She is full code and her is her healthcare proxy. General health concerns discussed with patient. 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 Plan is as follows: Hyperlipidemia. Continue Rosuvastatin 20 MG once a day. she usually takes it for inflammation Hypothyroidism. Continue Levothyroxine 75 MCG and advised to take it first thing in the morning on an empty stomach. Ankylosing spondylitis. She takes Meloxicam 15 MG and Rinvoq 15 MG once a day. She follows up with Dr. Hari Foster MD Sleep issues. She follows up with Dr. Jana Schwab at [facility] Osteoarthritis and she follows up with Charlotte Sheppard MD for PRP injections Eye screening. She sees her Dr Cooley regularly. Skin screening. She sees her gluing machine operator electronic regularly. Breast cancer screening. She had her mammogram in 2022. She follows up with her iso coordinator Dr. Federica Barahona for breast and pelvic exams. Immunizations. She is up-to-date on her COVID, influenza, shingles and TDAP vaccinations. Screening blood work before next appointment General health concerns discussed with patient. Scribe services used to formulate this note under HIPAA compliance and under [place] law mandated for scribe services. Patient aware of service. Verbal consent and written consent taken from the patient. Patient understands and verbalizes understanding of the scribes services and all questions answered regarding scribes services. Patient agrees to use of scribes services. 01/23/2024 Ankylosing spondylitis of cervicothoracic region (ICD-10 [...] follows up with Dr. Jana Schwab at [facility]. Left shoulder joint pain. Most likely shoulder impingement/adhes salina capsulitis. Will do x-ray of the left shoulder joint and referral to physical therapy. Acne. She needs a referral to see a different gluing machine operator electronic. She wants to be on Accutane and they want her to do tests every time she goes. She is clearly in menopause and very low risk for . Osteoarthritis and she follows up with Charlotte Sheppard MD for PRP injections Eye screening. She sees her Dr Cooley regularly. Skin screening. She sees her gluing machine operator electronic regularly. Breast cancer screening. She had her mammogram in 2022. She follows up with her iso coordinator Dr. Federica Barahona for breast and pelvic [...] follows up with Dr. Jana Schwab at [facility]. Left shoulder joint pain. Most likely shoulder impingement/adhes salina capsulitis. Will do x-ray of the left shoulder joint and referral to physical therapy. Acne. She needs a referral to see a different gluing machine operator electronic. She wants to be on Accutane and they want her to do tests every time she goes. She is clearly in menopause and very low risk for . Osteoarthritis and she follows up with Charlotte Sheppard MD for PRP injections Eye screening. She sees her Dr Cooley regularly. Skin screening. She sees her gluing machine operator electronic regularly. Breast cancer screening. She had her mammogram in 2022. She follows up with her iso coordinator Dr. Federica Barahona for breast and pelvic [...] follows up with Dr. Jana Schwab at [facility]. Left shoulder joint pain. Most likely shoulder impingement/adhes salina capsulitis. Will do x-ray of the left shoulder joint and referral to physical therapy. Acne. She needs a referral to see a different gluing machine operator electronic. She wants to be on Accutane and they want her to do tests every time she goes. She is clearly in menopause and very low risk for . Osteoarthritis and she follows up with Charlotte Sheppard MD for PRP injections Eye screening. She sees her Dr Cooley regularly. Skin screening. She sees her gluing machine operator electronic regularly. Breast cancer screening. She had her mammogram in 2022. She follows up with her iso coordinator Dr. Federica Barahona for breast and pelvic [...] follows up with Dr. Jana Schwab at [facility]. Left shoulder joint pain. Most likely shoulder impingement/adhes salina capsulitis. Will do x-ray of the left shoulder joint and referral to physical therapy. Acne. She needs a referral to see a different gluing machine operator electronic. She wants to be on Accutane and they want her to do tests every time she goes. She is clearly in menopause and very low risk for . Osteoarthritis and she follows up with Charlotte Sheppard MD for PRP injections Eye screening. She sees her Dr Cooley regularly. Skin screening. She sees her gluing machine operator electronic regularly. Breast cancer screening. She had her mammogram in 2022. She follows up with her iso coordinator Dr. Federica Barahona for breast and pelvic exams. Immunizations. She is up-to-date on her COVID, influenza, shingles and TDAP vaccinations. Screening blood work before next appointment. She is full code and her is her healthcare proxy. General health concerns discussed with patient. Plan Of Treatment Pending Test Test Name Order Date Bone Density 01/23/2024 Bone Density 01/24/2024 Xray: Shoulder Left-Min 2 Vws 01/23/2024 Future Test Test Name Order Date Hemoglobin [id number] 01/23/2024 TSH+Free [id number] 01/23/2024 Next Appt Details Provider Name:Xavier Cardona, 1 03/26/2024 09:30:00 AM, [address] [place] [address], [phone], Insurance Providers Payer Name Payer Address Payer Phone Subscriber Number Group Number Insured Name Patient Relationship to Insured Coverage Start Date Coverage End Date [facility] [address] [place] [address] [phone] [id number] Johanna Hallman Self - patient is the insured Medical (General) History Medical History History ICD Code hyperlipidemia hypothyroidism ankylosing spondylitis see Dr. Hari hutchinson Difficulty falling asleep and she follow s up with Dr. Jana Schwab Osteoarthritis and she follows up with Bernarda Ceron MD Surgical History Surgery Date(Month/Year) cervical spine surgery
[2024-01-25 09:58] VITALS: BP 122/83; PULSE 76; RESP 16; O2SAT 97; BMI 25.2
--- NOTE | 2024-01-25 09:58 | A.OFFVIS_ITS ---
Vital Signs 01/25/24 09:58 Height 5 ft 6 in Weight 156 lb BMI 25.2 BP 122/83 Blood Pressure Location Lt brachial Position Sitting Respiration 16 Pulse 76 Pulse Source Pulse Oximeter Pulse Oximetry (%) 97 Oxygen Delivery Method Room Air Intake Visit Reasons: Ulises shoulder inj Allergies No Known Allergies Allergy (Verified 01/25/24 10:01) Medication List - Last Reconciled 01/25/24 by Jacqueline Duffy LPN levothyroxine 75 mcg PO DAILY lidocaine 5% 1 patch topical DAILY meloxicam 15 mg PO DAILY upadacitinib ER (Rinvoq) 15 mg PO DAILY zolpidem mg PO HPI HPI Ulises shoulder inj: Details: 63-year-old female who presents today to the office for bilateral shoulder injections. Denies any recent cough, cold, infection, fever or other significant changes in medical history since last office visit. Past procedures? 11/23/23: Trigger point injections: % relief. 05/17/23: PRP Joint Injection/Platelet Rich Plasma Injection: >50% relief. 05/17/23: Greater Trochanteric Bursa Injection, Bilateral: >75% relief. 05/17/23: Rotator Cuff Tendon Injection, Bilateral: 50% relief. 04/12/23: A2M lumbar facets: >75% relief. 04/12/23: Sacroiliac Joint Injection, bilateral, PRP: >75% relief. 04/12/23: Lumbar Intra-articular Facet Injections, bilateral, L3/L4, L4/L5, L5/S1: 75% relief. 01/05/2023: Left subacromial bursa injection, ultrasound guided: 50% relief. 02/01/22: Bilateral L3-L4, L4-L5, L5-S1 Intraarticular Facet Injection ? >50% relief for more than 2 month. 11/16/21: Bilateral Therapeutic SIJ/GTB Injection ? 80% relief for more than 2 months. 04/20/21: Bilateral SIJ and GTB Injection ? 50% relief on the right, 75% on the left for more than 2 months. [facility] Medical History (Updated 12/18/23 @ 14:10 by Kervin Narvaez MD) Sacroiliitis Lumbar spondylosis Trochanteric bursitis of both hips Ankylosing spondylitis Hypothyroidism Fusion of toes of right foot Surgical History (Updated 01/24/24 @ 16:23 by Felix Delgado MD) H/O repair of left rotator cuff Hx of fusion of cervical spine Hx of tonsillectomy Social History (Updated 01/07/21 @ 11:55 by Luke Chaves) Patient Tobacco Use Status: Never used Tobacco Review of Systems Const All systems reviewed & are unremarkable except as noted in HPI and below Physical Exam Vital Signs: Last Vital Signs Pulse 76 01/25/24 09:58 Resp 16 01/25/24 09:58 BP 122/83 01/25/24 09:58 Pulse Ox 97 01/25/24 09:58 Oxygen Delivery Method Room Air 01/25/24 09:58 BMI result Body Mass Index 25.2 General: Appears afebrile. Alert and oriented. Mood and affect appropriate. Follows and participates in conversation appropriately. Respiratory effort is unlabored. Able to transition from sit to stand unassisted. Ambulates with bilaterally normal heel strike and toe off. Office Procedures AMB Joint Injection/Aspiration Joint Injection/Aspiration Details: Bilateral subacromial bursa injection, ultrasound guided Primary Site: right shoulder Secondary Site: left shoulder Prep: site was prepped using aseptic technique and site was prepped using sterile technique Injected: Kenalog (30 mg on each side), with 3 mL of (0.25% ropivacaine ) and in the subcromial space (bilateral) Approach Used: posterolateral Procedure: The patient tolerated the procedure well Coding Details: An ultrasound image of the injection was taken and stored in the permanent record. 90431 - Acromioclavicular with ultrasound guidance (Bilateral) Procedure code (CPT) selection complete Results Reviewed Results Reviewed: No imaging is available for review. Assessment & Plan Assessment & Plan (1) Calcific tendinitis of both shoulders: Code(s): M75.31 - Calcific tendinitis of right shoulder; M75.32 - Calcific tendinitis of left shoulder Category: Medical (2) Lumbar spondylosis: Code(s): M47.816 - Spondylosis without myelopathy or radiculopathy, lumbar region Category: Medical Plan Patient is status post bilateral subacromial bursa injection, ultrasound guided. Patient tolerated procedure well and was discharged home in stable condition with discharge instructions. All questions were answered. Once again, I had a long discussion with the patient regarding options of continuing facet interventions. She stated that she had in fact always received more than 80% response to prior facet interventions including diagnostic and therapeutic facet blocks and that the 50% fingers quoted earlier were in fact related to her overall total body pain symptoms and not specific to the low back/lumbar area. We went over details of lumbar facet denervation as well as temporary medial branch nerve stimulation as potential therapeutic options that can be explored further. However, given her excellent response of more than 80% relief each time we have done a therapeutic facet injection, she is interested in repeating that procedure before considering any other type of therapy. I informed her that I will request insurance authorization for repeat therapeutic lumbar facet corticosteroid injection and we will proceed based on the outcome of that PA. Scribed for Dr. Narvaez by Herbie Martinez, medical claims assistant, on 01/25/2024. I, Dr. Narvaez, have personally reviewed and agree with the information entered by the scribe. Coding Level of Care Code Est Pt Level 4 (41692) Diagnoses Calcific tendinitis of both shoulders M75.31; M75.32 Lumbar spondylosis M47.816 CPT Codes Coding - Joint 6: 72735 - Acromioclavicular with ultrasound guidance ( [id number])
== END 2024-01-25 10:23 | disposition home or self-care (01) ==
PROVIDERS: PCP Internal Medicine; Visit Provider Internal Medicine
DX: M47.816 Spondylosis without myelopathy or radiculopathy, lumbar region (principal); M75.31 Calcific tendinitis of right shoulder; M75.32 Calcific tendinitis of left shoulder
CPT/HCPCS: 20606; 99214

== ENCOUNTER → 2024-01-25 09:17 | Outpatient (BNVA) | payer BC, SELFPAY | PROVIDERS: PCP Internal Medicine; Visit Provider Internal Medicine | DX: M75.31 Calcific tendinitis of right shoulder (principal); M70.61 Trochanteric bursitis, right hip; M75.32 Calcific tendinitis of left shoulder; M47.816 Spondylosis without myelopathy or radiculopathy, lumbar region | CPT/HCPCS: 20606; J2795; J3301 ==

== ENCOUNTER 2024-04-11 10:42 | Outpatient (AMB) | payer BC, SELFPAY ==
[2024-04-11 10:44] VITALS: BP 132/83; PULSE 86; RESP 16; BMI 25.4
--- NOTE | 2024-04-11 10:44 | A.OFFVIS_ITS ---
Vital Signs 04/11/24 10:44 Height 5 ft 6 in Weight 157 lb 2 oz BMI 25.4 BP 132/83 Blood Pressure Location Rt brachial Position Sitting Respiration 16 Pulse 86 Oxygen Delivery Method Room Air Intake Visit Reasons: Ulises lumbar TPI Program Medical Director Required: No Sales Representative Malt Liqu[employer]: Sales Representative [employer] Present Accompanied by: Meena Newell Allergies No Known Allergies Allergy (Verified 04/11/24 10:50) HPI HPI Ulises lumbar TPI: Details: History of Present Illness The patient is a 64-year-old female presenting with chronic pain. She has experienced significant pain relief from previous trigger point injections, which lasted more than two months. The pain management strategy included corticosteroids, balancing the therapy benefits with her history of avascular necrosis of the femoral head, which requires careful consideration of treatment options. Since the initial pain management approach provided effective relief, the patient seeks to repeat the intervention while she evaluates alternative treatment modalities, such as nerve stimulation. Despite the potential complications due to her medical history, injections were well tolerated and previously effective. Pain Description - Onset and Timing: Chronic pain managed with injections - Location: Lumbar musculature, multifidus, quadratus lumborum, and iliocostalis muscles - Relief: Trigger point injections provide over two months of relief - Aggravating Factors: Presence of avascular necrosis may limit steroid use - Other Interventions: Considering temporary nerve stimulation Pain Management - Affect: Not explicitly discussed - Analgesia: Successful relief with corticosteroid injections, seeking repeat procedure - Adverse Effects: No significant issues noted but acknowledges avascular necrosis concerns - Activities of Daily Living: Injections improve pain, facilitating better function - Aberrant Drug Related Behaviors: Not reported or discussed Injection Trigger Point Multi Pre-procedure diagnosis: Myofascial pain Post-procedure diagnosis: Myofascial pain Site and number of trigger points: Rhomboid Lumbar paraspinal muscles Multifidus, lat dorsi Solution: Total volume administered (8mL ropivacaine 0.25% and 80 mg of kenalog). The procedure, its benefits, and its risks were explained to the patient and all questions were answered. A pulse oximeter monitor was attached and the patient was monitored throughout the procedure. Prior to the start of the procedure, a ?time out? was performed to confirm correct patient, procedure, and laterality. Trigger points were identified by ultrasound guidance. The skin was cleaned with Chloraprep. A 80mm 21 guage echostim needle was used and advanced under ultrasound guidance to the identified trigger areas. Approximately 0.5 ml to 1 ml of injectate was delivered to the trigger point. This process was repeated at each trigger point site. The patient tolerated the procedure well. Post-procedure, breath sounds were equal at both sides of the chest. The patient tolerated the procedure well, without complication. The patient denied any numbness, paresthesias, or weakness. Post-procedure vitals were recorded as part of the nursing discharge note in electronic medical record. Following a period of observation, the patient was discharged in stable condition with written discharge instructions. An ultrasound image of the injection was taken and stored in the permanent record. Trigger Point Multiple: 66352- Trigger point injection =/>3 PFSH Medical History (Updated 12/18/23 @ 14:10 by Kervin Narvaez MD) Sacroiliitis Lumbar spondylosis Trochanteric bursitis of both hips Ankylosing spondylitis Hypothyroidism Fusion of toes of right foot Surgical History (Updated 01/24/24 @ 16:23 by Felix Delgado MD) H/O repair of left rotator cuff Hx of fusion of cervical spine Hx of tonsillectomy Social History (Updated 01/07/21 @ 11:55 by Luke Chaves) Patient Tobacco Use Status: Never used Tobacco Physical Exam Vital Signs: Last Vital Signs Pulse 86 04/11/24 10:44 Resp 16 04/11/24 10:44 BP 132/83 04/11/24 10:44 Oxygen Delivery Method Room Air 04/11/24 10:44 BMI result Body Mass Index 25.4 Assessment & Plan Assessment & Plan (1) Myofascial pain: Code(s): M79.18 - Myalgia, other site Category: Medical (2) Intractable back pain: Code(s): M54.9 - Dorsalgia, unspecified Category: Medical Plan Plan Repeat trigger point injections have been performed successfully, providing relief to the patient in managing chronic pain associated with her lumbar musculature. Given her history of avascular necrosis, we discussed the option of nerve stimulation as a possible alternative treatment pathway, which she will consider and report back on. Meanwhile, we aim to maintain her current regimen with corticosteroid injections, reevaluating as required based on her symptomatic relief and specific needs. Patient was informed and verbally consented to the use of an ambient scribe for clinic note documentation during this visit. Discussion Notes I discussed with the patient the procedures and options for managing her chronic pain. We noted the effectiveness of previous trigger point injections and the consideration of nerve stimulation as a possible alternative given her history of avascular necrosis. Consent for repeat injections was obtained following a thorough review of potential risks and benefits. For future treatment, we deliberated on extending the therapeutic approach to might involve less corticosteroid exposure, emphasizing her comfort with deciding based on her health status. Follow-up will depend on her response to the current treatment and acceptance of alternatives. Patient Instructions - Continue current pain relief regimen with trigger point injections. - Consider temporary nerve stimulation as an alternative and inform of any decision to proceed. - Monitor pain levels and note any changes or concerns post-procedure. - Follow up as needed for further treatment or evaluation. Coding Level of Care Code Est Pt Level 3 (31001) Diagnoses Myofascial pain M79.18 Intractable back pain M54.9
--- OUTSIDE RECORDS SUMMARY | 2024-04-11 12:13 | XMS_ITS | Clinical Summary ---
Author Organization [employer] [facility] it Address [address] [place] [address] Care Team Providers Care Medical Records Tech Name Role Phone Unavailable Primary Care Provider Unavailabl e Surgical History Surgery Date Site/Laterality Comments COLONOSCOPY PROCEDURE:COLONOSCOPY BREAST SURGERY PROCEDURE:BREAST SURGERY;COMMENT:Augmentation per pt BACK SURGERY PROCEDURE:BACK SURGERY;COMMENT:C 5 fusion per pt KNEE SURGERY Left PROCEDURE:KNEE SURGERY;COMMENT:ACL per pt SHOULDER SURGERY Left PROCEDURE:SHOULDER SURGERY;COMMENT:Rotator cuff per pt FOOT SURGERY Right PROCEDURE:FOOT SURGERY;COMMENT:Great toe per pt TONSILLECTOMY PROCEDURE:TONSILLECTOMY Medical History Medical History Date Comments Hypothyroidism DX:Hypothyroidis m Ankylosing spondylitis (CMS/HCC) DX:Ankylosing spondylitis (HCC);COMMENT:per pt Hyperlipidemia DX:Hyperlipidemi a ADHD (attention deficit hype ractivity disorder) DX:ADHD (attention deficit hyperactivity disorder) Social History Tobacco Use Types Packs/Day Years Used Date Smoking Tobacco: Never Smokeless Tobacco: Never Alcohol Use Standard Drinks/Week Comments Yes 0 (1 standard drink = 0.6 oz pur e alcohol) Comments Unknown Sex and Gender Information Value Date Recorded Sex Assigned at Not on file Legal Sex Female 9:23 AM EST Gender Identity Not on file Sexual Orientation Not on file Obstetrics History Plan of Treatment Health Maintenance Due Date Last Done Comments Breast Cancer Screening 1960 DTaP,Tdap,and Td Vaccines (1 - Tdap) 02/22/1980 Cervical Cancer Screening: P ap Smear 1982 Pneumococcal Vaccine: 50+ Ye ars (1 of 1 - PCV) 2011 Zoster Vaccines (1 of 2) 2011 Colorectal Cancer Screening: Colonoscopy 01/02/2022 Depression Screening 01/02/2022 HIV Screening 01/02/2022 Hepatitis C Screening 01/02/2022 Social Influencers of Health Screening 01/02/2022 COVID-19 Vaccine ( - 2023-2 5 season) 2023 Influenza Vaccine (#1) 2023 RSV Immunization Patients 60 + Years Old (1 - 1-dose 75+ series) 02/22/2036 HIB Vaccines Aged Out No longer eligi ble based on patient's age to complete this topic HPV Vaccines Aged Out No longer eligi ble based on patient's age to complete this topic Hepatitis A Vaccines Aged Out No long er eligible based on patient's age to complete this topic Hepatitis B Vaccines Aged Out No long er eligible based on patient's age to complete this topic IPV Vaccines Aged Out No longer eligi ble based on patient's age to complete this topic MMR Vaccines Aged Out No longer eligi ble based on patient's age to complete this topic Meningococcal ACWY Vaccine Aged Out N o longer eligible based on patient's age to complete this topic Meningococcal B Vacine Aged Out No lo nger eligible based on patient's age to complete this topic Pneumococcal Vaccine: Pediat rics (0 to 5 Years) and At-Risk Patients (6 to 64 Years) Aged Out No longer eligible b ased on patient's age to complete this topic RSV Immunization Patients Un kendrick 20 months Aged Out No longer eligible b ased on patient's age to complete this topic Varicella Vaccines Aged Out No longer eligible based on patient's age to complete this topic
--- OUTSIDE RECORDS SUMMARY | 2024-04-11 12:13 | XMS_ITS | Clinical Summary ---
Author Organization [facility] Address [address] [place] [address] Care Team Providers Care Planting Material Remover Name Role Phone Unavailable Primary Care Provider Unavailabl e Medications Medication Sig Dispensed Refills Start Date End Date Status Secukinumab (COSENTYX SC) Inject 300 mg under the skin every 28 days. 0 Active meloxicam (MOBIC) 15 MG tablet Take 1 tablet (15 mg total) by mouth daily. 0 Active levothyroxine (SYNTHROID) tablet 75 mcg Take 1 tablet (75 mcg total) by mouth every morning on an empty stomach. 0 Active amphetamine-dextroamph etamine (ADDERALL) 20 MG tablet TAKE 2&1/2 TABLETS DAILY 0 02/15/2022 Active rosuvastatin (CRESTOR) tablet 20 mg Take 1 tablet (20 mg total) by mouth every night at bedtime. 0 03/24/2022 Active Social History Tobacco Use Types Packs/Day Years Used Date Smoking Tobacco: Never Smokeless Tobacco: Never Alcohol Use Standard Drinks/Week Comments Yes 0 (1 standard drink = 0.6 oz pur e alcohol) rare Sex and Gender Information Value Date Recorded Sex Assigned at Female 04/03/2022 6:58 AM EST Gender Identity Not on file Sexual Orientation Not on file Job Start Date Occupation Industry Not on file Not on file Not on file Last Filed Vital Signs Vital Sign Reading Time Taken Comments Blood Pressure 142/84 04/03/2022 7:23 AM EST Pulse 60 04/03/2022 7:23 AM EST Temperature 36.8 ??C (98.2 ??F) 04/03/2022 7:23 AM ES T Respiratory Rate 14 04/03/2022 7:23 AM EST Oxygen Saturation 98% 04/03/2022 7:23 AM EST Inhaled Oxygen Concentration - - Weight 81.6 kg (180 lb) 03/31/2022 9:04 AM EST Height 167.6 cm (5' 6 ) 03/31/2022 9:04 AM EST Body Mass Index 29.05 03/31/2022 9:04 AM EST Plan of Treatment Health Maintenance Due Date Last Done Comments Hepatitis C Screening 1960 COVID-19 Vaccine (#1) 1961 Depression Screening 1973 BMI Counseling 1979 Preventative Health Evaluation 1979 Cervical Cancer Screening (P ap Smear) 1982 Colon Cancer Screening (Colonoscopy) 2006 Breast Cancer Screening (Mammogram) 2011 Shingrix-Zoster Vaccine (1 of 2) 2011 DTap / Tdap / Td (2 - Td or Tdap) 10/06/2020 011 Influenza Vaccine (#1) 2023 RSV Adult > 60+ Yrs or Pregn ant (1 - 1-dose 75+ series) 02/22/2036 Hepatitis B Vaccines Aged Out No long er eligible based on patient's age to complete this topic Pneumococcal Vaccine Aged Out No long er eligible based on patient's age to complete this topic RSV Ped < 20 months Aged Out No longe r eligible based on patient's age to complete this topic
--- OUTSIDE RECORDS SUMMARY | 2024-04-11 12:13 | XMS_ITS | Continuity of Care Document ---
Author Organization [facility] Address [address] [place] [address]- Care Team Providers Care Bridge Manager Name Role Phone Mela Shankar MD Primary Care Physician Encounter 03/19/24 - 03/26/24 [facility] [address], [address] [place] [address]- us Attending Physician: Mela Shankar MD Admitting Physician: Mela Shankar MD Referring Physician: Mela Shankar MD Encounter Type: OutPatient One Time Medications Quviviq 25 mg oral tablet See Instructions, 1 tablet By Mouth at bedtime- can increase to 2 tablet at bedtime if needed, # 30tablet, 3 Refills, Maintenance, 11/22/23 10:11:00 AM EDT, Tablet, [facility], Partial fill upon patient request if the prescription is for a schedule II opioid drug., 168, cm, 10/05/23 8:10:00 EDT, Height Start Date: 11/22/23 Status: Ordered Quantity: 30.0 Unit: tablet Repeat number: 4 Problem List Condition Confirmation Course Effective Dates Status Health Status Informant Psychophysiologic insomnia Confirmed Active Patient Care team information Care Team Personnel Name: Mela Shankar MD Position: S Physician - Primary Care Member Role: PCP Address: [address] [place] [address]- [place] Telecom: Care Team Related Persons Name: ALLYSON GROVE Insurance Providers Guarantor name: GUERITA GROVE Health Plan Information #: 2 Payer: [employer] Member Number: [id number] Policy Number: NA Group Number: [id number] Health Plan Information #: 1 Payer: [employer] Member Number: [id number] Policy Number: NA Group Number: [id number]
--- OUTSIDE RECORDS SUMMARY | 2024-04-11 12:13 | XMS_ITS ---
Author Organization [facility] Address [address] [facility] [address] [place] [address] Care Team Providers Care Card Reader Name Role Phone MAIDA GUERRERO Primary Care Provider REASON FOR VISIT Osteopenia Femoral Neck Encounters Encounter Location Date Provider Diagnosis [facility] [address] [facility] [address] [place] [address] 04/09/2024 MAIDA GUERRERO Plan Of Treatment Next Appt Details Provider Name:Xavier Dulce, 1 03/26/2024 09:30:00 AM, [address] [facility] [address], [place], [address], Progress Notes * Johanna HALLMANDOB: 2 (64 yo F)Acc No.[id number]:04/09/2024 Patient:?Johanna HALLMAN :1960???Age:64 Y???Sex:Female Address:[address] [place] [address] * * Date:?
--- OUTSIDE RECORDS SUMMARY | 2024-04-11 12:13 | XMS_ITS | Patient Health Record ---
Author Organization [facility] Address [address] [facility] [facility] [address] [place] [address] Care Team Providers Care Remediation Technician Name Role Phone MAIDA GUERRERO Primary Care Provider [phone] Allergies No Known Allergies Results Component Value Reference Range Notes Comp. Metabolic Panel ([id number] Reviewed date:01/17/2024 07:44:09 AM Interpretation: Performing Lab:[facility], [address] [facility], Phone - [phone], Director - MDJodry Notes/Report: Glucose 100 70-99 [...] IU/L ALT (SGPT) 29 0-32 IU/L Lipid Panel-[id number] Reviewed date:01/17/2024 07:44:14 AM Interpretation: Performing Lab:[facility], [address] [facility], Phone - [phone], Director - MDJodry Notes/Report: Cholesterol, Total 195 100-199 mg/dL Triglycerides 48 0-149 mg/dL HDL Cholesterol 94 >39 mg/dL VLDL Cholesterol Fred 9 5-40 mg/dL LDL Chol Calc ([facility]) 92 0-99 mg/dL CBC, Platelet, No Differenti al-[id number] Reviewed date:01/17/2024 07:44:16 AM Interpretation: Performing Lab:[facility] [place], [address] [facility], [place], Phone - [phone], Director - MDJodry Notes/Report: WBC 3.2 3.4-10.8 x10E3/uL RBC 4.19 3.77-5.28 x10E6/uL Hemoglobin 13.3 11.1-15.9 g/dL Hematocrit 41.3 34.0-46.6 % MCV 99 79-97 fL MCH 31.7 26.6-33.0 pg MCHC 32.2 31.5-35.7 g/dL RDW 13.0 11.7-15.4 % Platelets 254 150-450 x10E3/uL [id number] Reviewed date:01/17/2024 07:41:40 AM Interpretation: Performing Lab:[facility] [place], [address] [facility], [place], Phone - [phone], Director - MDJodry Notes/Report: TSH 0.535 0.450-4.500 uIU/mL Reason For Referral Reason Acne-Hill side derm Referral Organization [facility] Referring Provider First Name BEY Referring Provider Last Name [facility] Referring Provider Speciality Internal edicine Referred Provider Specialty Dermatology Referral Priority Routine Reason left shoulder pain- [facility] [place] Diagnosis 1 Annual physical exam (Z00.00) Referral Organization [facility] Referring Provider First Name [facility] Referring Provider Last Name [facility] Referring Provider Speciality Internal edicine Referred Provider Specialty Physical The rapist Referral Priority Routine Medications Medication SIG (Take, Route, Frequency, Duration) Notes Start Date End Date Status Pravastatin Sodium 10 MG 1 tablet Orally Once a day for 30 days 02/15/2024 Active Rosuvastatin Calcium 20 MG 1 tablet Oral [...] Status W/U Status Risk Notes Problem Hypothyroidism (58776980) Hypothyroidism, unspecified (E03.9) Active confirmed Problem Mixed hyperlipidemia (079443760) Mixed hyperlipidemia (E78.2) Active confirmed Problem Ankylosing spondylitis (9042915) Ankylosing spondylitis of cervicothoracic region (M45.3) Active confirmed Vital Signs Heart Rate 77 /min 01/23/2024 Temperature 96.9 degrees Fahrenheit 01/23/2024 Oximetry 96 % 01/23/2024 Blood pressure diastolic 74 mm Hg 01/23/2024 Height 5'6.5 in 01/23/2024 Blood pressure systolic 114 mm Hg 01/23/2024 Weight 155.3 lbs 01/23/2024 BMI 24.69 kg/m2 01/23/2024 Encounters Encounter Location Date Provider Diagnosis [address] [place] [address] 07/05/2023 MAIDA GUERRERO [address] [address] 01/24/2024 MAIDA GUERRERO Encounter for screen ing for osteoporosis Z13.[address] [address] 04/09/2024 [facility] [address] [facility] [facility] [address] [place] [address] 01/25/2024 [facility] [address] [facility] [facility] [address] [place] [address] 02/09/2024 [facility] [address] [facility] [facility] [address] [place] [address] 02/14/2024 [facility] [address] [facility] [facility] [address] [place] [address] 02/16/2024 [facility] [address] [place] [address] 02/19/2024 [facility] [address] [facility] [place] [address] 03/26/2024 [facility] [address] [facility] [place] [address] 03/29/2024 [facility] [address] [facility] [facility] [address] [place] [address] 04/01/2024 [facility] [address] [place] [address] 04/01/2024 [facility] [address] [facility] [place] [address] 04/06/2024 [facility] [address] [place] [address] 01/23/2024 [facility] Hypothyroidism, unspecified E03.9 ; Annual physical exam [...] follows up with Dr. Jana Schwab at [facility]. Left shoulder joint pain. Most likely shoulder impingement/adhes salina capsulitis. Will do x-ray of the left shoulder joint and referral to physical therapy. Acne. She needs a referral to see a different driver recruiter. She wants to be on Accutane and they want her to do tests every time she goes. She is clearly in menopause and very low risk for . Osteoarthritis and she follows up with Charlotte Sheppard MD for PRP injections Eye screening. She sees her Dr Cooley regularly. Skin screening. She sees her driver recruiter regularly. Breast cancer screening. She had her mammogram in 2022. She follows up with her block making machine operator Dr. Federica Barahona for breast and pelvic [...] follows up with Dr. Jana Schwab at [facility]. Left shoulder joint pain. Most likely shoulder impingement/adhes salina capsulitis. Will do x-ray of the left shoulder joint and referral to physical therapy. Acne. She needs a referral to see a different driver recruiter. She wants to be on Accutane and they want her to do tests every time she goes. She is clearly in menopause and very low risk for . Osteoarthritis and she follows up with Charlotte Sheppard MD for PRP injections Eye screening. She sees her Dr Cooley regularly. Skin screening. She sees her driver recruiter regularly. Breast cancer screening. She had her mammogram in 2022. She follows up with her block making machine operator Dr. Federica Barahona for breast and pelvic [...] follows up with Dr. Jana Schwab at [facility]. Left shoulder joint pain. Most likely shoulder impingement/adhes salina capsulitis. Will do x-ray of the left shoulder joint and referral to physical therapy. Acne. She needs a referral to see a different driver recruiter. She wants to be on Accutane and they want her to do tests every time she goes. She is clearly in menopause and very low risk for . Osteoarthritis and she follows up with Charlotte Sheppard MD for PRP injections Eye screening. She sees her Dr Cooley regularly. Skin screening. She sees her driver recruiter regularly. Breast cancer screening. She had her mammogram in 2022. She follows up with her block making machine operator Dr. Federica Barahona for breast and pelvic [...] follows up with Dr. Jana Schwab at [facility]. Left shoulder joint pain. Most likely shoulder impingement/adhes salina capsulitis. Will do x-ray of the left shoulder joint and referral to physical therapy. Acne. She needs a referral to see a different driver recruiter. She wants to be on Accutane and they want her to do tests every time she goes. She is clearly in menopause and very low risk for . Osteoarthritis and she follows up with Charlotte Sheppard MD for PRP injections Eye screening. She sees her Dr Cooley regularly. Skin screening. She sees her driver recruiter regularly. Breast cancer screening. She had her mammogram in 2022. She follows up with her block making machine operator Dr. Federica Barahona for breast and pelvic [...] follows up with Dr. Jana Schwab at [facility]. Left shoulder joint pain. Most likely shoulder impingement/adhes salina capsulitis. Will do x-ray of the left shoulder joint and referral to physical therapy. Acne. She needs a referral to see a different driver recruiter. She wants to be on Accutane and they want her to do tests every time she goes. She is clearly in menopause and very low risk for . Osteoarthritis and she follows up with Charlotte Sheppard MD for PRP injections Eye screening. She sees her Dr Cooley regularly. Skin screening. She sees her driver recruiter regularly. Breast cancer screening. She had her mammogram in 2022. She follows up with her block making machine operator Dr. Federica Barahona for breast and pelvic [...] follows up with Dr. Jana Schwab at [facility]. Left shoulder joint pain. Most likely shoulder impingement/adhes salina capsulitis. Will do x-ray of the left shoulder joint and referral to physical therapy. Acne. She needs a referral to see a different driver recruiter. She wants to be on Accutane and they want her to do tests every time she goes. She is clearly in menopause and very low risk for . Osteoarthritis and she follows up with Charlotte Sheppard MD for PRP injections Eye screening. She sees her Dr Cooley regularly. Skin screening. She sees her driver recruiter regularly. Breast cancer screening. She had her mammogram in 2022. She follows up with her block making machine operator Dr. Federica Barahona for breast and pelvic [...] follows up with Dr. Jana Schwab at [facility]. Left shoulder joint pain. Most likely shoulder impingement/adhes salina capsulitis. Will do x-ray of the left shoulder joint and referral to physical therapy. Acne. She needs a referral to see a different driver recruiter. She wants to be on Accutane and they want her to do tests every time she goes. She is clearly in menopause and very low risk for . Osteoarthritis and she follows up with Charlotte Sheppard MD for PRP injections Eye screening. She sees her Dr Cooley regularly. Skin screening. She sees her driver recruiter regularly. Breast cancer screening. She had her mammogram in 2022. She follows up with her block making machine operator Dr. Federica Barahoan for breast and pelvic exams. Immunizations. She [...] Future Test Test Name Order Date Hemoglobin [id number] 01/23/2024 TSH+Free [id number] 01/23/2024 Next Appt Details Provider Name:Xavier Cardona, 1 03/26/2024 09:30:00 AM, [address] [place] [address], [place], [address], Insurance Providers Payer Name Payer Address Payer Phone Subscriber Number Group Number Insured Name Patient Relationship to Insured Coverage Start Date Coverage End Date [facility] [id number] [place] [address] [id number] Johanna Hallman Self - patient is the insured Medical (General) History Medical History History ICD Code hyperlipidemia hypothyroidism ankylosing spondylitis see Dr. Hari hutchinson Difficulty falling asleep and she follow s up with Dr. Jana Schwab Osteoarthritis and she follows up with Bernarda Ceron MD Surgical History Surgery Date(Month/Year) cervical spine surgery
--- OUTSIDE RECORDS SUMMARY | 2024-04-11 12:14 | XMS_ITS | Clinical Summary ---
Author Organization [facility] Address [address] [place] [address] Care Team Providers Care Sizer Hand Name Role Phone Zohreh Borrero MD Primary Care Provider Unavailtomas e Zohreh Borrero MD Unavailable Unavailable Active Problems Problem Noted Date Diagnosed Date Acne 02/16/2020 ADHD 02/16/2020 Depression 02/16/2020 Hypothyroidism 02/16/2020 Ankylosing polyarthritis 02/16/2020 Overview (03/11/2023): Impression - 16Feb2020: She sees the Rheum, Dr Foster. Impression - 16Feb2020: She sees the Tin Pourer, Dr Foster regularly. Immunizations Name Administration Dates Next Due Influenza,seasonal,trivalent,preservative (FLUZO NE MDV) 11/20/2019 Family History Medical History Relation Name Comments Other Other disease : Famil y History;mother 96 htn,[place] breast cancer Father 65 [place] Htn hypothyroid Mgm 63 ? Mgf Relation Name Status Comments Other Social History Tobacco Use Types Packs/Day Years Used Date Smoking Tobacco: Never Assessed Comments:Smoking Status:No c urrent tobacco use Comments Unknown Sex and Gender Information Value Date Recorded Sex Assigned at Not on file Legal Sex Female 11:54 PM EDT Gender Identity Not on file Sexual Orientation Not on file Last Filed Vital Signs Vital Sign Reading Time Taken Comments Blood Pressure 128/82 02/16/2020 9:46 AM EST Pulse 68 02/16/2020 9:46 AM EST Temperature 36.4 ??C (97.5 ??F) 02/16/2020 9:46 AM ES T Respiratory Rate 16 02/16/2020 9:46 AM EST Oxygen Saturation 98% 02/16/2020 9:46 AM EST Inhaled Oxygen Concentration - - Weight 74.4 kg (164 lb) 02/16/2020 9:46 AM EST Height 167.6 cm (5' 6 ) 02/16/2020 9:46 AM EST Body Mass Index 26.47 02/16/2020 9:46 AM EST Plan of Treatment Health Maintenance Due Date Last Done Comments Pap Smear 1977 DTaP/Tdap/Td (1 - Tdap) 1979 Pneumococcal 50+ years (1 of 1 - PCV) 2011 Zoster (Shingrix) (1 of 2) 2011 Mammogram/Breast Imaging 07/10/2019 019, 07/02/2018 Colon Cancer Screening 10/18/2021 10/19/2011 COVID-19 Vaccine ( - 2023-2 5 season) 2023 Influenza (#1) 2023 11/20/2019 RSV (1 - 1-dose 75+ series) 02/22/2036 Colonoscopy Discontinued 10/19/2011, 10/19/2011 Bone Density Discontinued 01/08/2020 Hepatitis C Screening Completed 02/16/2020 LDL Cholesterol Discontinued 02/16/2020 Physical Discontinued 02/16/2020 HPV Vaccine Aged Out No longer eligi ble based on patient's age to complete this topic Hep A Aged Out No longer eligi ble based on patient's age to complete this topic Hep B Aged Out No longer eligi ble based on patient's age to complete this topic Hib Aged Out No longer eligi ble based on patient's age to complete this topic Meningococcal ACWY Aged Out No longer eligible based on patient's age to complete this topic Zoster (Zostavax) Discontinued Procedures Procedure Name Priority Date/Time Associated Diagnosis Comments HEPATITIS C ANTIBODY W/ REFLEX TO RNA, QN, RT PCR Routine 02/16/2020 10:23 AM EST LIPID PANEL, PLASMA Routine 02/16/2020 1 0:23 AM EST DUAL ENERGY DEXA BONE DENSITY ONE/MORE SITES AXIAL SKEL 01/08/2020 12:00 AM EST SCREENING MAMMOGRAPHY BILATERAL, 2 VIEWS EACH BREAST, INCLUDING CAD 07/09/2018 12:00 AM EDT COLONOSCOPY Routine 10/19/2011 9:15 AM EDT from Last 3 Months or Most Recently Relevant to Health Maintenance Results * HEPATITIS C ANTIBODY W/ REFLEX TO RNA, QN, RT PCR (02/16/2020 10:23 AM EST) Hepatitis C virus Ab NON-REACT [place] NON-REACT [place] PHCT CONVERSIONS Hepatitis C virus Ab 0.06 <1.00 PHCT CONVERSIONS Comment:Antibodies to HCV we re not detected. NOTE: This does not entirely exclude the possibility of exposure to HCV since antibody production may lag infection. If there is a high suspicion of HCV infection HCV RNA testing may be of diagnostic value. 02/16/2020 10:2 3 AM EST Narrative PHCT CONVERSIONS - 02/16/2020 4:59 PM EST Carbon Copy to follow to Patient. Testing Performed at: [facility], [address] [place] [address], , Shuttle Van Driver: Ly Brennan MD CL#[id number] 12:52PM by Zohreh Borrero: ??Labs look good, her cholesterol is too high, she should work on her diet and recheck in 3 months, nurse call. Zohreh Borrero MD LABORATORY Final Result PHCT CONVERSIONS * (ABNORMAL) LIPID PANEL, PLASMA (02/16/2020 10:23 AM EST) Cholesterol 265(H) 0 - 199 mg/dL PH[facility] CONVERSIONS Triglyceride 64 0 - 150 mg/dL PH[facility] CONVERSIONS VLDL Cholesterol 13 5 - 40 mg/dL PH[facility] CONVERSIONS HDL Cholesterol 91(H) 50 - 80 mg/dL PHCT CONVERSIONS LDL Cholesterol 162(H) 0 - 100 mg/dL PHCT CONVERSIONS Cholesterol Non-HDL 175(H) 0 - 130 mg/dl PHCT CONVERSIONS CHOL/HDL Ratio 2.9 PHCT CONVERSIONS 02/16/2020 10:2 3 AM EST Narrative PHCT CONVERSIONS - 02/16/2020 5:19 PM EST Carbon Copy to follow to Patient. FASTING: YES Testing Performed at: [facility], [address], [place] [address], , Shuttle Van Driver: Ly Brennan MD CL#[id number] 12:52PM by Zohreh Borrero: ??Labs look good, her cholesterol is too high, she should work on her diet and recheck in 3 months, nurse call. us Zohreh Borrero MD LABORATORY Final Result PHCT CONVERSIONS * DUAL ENERGY DEXA BONE DENSITY ONE/MORE SITES AXIAL SKEL (01/08/2020 12:00 AM EST) Narrative 01/08/2020 12:00 AM EST Ordered by an unspecified provider. us Unknown Provider GENERAL IMAGING- OTHER Final Re sult * SCREENING MAMMOGRAPHY BILATERAL, 2 VIEWS EACH BREAST, INCLUDING CAD (07/09/2018 12:00 AM EDT) Narrative 07/09/2018 12:00 AM EDT Ordered by an unspecified provider. us Unknown Provider GENERAL IMAGING- OTHER Final Re sult * COLONOSCOPY (10/19/2011 9:15 AM EDT) COLONOSCOPY, RESULT Normal PHCT CONVERSIONS DATE NEXT SCREEN VISIT 10 Years PHCT CONVERSIONS 10/19/2011 9:15 AM EDT us Php Unknown Prov PROCEDURES Final Result PHCT CONVERSIONS from Last 3 Months or Most Recently Relevant to Health Maintenance Care Teams Sizer Hand Relationship Specialty Start Date End Date Zohreh Borrero MD PCP - General 09/11/22 Zohreh Borrero MD PCP - Backup PCP Family Medicine 03/08/23
--- OUTSIDE RECORDS SUMMARY | 2024-04-11 12:14 | XMS_ITS | Continuity of Care Document ---
Author Organization [facility] Address [address] [place] [address]- Care Team Providers Care Rehabilitation Director Name Role Phone Mela Shankar MD Primary Care Phys[id number] Date(s): 02/14/24 - 03/15/24 [facility] [address] [place], [place] [address] Encounter Type: Triage Medications Quviviq 25 mg oral tablet See [...] Team Personnel Name: Mela Shankar MD Position: [facility] Physician - Primary Care Member Role: PCP Address: [address] [place] [address]- Telecom: Care Team Related Persons Name: ALLYSON GROVE Insurance Providers Guarantor name: GUERITA GROVE Health Plan Information #: 1 Payer: [employer] Member Number: NA Policy Number: NA Group Number: NA
--- OUTSIDE RECORDS SUMMARY | 2024-04-11 12:14 | XMS_ITS ---
Author Organization [facility] Address [address] [place] [address] [address] [place] [address] Care Team Providers Care Broker Associate Name Role Phone MAIDA GUERRERO Primary Care Provider [phone] REASON FOR VISIT RE:Bone Density Results Encounters Encounter Location Date Provider Diagnosis [facility] [address] [facility] [address] [place] [address] 04/06/2024 MAIDA GUERRERO Plan Of Treatment Next Appt Details Provider Name:Xavier Cardona, 1 03/26/2024 09:30:00 AM, [address] [facility] [address], [place], [address], Progress Notes * HALLMANJohanna GRAFFDOB: 2 (64 yo F)Acc No.[id number]:04/06/2024 Patient:?Johanna HALLMAN :1960???Age:64 Y???Sex:Female Address:[address] [place] [address] * true * Date:? Generated for Sanjayi page/Rahul/eTransmitting on:?04/11/2024 12:14 PM EST
--- OUTSIDE RECORDS SUMMARY | 2024-04-11 12:14 | XMS_ITS ---
Author Organization [facility] Address [address] [facility] [address] [place] [address] Care Team Providers Care Campus Dean Name Role Phone MAIDA GUERRERO Primary Care Provider [phone] REASON FOR VISIT Bone Density Results Encounters Encounter Location Date Provider Diagnosis [facility] [address] [facility] [address] [place] [address] 04/01/2024 MAIDA GUERRERO Plan Of Treatment Next Appt Details Provider Name:Annycalvin Cardona, 1 03/26/2024 09:30:00 AM, [address] [facility] [address], [place], [address], Progress Notes * HALLMANJohanna GRAFFDOB: 2 (64 yo F)Acc No.[id number]:04/01/2024 Patient:?Johanna HALLMAN :1960???Age:64 Y???Sex:Female Address:[facility] [place] [address] * true * Date:? Generated for Sanjayi page/Rahul/eTransmitting on:?04/11/2024 12:13 PM EST
== END 2024-04-11 11:23 | disposition home or self-care (01) ==
PROVIDERS: PCP Hospitalist; Visit Provider Internal Medicine
DX: M54.9 Dorsalgia, unspecified (principal); M79.18 Myalgia, other site
CPT/HCPCS: 20553; 99213

== ENCOUNTER → 2024-04-11 10:42 | Outpatient (BNVA) | payer BC, SELFPAY | PROVIDERS: PCP Hospitalist; Visit Provider Internal Medicine | DX: M79.18 Myalgia, other site (principal); M54.9 Dorsalgia, unspecified | CPT/HCPCS: 20553; J2795; J3301 ==

== ENCOUNTER 2024-05-09 08:07 | Outpatient (RCR) | payer BC, SELFPAY ==
--- NOTE | 2024-04-02 13:00 | MHC.PT.EP ---
[facility] [place] Office [place] Office [place] Office [address] Deana Vera [address] [phone] F: [phone] F: [phone] F: [phone] F: [phone] Physical Therapy Plan of Care Date of Evaluation: 04/02/24 Date of Surgery: Diagnosis: H/O REPAIR LEFT RC; MARGARITO CALCIFIC TENDONITIS; SCAPULAR STABILIZATION Assessment: 64 YO FEMALE REF TO PT FOR Lt SH PAIN/ CALCIFIC TENDONITIS.. H/O Lt RC REPAIR IN 2001 -> EXACERBATED Lt SH SXS IN DECEMBER 2023 AND HAD INJECTIONS IN JANUARY 2024-> HER SXS HAVE PERSISTED IN HER Lt DELTOID MM. THE Pt IS A RETIRED ER MD, SHE NOTES SHE IS ACTIVE AND INDEP AND HER CURRENT INJURY HAS LIMITED HER TOLERANCE TO HOBBIES AND ADLs. SHE IS LEFT HAND DOMINANT-> OF IMPORTANCE, THE Pt HAS ANKYLOSING SPONDYLITIS. OBJECTIVELY, DECR / PAINFUL Lt SH END ROM, (+) STRENGTH DEFICITS IN Lt SH ER AND GENERAL POSTERIOR RC, (+) CARMEN TYRA SIGN Lt, (+) POSTURAL ASYMMETRY/ DECR AWARENESS OF COMPENSATORY MOTION, AND Lt DELTOID/ GH Jt SXS THAT CAN INCREASE TO 9-10/10. SHE IS A GOOD PT CANDIDATE TO ADDRESS THE ABOVE, DEV A HEP, AND MANAGE Lt SH SXS. THE Pt AGREES W PT POC. Frequency and Duration: The patient will be seen 2 x WK x 4 WKS Short Term Goals: DECR Lt SH PAIN TO 2-3/10 AT MAX INITIATE HEP IMPROVE Pt'S POSTURAL SELF-CORRECTION -> ACTIVATE SCAP RETR/DEPR Fpc Goals: Pt INDEP W HEP AND SELF-SX MGMT TECHN Pt RESUME REG ADLs/ HOBBIES W/I Lt SH SXS IMPEDING HER SUE IMPROVED SPADI, AT EVAL (113/130) IMPROVED STRENGTH Lt SH COMPLEX/ SCAP MM Treatment Plan: Modalities to reduce pain, spasms and effusion. Manual therapy to restore motion and function. Therapeutic exercise to improve strength and flexibility. Neuromuscular re-education for posture and balance. Therapeutic activities to return to functional activities of daily living. Electronically signed by: DURAN ZELAYA,PT Please sign and return to therapist. Thank you for your referral.
--- NOTE | 2024-05-09 09:49 | MHC.PT.DC ---
[facility] [place] [facility] [place] [facility] [place] [facility] [address] Deana Vera [address] [phone] F: [phone] F: [phone] F: [phone] F: [phone] Physical Therapy Discharge Report Diagnosis: H/O REPAIR LEFT RC; MARGARITO CALCIFIC TENDONITIS; SCAPULAR STABILIZATION Date of Surgery: Date of Evaluation: 04/02/24 Date of Discharge: 05/09/24 Treatments to Date: 9 Cancellations to Date: No Shows to Date: Discharge Status: Achieved Goals Improved Function Independent with HEP Discharge Summary: GUERITA HAS PROGRESSED SIGNIFICANTLY IN PT AND SHE IS VERY PLEASED W HER CURRENT FUNCTIONAL STATUS, ADDRESSING Lt SH PAIN AND WEAKNESS-> HER SPADI SCORE AT EVAL WAS 113/130 AND TODAY AT D/C IT IS 18/130. GUERITA HAS BEEN ABLE TO RESUME REGULAR ADLs AND HOBBIES-> SHE HAS RESIDUAL Lt SH ER STRENGTH DEFICITS, HOWEVER, SHE HAS BEEN EDUC RE CONT W HER PROGRESSIVE HEP TO FURTHER STRENGTHEN Lt RC. SHE HAS MET HER PT GOALS AT THIS TIME AND IS D/C'D THIS DATE Electronically signed by: DURAN ZELAYA,PT Please sign and return to therapist. Thank you for your referral.
== END 2024-05-09 09:51 | disposition home or self-care (01) ==
LOC: HO.PT 08:07
PROVIDERS: PCP Hospitalist; Visit Provider Orthopaedic Surgery
DX: Z47.89 Encounter for other orthopedic aftercare (principal); Z98.890 Other specified postprocedural states
CPT/HCPCS: 97110; 97140; 97162

== ENCOUNTER 2024-06-13 09:56 | Outpatient (AMB) | payer BC, SELFPAY ==
[2024-06-13 09:58] VITALS: BP 148/82; PULSE 76; RESP 16; O2SAT 99; BMI 25.3
--- NOTE | 2024-06-13 09:58 | A.OFFVIS_ITS ---
Vital Signs 06/13/24 09:58 Height 5 ft 6 in Weight 157 lb BMI 25.3 BP 148/82 H Blood Pressure Location Rt brachial Position Sitting Respiration 16 Pulse 76 Pulse Source Pulse Oximeter Pulse Oximetry (%) 99 Oxygen Delivery Method Room Air Intake Visit Reasons: BILATERAL SHOULDER INJECTIONS Assembler For Puller Over Machine Required: No Heel Slugger: Heel Slugger Present Accompanied by: Jonathon Lyons Allergies No Known Allergies Allergy (Verified 06/13/24 09:59) Medication List - Last Reconciled 06/13/24 by Jacqueline Duffy LPN levothyroxine 75 mcg PO DAILY lidocaine 5% 1 patch topical DAILY meloxicam 15 mg PO DAILY upadacitinib ER (Rinvoq) 15 mg PO DAILY zolpidem mg PO HPI HPI BILATERAL SHOULDER INJECTIONS: Details: History of Present Illness The patient is a 64-year-old female presenting with bilateral shoulder injections and management of right-sided sacroiliac joint pain. She reports having issues with sciatica, which primarily affects her right side. This condition becomes aggravated with increased physical activity, including walking two hours a day and participating in tango lessons. The pain sometimes radiates to her knee but typically improves with pain management strategies like ice application and prednisone use. She seeks continued relief from her recurring right-sided sacroiliac joint pain, noting that previous sacroiliac joint injections provided substantial improvement. Her current episode of sciatica aligns with her lively routines, including caring for a new puppy, contributing to overall increased physical exertion. The prior bilateral shoulder injections have provided relief in the past, and she is in need of these to be repeated. Existing musculoskeletal interventions such as physical therapy and acupuncture have left her with notable bruising on her back. Pain Description - Onset and Duration: Intermittent, right-sided sciatica; last sharp pain occurred a few days ago. - Quality and Character: Sharp pain. - Primary Location: Right side extending to the middle of the pelvis. - Areas of Radiation: Occasionally radiates to the knee. - Exacerbating Factors: Increased physical activity (e.g., walking, dance lessons). - Relieving Factors: Ice application, prednisone, previous sacroiliac joint injections. - Functional Impact: Limited mobility, particularly in getting up from a seated position. Physical Exam - Musculoskeletal- Bilateral shoulder pain documented, proceeding with planned injections. Pain Management - Affect: The patient's mood is not discussed; continued engagement in activities suggests a manageable psychological state. - Analgesia: Previously used prednisone for sciatica relief; no specific current pain level or goal discussed. - Adverse Effects: Bruising related to acupuncture and physical therapy noted. - Activities of Daily Living: Impacted by sciatica causing difficulty with movement; actively compensating with walking and dance activities. - Aberrant Drug Related Behaviors: None reported. Procedure - Name of Procedure: Bilateral shoulder injections into the subacromial bursa. - Consent: Obtained. - Description: Each shoulder was prepped with Clerp; a 25-gauge needle was used under ultrasound guidance inplane technique. Each side received 30 mg of Kenalog mixed with 0.25% ropivacaine 3 mL. - Images saved to patients record [facility] Medical History (Updated 12/18/23 @ 14:10 by Kervin Narvaez MD) Sacroiliitis Lumbar spondylosis Trochanteric bursitis of both hips Ankylosing spondylitis Hypothyroidism Fusion of toes of right foot Surgical History (Updated 01/24/24 @ 16:23 by Felix Delgado MD) H/O repair of left rotator cuff Hx of fusion of cervical spine Hx of tonsillectomy Social History (Updated 01/07/21 @ 11:55 by Luke Chaves) Patient Tobacco Use Status: Never used Tobacco Physical Exam Vital Signs: Last Vital Signs Pulse 76 06/13/24 09:58 Resp 16 06/13/24 09:58 BP 148/82 H 06/13/24 09:58 Pulse Ox 99 06/13/24 09:58 Oxygen Delivery Method Room Air 06/13/24 09:58 BMI result Body Mass Index 25.3 Assessment & Plan Assessment & Plan (1) Lumbar radiculitis: Code(s): M54.16 - Radiculopathy, lumbar region Category: Medical (2) Calcific tendinitis of both shoulders: Code(s): M75.31 - Calcific tendinitis of right shoulder; M75.32 - Calcific tendinitis of left shoulder Category: Medical (3) Sacroiliitis: Code(s): M46.1 - Sacroiliitis, not elsewhere classified Category: Medical (4) Lumbar spondylosis: Code(s): M47.816 - Spondylosis without myelopathy or radiculopathy, lumbar region Category: Medical Plan Plan - Continue bilateral shoulder injections with current regimen. - Monitor sciatica and sacroiliac joint pain; consider epidural injections if symptoms persist. - Assess sacroiliac joint pain and seek authorization for subsequent joint injections if necessary. - Schedule follow-up care based on patient?s report of pain changes. Patient was informed and verbally consented to the use of an ambient scribe for clinic note documentation during this visit. Discussion Notes I discussed with the patient the current status of her pain management, emphasizing that the bilateral subacromial bursa injections have previously been effective and are recommended for continuation. I explained the option of an epidural steroid injection if sciatica remains bothersome and we also touched upon planning for a future sacroiliac joint injection if significant symptoms occur. The alternatives and potential relief provided by these injectable treatments were outlined, and the patient confirmed comfort with the current management strategy. Follow-up plans were set based on patient response and symptom changes. Patient Instructions - Continue with prescribed exercises and activity modifications to manage sciatica. - Utilize ice and any previously successful medications to alleviate acute flare-ups. - Monitor and report any changes in pain, especially regarding factors worsening or improving the pain. - Follow up with the office as needed, particularly if pain persists or new symptoms develop. Coding Level of Care Code Est Pt Level 4 (51255) Diagnoses Lumbar radiculitis M54.16 Calcific tendinitis of both shoulders M75.31; M75.32 Sacroiliitis M46.1 Lumbar spondylosis M47.816
--- OUTSIDE RECORDS SUMMARY | 2024-06-13 10:20 | XMS_ITS ---
Author Organization [facility] Address [address] [place] [address] Care Team Providers Care Outdoor Studies Professor Name Role Phone MAIDA GUERRERO Primary Care Provider REASON FOR VISIT Unable to view response. Encounters Encounter Location Date Provider Diagnosis [facility] [address] [facility] [address] [place] [address] 05/31/2024 MAIDA GUERRERO Plan Of Treatment Next Appt Details Provider Name:Xavier Cardona, 1 03/26/2024 09:30:00 AM, [address] [facility] [address], [place], [address], Progress Notes * HALLMANJohanna GRAFFDOB: 2 (64 yo F)Acc No.[id number]:05/31/2024 Patient:?Johanna HALLMAN :1960???Age:64 Y???Sex:Female Address:[address] [place] [address] * true * Date:? Generated for Printi page/Rahul/eTransmitting on:?06/13/2024 10:20 AM EDT
--- OUTSIDE RECORDS SUMMARY | 2024-06-13 10:20 | XMS_ITS | Clinical Summary ---
Author Organization [facility] Address [address] [place] [address] Care Team Providers Care Mortician Investigator Name Role Phone Unavailable Primary Care Provider [...]
--- OUTSIDE RECORDS SUMMARY | 2024-06-13 10:20 | XMS_ITS ---
Author Organization [facility] Address [address] [place] [address] Care Team Providers Care Concessions Manager Name Role Phone MAIDA GUERRERO Primary Care Provider REASON FOR VISIT Pravastatin side effects Encounters Encounter Location Date Provider Diagnosis [facility] [address] [address] 05/30/2024 BEYBEBA GUERRERO Mixed hyperlipidemia E78.2 and Spontaneous ecchymoses R23.3 Assessments Encounter Date Diagnosis (ICD Code) Assessment Notes Treatment Notes Treatment Clinical Notes Section Notes 05/30/2024 Mixed hyperlipidemia (ICD-10 - E78.2) 05/30/2024 Spontaneous ecchymoses (ICD-10 - R23.3) Plan Of Treatment Pending Test Test Name Order Date CBC With Differential/Platelet-[id number] Next Appt Details Provider Name:Xavier Cardona, 1 03/26/2024 09:30:00 AM, [address] [place] [address], [phone], Progress Notes * HALLMANIvy MONREALsonaliDOB: 2 (64 yo F)Acc No.[id number]:05/30/2024 Patient:?Johanna HALLMAN :1960???Age:64 Y???Sex:Female Address:[address] [place] [address] Subjective: * Chief Complaints: * ???Pravastatin side effects * Medical History:? * Surgical History:? * Hospitalization/Major Diagno stic Procedure:? * Medications:? Objective: * Vitals:? * Physical Examination:? Assessment: * Assessment: 1.?Mixed hyperlipidemia - E7 8.2???2.?Spontaneous ecchymoses - R23.3??? Plan: * Treatment: 2.?Spontaneous ecchymoses?LAB: CBC With Differential/Platelet-[id number] * Procedure Codes:? * true * Date:? Generated for Jasen abel/Rahul/eTransmitting on:?06/13/2024 10:20 AM EDT
--- OUTSIDE RECORDS SUMMARY | 2024-06-13 10:20 | XMS_ITS | Patient Health Record ---
Author Organization [facility] Address [address] [facility] [address] [place] [address] Care Team Providers Care Cloth Grader Name Role Phone MAIDA GUERRERO Primary Care Provider [phone] Allergies No Known Allergies Results Component Value Reference Range Notes Hemoglobin X2x-[id number] Reviewed date:04/17/2024 07:46:16 AM Interpretation: Performing Lab:[facility] [place], [address] [place] [address], Phone - [phone], Director - Deborah Notes/Report: Hemoglobin A1c 5.4 4.8-5.6 % . Prediabetes: 5.7 - 6.4 Diabetes: >6.4 Glycemic control for adults with diabetes: <7.0 TSH+Free [id number] Reviewed date:04/17/2024 07:46:11 AM Interpretation: Performing Lab:[facility], [address] [place] [address], Phone - [phone], Director - Deborah Notes/Report: TSH 1.950 0.450-4.500 uIU/mL T4,Free(Direct) 1.39 0.82-1.77 ng/dL TSH-[id number] Reviewed date:01/17/2024 07:41:40 AM Interpretation: Performing Lab:[facility], [address] [place] [address], [place], Phone - [phone], Director - Deborah Notes/Report: TSH 0.535 0.450-4.500 uIU/mL CBC, Platelet, No Differenti al-[id number] Reviewed date:01/17/2024 07:44:16 AM Interpretation: Performing Lab:[facility], [address] [place] [address], [place], Phone - [phone], Director - Chelseay Notes/Report: WBC 3.2 3.4-10.8 x10E3/uL RBC 4.19 3.77-5.28 x10E6/uL Hemoglobin 13.3 11.1-15.9 g/dL Hematocrit 41.3 34.0-46.6 % MCV 99 79-97 fL MCH 31.7 26.6-33.0 pg MCHC 32.2 31.5-35.7 g/dL RDW 13.0 11.7-15.4 % Platelets 254 150-450 x10E3/uL Lipid Panel-[id number] Reviewed date:01/17/2024 07:44:14 AM Interpretation: Performing Lab:[facility] [place], [address] [facility], [place], Phone - [phone], Director - Deborah Notes/Report: Cholesterol, Total 195 100-199 mg/dL Triglycerides 48 0-149 mg/dL HDL Cholesterol 94 >39 mg/dL VLDL Cholesterol Ferd 9 5-40 mg/dL LDL Chol Calc ([facility]) 92 0-99 mg/dL Comp. Metabolic Panel (14)-3 Reviewed date:01/17/2024 07:44:09 AM Interpretation: Performing Lab:[facility] [place], [address] [facility], [place], Phone - [phone], Director - Deborah Notes/Report: Glucose 100 70-99 mg/dL BUN 15 [...] 0-40 IU/L ALT (SGPT) 29 0-32 IU/L Reason For Referral Reason Acne-Hill side derm Referral Organization [facility] ter Referring Provider First Name MAIDA Referring Provider Last Name [facility] Referring Provider Speciality Internal M edicine Referred Provider Specialty Dermatology Referral Priority Routine Reason left shoulder pain- [facility] [place] Diagnosis 1 Annual physical exam (Z00.00) Referral Organization [facility] ter Referring Provider First Name MAIDA Referring Provider Last Name [facility] Referring Provider Speciality Internal M edicine Referred Provider Specialty Physical The rapist Referral Priority Routine Medications Medication SIG (Take, Route, Frequency, Duration) Notes Start Date End Date Status Rosuvastatin Calcium 20 MG 1 tablet Oral ly Once a day Active Quviviq 25 MG 1 tablet within 30 minutes of bedtime Orally Once a day prn Active Vitamin D (Cholecalciferol) 25 MCG (1000 UT) 1 tablet Orally Once a day for 90 days 04/14/2024 Active Fosamax 70 MG 1 tablet 30 minutes before the first food, beverage or medicine of the day with plain water Orally weekly for 90 days 04/14/2024 Active Meloxicam 15 MG TAKE 1 TABLET ONCE D AILY for 90 Active Levothyroxine Sodium 75 MCG 1 tablet in the morning on an empty stomach Orally Once a day for 90 days Active Rinvoq 15 MG 1 tablet Orally Once a day Active Pravastatin Sodium 10 MG 1 tablet Orally Once a day for 30 days Active Immunizations Vaccine Route Administration Date Status [...] Problem Status W/U Status Risk Notes Problem Hypothyroidism, unspecified (E03.9) Active confirmed Problem Mixed hyperlipidemia (099061528) Mixed hyperlipidemia (E78.2) Active confirmed Problem Ankylosing spondylitis (2259722) Ankylosing spondylitis of cervicothoracic region (M45.3) Active confirmed Vital Signs Heart Rate 77 /min 01/23/2024 Temperature 96.9 degrees Fahrenheit 01/23/2024 Blood pressure diastolic 74 mm Hg 01/23/2024 Oximetry 96 % 01/23/2024 Height 5'6.5 in 01/23/2024 Blood pressure systolic 114 mm Hg 01/23/2024 Weight 155.3 lbs 01/23/2024 BMI 24.69 kg/m2 01/23/2024 Encounters Encounter Location Date Provider Diagnosis [address] [place] [address] 01/23/2024 MAIDA GUERRERO Hypothyroidism, unspecified E03.9 ; Annual physical exam Z00.00 ; Mixed hyperlipidemia E78.2 ; Ankylosing spondylitis of cervicothoracic region M45.3 ; Pain in left shoulder M25.512 ; Impaired fasting glucose R73.01 and Acne, unspecified L70.[address] [place] [address] 07/05/[address] [place] [address] 01/24/2024 MAIDA GUERRERO Encounter for screen ing for osteoporosis Z13.[address] [place] [address] 01/25/[address] [place] [address] 02/09/[address] [place] [address] 02/14/[address] [place] [address] 02/16/[address] [place] [address] 02/19/[address] [place] [address] 03/26/2024 [facility] [address] [facility] [address] [place] [address] 03/29/2024 [facility] [address] [facility] [address] [place] [address] 04/01/2024 [facility] [address] [facility] [address] [place] [address] 04/01/2024 [facility] [address] [facility] [address] [place] [address] 04/06/2024 [facility] [address] [facility] [address] [place] [address] 04/09/2024 [facility] [address] [facility] [address] [place] [address] 04/11/2024 [facility] [address] [facility] [address] [place] [address] 04/12/2024 [facility] [address] [facility] [address] [place] [address] 04/16/2024 [facility] [address] [facility] [address] [place] [address] 04/17/2024 [facility] [address] [facility] [address] [place] [address] 05/30/2024 BEY GUL Mixed hyperlipidemia E78.2 and Spontaneous ecchymoses R23.3 [facility] [address] [facility] [address] [place] [address] 05/31/2024 [facility] [address] [facility] [address] [place] [address] 06/01/2024 BEY GU Ankylosing spondylit is of cervicothoracic region M45.3 Assessments Encounter Date Diagnosis (ICD Code) Assessment [...] follows up with Dr. Jana Schwab at [facility]. Left shoulder joint pain. Most likely shoulder impingement/adhes salina capsulitis. Will do x-ray of the left shoulder joint and referral to physical therapy. Acne. She needs a referral to see a different fibre technologist. She wants to be on Accutane and they want her to do tests every time she goes. She is clearly in menopause and very low risk for . Osteoarthritis and she follows up with Charlotte Sheppard MD for PRP injections Eye screening. She sees her Dr Cooley regularly. Skin screening. She sees her fibre technologist regularly. Breast cancer screening. She had her mammogram in 2022. She follows up with her film maker Dr. Federica Barahona for breast and pelvic [...] follows up with Dr. Jana Schwab at [facility]. Left shoulder joint pain. Most likely shoulder impingement/adhes salina capsulitis. Will do x-ray of the left shoulder joint and referral to physical therapy. Acne. She needs a referral to see a different fibre technologist. She wants to be on Accutane and they want her to do tests every time she goes. She is clearly in menopause and very low risk for . Osteoarthritis and she follows up with Charlotte Sheppard MD for PRP injections Eye screening. She sees her Dr Cooley regularly. Skin screening. She sees her fibre technologist regularly. Breast cancer screening. She had her mammogram in 2022. She follows up with her film maker Dr. Federica Barahona for breast and pelvic exams. Immunizations. She is up-to-date on her COVID, influenza, shingles and TDAP vaccinations. Screening blood work before next appointment. She is full code and her is her healthcare proxy. General health concerns discussed with patient. 01/24/2024 Encounter for screening for osteoporosis (ICD-10 - Z13.820) 05/30/2024 Mixed hyperlipidemia (ICD-10 - E78.2) 06/01/2024 Ankylosing spondylitis of cervicothoracic region (ICD-10 - M45.3) 05/30/2024 Spontaneous ecchymoses (ICD-10 - R23.3) 01/23/2024 Mixed hyperlipidemia (ICD-10 - E78.2) Mrs [...] follows up with Dr. Jana Schwab at [facility]. Left shoulder joint pain. Most likely shoulder impingement/adhes salina capsulitis. Will do x-ray of the left shoulder joint and referral to physical therapy. Acne. She needs a referral to see a different fibre technologist. She wants to be on Accutane and they want her to do tests every time she goes. She is clearly in menopause and very low risk for . Osteoarthritis and she follows up with Charlotte Sheppard MD for PRP injections Eye screening. She sees her Dr Cooley regularly. Skin screening. She sees her fibre technologist regularly. Breast cancer screening. She had her mammogram in 2022. She follows up with her film maker Dr. Federica Barahona for breast and pelvic [...] follows up with Dr. Jana Schwab at [facility]. Left shoulder joint pain. Most likely shoulder impingement/adhes salina capsulitis. Will do x-ray of the left shoulder joint and referral to physical therapy. Acne. She needs a referral to see a different fibre technologist. She wants to be on Accutane and they want her to do tests every time she goes. She is clearly in menopause and very low risk for . Osteoarthritis and she follows up with Charlotte Sheppard MD for PRP injections Eye screening. She sees her Dr Cooley regularly. Skin screening. She sees her fibre technologist regularly. Breast cancer screening. She had her mammogram in 2022. She follows up with her film maker Dr. Federica Barahona for breast and pelvic [...] follows up with Dr. Jana Schwab at [facility]. Left shoulder joint pain. Most likely shoulder impingement/adhes salina capsulitis. Will do x-ray of the left shoulder joint and referral to physical therapy. Acne. She needs a referral to see a different fibre technologist. She wants to be on Accutane and they want her to do tests every time she goes. She is clearly in menopause and very low risk for . Osteoarthritis and she follows up with Charlotte Sheppard MD for PRP injections Eye screening. She sees her Dr Cooley regularly. Skin screening. She sees her fibre technologist regularly. Breast cancer screening. She had her mammogram in 2022. She follows up with her film maker Dr. Federica Barahona for breast and pelvic [...] follows up with Dr. Jana Schwab at [facility]. Left shoulder joint pain. Most likely shoulder impingement/adhes salina capsulitis. Will do x-ray of the left shoulder joint and referral to physical therapy. Acne. She needs a referral to see a different fibre technologist. She wants to be on Accutane and they want her to do tests every time she goes. She is clearly in menopause and very low risk for . Osteoarthritis and she follows up with Charlotte Sheppard MD for PRP injections Eye screening. She sees her Dr Cooley regularly. Skin screening. She sees her fibre technologist regularly. Breast cancer screening. She had her mammogram in 2022. She follows up with her film maker Dr. Federica Barahona for breast and pelvic [...] follows up with Dr. Jana Schwab at [facility]. Left shoulder joint pain. Most likely shoulder impingement/adhes aslina capsulitis. Will do x-ray of the left shoulder joint and referral to physical therapy. Acne. She needs a referral to see a different fibre technologist. She wants to be on Accutane and they want her to do tests every time she goes. She is clearly in menopause and very low risk for . Osteoarthritis and she follows up with Charlotte Sheppard MD for PRP injections Eye screening. She sees her Dr Cooley regularly. Skin screening. She sees her fibre technologist regularly. Breast cancer screening. She had her mammogram in 2022. She follows up with her film maker Dr. Federica Barahona for breast and pelvic exams. Immunizations. She is up-to-date on her COVID, influenza, shingles and TDAP vaccinations. Screening blood work before next appointment. She is full code and her is her healthcare proxy. General health concerns discussed with patient. Plan Of Treatment Pending Test Test Name Order Date Bone Density 01/23/2024 Bone Density 01/24/2024 Xray: Shoulder Left-Min 2 Vws 01/23/2024 Next Appt Details Provider Name:Xavier Cardona, 1 03/26/2024 09:30:00 AM, [address] [place] [address], [phone], Insurance Providers Payer Name Payer Address Payer Phone Subscriber Number Group Number Insured Name Patient Relationship to Insured Coverage Start Date Coverage End Date [facility] [address] [place] [address] [id number] Johanna Hallman Self - patient is the insured Medical (General) History Medical History History ICD Code hyperlipidemia hypothyroidism ankylosing spondylitis see Dr. Hari hutchinson Difficulty falling asleep and she follow s up with Dr. Jana Schwab Osteoarthritis and she follows up with Bernarda Ceron MD Surgical History Surgery Date(Month/Year) cervical spine surgery
--- OUTSIDE RECORDS SUMMARY | 2024-06-13 10:20 | XMS_ITS | Clinical Summary ---
Author Organization [facility] Address [address] [place] [address] Care Team Providers Care Upholstery Estimator Name Role Phone Zohreh Borrero MD Primary Care Provider Unavailtomas e Zohreh Borrero MD Unavailable Unavailable Active Problems Problem Noted Date Diagnosed Date Acne 02/16/2020 ADHD 02/16/2020 Depression 02/16/2020 Hypothyroidism 02/16/2020 Ankylosing polyarthritis 02/16/2020 Overview (03/11/2023): Impression - 16Feb2020: She sees the Rheum, Dr Foster. Impression - 16Feb2020: She sees the Cotton Weigher, Dr Foster regularly. Immunizations Name Administration Dates Next Due Influenza,seasonal,trivalent,preservative (FLUZO NE MDV) 11/20/2019 Family History Medical History Relation Name Comments Other Other disease : Famil y History;mother 96 htn,[place] breast cancer Father 65 [place] H[place] hypothyroid Mgm 63 ? Mgf Relation [...] to follow to Patient. Testing Performed at: [facility], [address] [place] [address], , Angle Furnaceman: Ly Brennan MD CL#[id number] 12:52PM by Zohreh Borrero: ??Labs look good, [...] to Patient. FASTING: YES Testing Performed at: [facility], [address], [place] [address], , Angle Furnaceman: Ly Brennan MD CL#[id number] 12:52PM by Zohreh Borrero: ??Labs look good, [...] Recently Relevant to Health Maintenance Care Teams Upholstery Estimator Relationship Specialty Start Date End Date Zohreh Borrero MD PCP - General 09/11/22 Zohreh Borrero MD PCP - Backup PCP Family Medicine 03/08/23
--- OUTSIDE RECORDS SUMMARY | 2024-06-13 10:20 | XMS_ITS ---
Author Organization [facility] Address [address] [facility] [address] [place] [address] Care Team Providers Care Rn Surgical Name Role Phone JESSEMaheshMAIDA Primary Care Provider REASON FOR VISIT RE:Pravastatin side effects Encounters Encounter Location Date Provider Diagnosis [facility] [address] [address] [place] [address] 06/01/2024 MAIDA JESSEMahesh Ankylosing spondylit is of cervicothoracic region M45.3 Assessments Encounter Date Diagnosis (ICD Code) Assessment Notes Treatment Notes Treatment Clinical Notes Section Notes 06/01/2024 Ankylosing spondylitis of cervicothoracic region (ICD-10 - M45.3) Plan Of Treatment Pending Test Test Name Order Date CBC with Diff, Platelet, [id number] 05/07 Next Appt Details Provider Name:Xavier Cardona, 1 03/26/2024 09:30:00 AM, [address] [place] [address], [place], [address], Progress Notes * HALLMANJohanna MONREALDOB: 2 (64 yo F)Acc No.[id number]:06/01/2024 Patient:?Johanna HALLMAN :1960???Age:64 Y???Sex:Female Address:[address] [place] [id number] Subjective: * Chief Complaints: * ???RE:Pravastatin side effec ts * Medical History:? * Surgical History:? * Hospitalization/Major Diagno stic Procedure:? * Medications:? Objective: * Vitals:? * Physical Examination:? Assessment: * Assessment: 1.?Ankylosing spondylitis of cervicothoracic region - M45.3??? Plan: * Treatment: * Procedure Codes:? * true * Date:? Generated for Jasen abel/Rahul/Hedy on:?06/13/2024 10:20 AM EDT
== END 2024-06-13 10:16 | disposition home or self-care (01) ==
PROVIDERS: PCP Hospitalist; Visit Provider Internal Medicine
DX: M54.16 Radiculopathy, lumbar region (principal); M46.1 Sacroiliitis, not elsewhere classified; M75.31 Calcific tendinitis of right shoulder; M75.32 Calcific tendinitis of left shoulder; M47.816 Spondylosis without myelopathy or radiculopathy, lumbar region
CPT/HCPCS: 20611; 99214

== ENCOUNTER → 2024-06-13 09:56 | Outpatient (BNVA) | payer BC, SELFPAY | PROVIDERS: PCP Hospitalist; Visit Provider Internal Medicine | DX: M54.16 Radiculopathy, lumbar region (principal); M75.31 Calcific tendinitis of right shoulder; M75.32 Calcific tendinitis of left shoulder; M46.1 Sacroiliitis, not elsewhere classified; M47.816 Spondylosis without myelopathy or radiculopathy, lumbar region | CPT/HCPCS: 20611; J2795; J3301 ==

== ENCOUNTER 2024-07-07 10:56 | Outpatient (AMB) | payer BC, SELFPAY ==
[2024-07-07 11:22] VITALS: BP 141/82; PULSE 79; RESP 16; O2SAT 97; BMI 25.3
--- NOTE | 2024-07-07 11:22 | A.OFFVIS_ITS ---
Vital Signs 07/07/24 11:22 Height 5 ft 6 in Weight 157 lb BMI 25.3 BP 141/82 H Blood Pressure Location Rt brachial Position Sitting Respiration 16 Pulse 79 Pulse Source Pulse Oximeter Pulse Oximetry (%) 97 Oxygen Delivery Method Room Air Intake Visit Reasons: Ulises hip/bursa injections Hr Operations Advisor Required: No Corporate Associate Attorney: Corporate Associate Attorney Present Accompanied by: Jonathon Lyons Allergies No Known Allergies Allergy (Verified 07/07/24 11:24) Medication List - Last Reconciled 07/07/24 by Jacqueline Duffy LPN levothyroxine 75 mcg PO DAILY lidocaine 5% 1 patch topical DAILY meloxicam 15 mg PO DAILY upadacitinib ER (Rinvoq) 15 mg PO DAILY zolpidem mg PO HPI HPI Ulises hip/bursa injections: Details: History of Present Illness The patient is a 64-year-old female presenting with bilateral greater trochanteric bursitis for management via injections. Her symptoms were initially managed with a set of injections four weeks ago. The patient's bursitis primarily affects her ability to engage in physical tasks, including gardening and caring for a puppy, leading to exacerbated symptoms. She follows a consistent schedule of injections typically every four to five weeks depending on her refill requirements, highlighting the chronic and recurrent nature of her condition. Pain Description - Pain is located bilaterally over the trochanteric bursa. - Pain onset with physical activity, such as gardening and running after a pet. - Pain relief achieved with regular corticosteroid injections. - Injections are scheduled approximately every four to five weeks. Physical Exam - Musculoskeletal- While not directly observed in this conversation, the patient's past medical procedure indicates the involvement of bilateral trochanteric bursa. Results Pain Management - Affect: Discussed her mood lightly in relation to everyday activities, indic ating a manageable impact on her psychological wellbeing. - Analgesia: Injections with Kenalog and temporary relief reported; primary goal is improved physical function. - Adverse Effects: No adverse effects from Kenalog injections reported. - Activities of Daily Living: Limited by physical tasks, improvement noted post- injection. - Aberrant Drug Related Behaviors: No aberrant behaviors reported or discussed. Procedure - Bilateral greater trochanteric bursa injections. - Informed consent was obtained. - Patient positioned first on the left side; 30 mg of Kenalog with 3 mL ropivacaine 0.25% injected into the right trochanteric bursa under ultrasound guidance. - Patient then repositioned on the right side; procedure was repeated on the left side. - Patient tolerated procedure well with no blood loss. - US images saved. [facility] Medical History (Updated 12/18/23 @ 14:10 by Kervin Narvaez MD) Sacroiliitis Lumbar spondylosis Trochanteric bursitis of both hips Ankylosing spondylitis Hypothyroidism Fusion of toes of right foot Surgical History (Updated 01/24/24 @ 16:23 by Felix Delgado MD) H/O repair of left rotator cuff Hx of fusion of cervical spine Hx of tonsillectomy Social History (Updated 01/07/21 @ 11:55 by Luke Chaves) Patient Tobacco Use Status: Never used Tobacco Physical Exam Vital Signs: Last Vital Signs Pulse 79 07/07/24 11:22 Resp 16 07/07/24 11:22 BP 141/82 H 07/07/24 11:22 Pulse Ox 97 07/07/24 11:22 Oxygen Delivery Method Room Air 07/07/24 11:22 BMI result Body Mass Index 25.3 Assessment & Plan Assessment & Plan (1) Trochanteric bursitis of both hips: Code(s): M70.61 - Trochanteric bursitis, right hip; M70.62 - Trochanteric bursitis, left hip Category: Medical Plan Plan - Schedule repeat bilateral trochanteric bursa injections prn. - Monitor efficacy of injections and any potential adverse effects. - Advise patient to continue activities within comfort levels. Patient was informed and verbally consented to the use of an ambient scribe for clinic note documentation during this visit. Discussion Notes We discussed the plan for managing her bilateral trochanteric bursitis with ongoing corticosteroid injections. We reviewed the efficacy of the injections, which the patient reported were beneficial, and agreed upon scheduling them approximately every four to five weeks as needed based on pain relief duration and her refill schedule. The potential risks, such as rare adverse effects, were noted, and the patient was agreeable to the plan. We discussed the necessity of monitoring her response to the injections, ensuring continued benefit without complications. The patient agreed to return for follow-up evaluations and further injections as required. Patient Instructions - Return for regular injections as scheduled every four to five weeks. - Monitor for any side effects or changes in pain levels. - Stay active but avoid activities that significantly increase pain. - Contact the office if pain worsens or develops new symptoms. Coding Level of Care Code Procedure Only Diagnoses Trochanteric bursitis of both hips M70.61; M70.62
--- OUTSIDE RECORDS SUMMARY | 2024-07-07 12:11 | XMS_ITS ---
Author Name [facility] Organization Unknown Encounters Encounter Type Encounter Reason Primary Diagnosis Location Date [facility] 04/03/2022 [facility] 02[facility]27/2022 [facility] 02/24/2022 [facility] 12/16/2021 Care Team Organization Name Specialty Phone Email Start Date End Da te [facility] 12/19/2021 [facility] 12/16/2021 12/16/2021
== END 2024-07-07 11:34 | disposition home or self-care (01) ==
LOC: HO.PMC 10:59
PROVIDERS: PCP Hospitalist; Visit Provider Internal Medicine
DX: M70.61 Trochanteric bursitis, right hip (principal); M70.62 Trochanteric bursitis, left hip
CPT/HCPCS: 20611

== ENCOUNTER → 2024-07-07 10:56 | Outpatient (BNVA) | payer BC, SELFPAY | PROVIDERS: PCP Hospitalist; Visit Provider Internal Medicine | DX: M70.61 Trochanteric bursitis, right hip (principal); M70.62 Trochanteric bursitis, left hip | CPT/HCPCS: 20611 ==

== ENCOUNTER 2024-10-08 09:29 | Outpatient (AMB) | payer BC, SELFPAY ==
--- NOTE | 2024-10-08 09:36 | MHC.OFFVIS ---
Vital Signs 10/08/24 09:39 Height 5 ft 6 in Weight 141 lb BMI 22.8 BP 132/71 Blood Pressure Location Rt brachial Position Sitting Respiration 16 Pulse 76 Pulse Source Pulse Oximeter Pulse Oximetry (%) 100 Oxygen Delivery Method Room Air Intake Visit Reasons: Ulises Lumbar TPI Rn Sexual Assault Required: No Medical Insurance Verifier: Medical Insurance Verifier Present Accompanied by: Jonathon Lyons Allergies No Known Allergies Allergy (Verified 10/08/24 09:40) Medication List - Last Reconciled 10/08/24 by Jacqueline Duffy LPN levothyroxine 75 mcg PO DAILY lidocaine 5% 1 patch topical DAILY meloxicam 15 mg PO DAILY upadacitinib ER (Rinvoq) 15 mg PO DAILY zolpidem mg PO HPI HPI Ulises Lumbar TPI: Details: History of Present Illness The patient is a 64-year-old female presenting with chronic pain management concerns. The patient reports chronic pain in the shoulders and hips, which has been persistent and affects her daily activities, including her ability to walk and perform tango. The pain in the shoulders and hips is described as being over the bursae and tendons, suggesting a possible bursitis or tendinopathy component. The patient has previously undergone platelet-rich plasma (PRP) therapy for her shoulders and hips, which provided significant relief. She is considering additional PRP treatments targeting the tendons over the bursae in these areas. The patient also has a history of osteoarthritis, which may be contributing to her symptoms, particularly in the back. She has experienced Heberden's nodes, indicating osteoarthritic changes. The patient has successfully lost weight, reducing from 180 pounds to 141 pounds, which may have positively impacted her joint pain. Pain Description - Onset: Chronic pain in shoulders and hips - Quality: Pain over the bursae and tendons - Location: Shoulders and hips - Exacerbating factors: Activities such as walking and tango - Relieving factors: Previous PRP therapy provided relief Physical Exam - TTP overlying lumbar triggers Results Pain Management - Affect: Pain impacts daily activities, including walking and tango. - Analgesia: Previous PRP therapy provided significant relief. - Activities of Daily Living: Pain affects ability to perform tango and walk. [facility] Medical History (Updated 12/18/23 @ 14:10 by Kervin Narvaez MD) Sacroiliitis Lumbar spondylosis Trochanteric bursitis of both hips Ankylosing spondylitis Hypothyroidism Fusion of toes of right foot Surgical History (Updated 01/24/24 @ 16:23 by Felix Delgado MD) H/O repair of left rotator cuff Hx of fusion of cervical spine Hx of tonsillectomy Social History (Updated 01/07/21 @ 11:55 by Luke Chaves) Patient Tobacco Use Status: Never used Tobacco Physical Exam Vital Signs: Last Vital Signs Pulse 76 10/08/24 09:39 Resp 16 10/08/24 09:39 BP 132/71 10/08/24 09:39 Pulse Ox 100 10/08/24 09:39 Oxygen Delivery Method Room Air 10/08/24 09:39 BMI result Body Mass Index 22.8 Office Procedures Injection Trigger Point Multi Pre-procedure diagnosis: Myofascial pain Post-procedure diagnosis: Myofascial pain Site and number of trigger points: Rhomboid Lumbar paraspinal muscles Multifidus, lat dorsi Solution: Total volume administered (9mL ropivacaine 0.25% and 40 mg of kenalog). The procedure, its benefits, and its risks were explained to the patient and all questions were answered. Prior to the start of the procedure, a ?time out? was performed to confirm correct patient, procedure, and laterality. Trigger points were identified by ultrasound guidance. The skin was cleaned with Chloraprep. A 80mm 21 guage echostim needle was used and advanced under ultrasound guidance to the identified trigger areas. Approximately 0.5 ml to 1 ml of injectate was delivered to the trigger point. This process was repeated at each trigger point site. The patient tolerated the procedure well. Post-procedure, breath sounds were equal at both sides of the chest. The patient tolerated the procedure well, without complication. The patient denied any numbness, paresthesias, or weakness. Post-procedure vitals were recorded as part of the nursing discharge note in electronic medical record. Following a period of observation, the patient was discharged in stable condition with written discharge instructions. An ultrasound image of the injection was taken and stored in the permanent record. Trigger Point Multiple: 23884- Trigger point injection =/>3 Assessment & Plan Assessment & Plan (1) Myofascial pain: Code(s): M79.18 - Myalgia, other site Category: Medical (2) Trochanteric bursitis of both hips: Code(s): M70.61 - Trochanteric bursitis, right hip; M70.62 - Trochanteric bursitis, left hip Category: Medical (3) Calcific tendinitis of both shoulders: Code(s): M75.31 - Calcific tendinitis of right shoulder; M75.32 - Calcific tendinitis of left shoulder Category: Medical Plan Plan Patient was informed and verbally consented to the use of an ambient scribe for clinic note documentation during this visit. 1. Hip Osteoarthritis - Plan: Consider additional PRP therapy for symptomatic relief. 2. Subacromial bursitis/rotator cuff tendonitis - Plan: Schedule PRP therapy for the shoulders after the hips. 3. Back pain Pain - Repeat trigger point injections as needed Discussion Notes We discussed the use of platelet-rich plasma (PRP) therapy for managing the patient's chronic shoulder and hip pain. The patient expressed interest in targeting the tendons over the bursae with PRP, and we agreed to schedule two separate sessions, starting with the hips due to increased severity. We also reviewed the potential benefits of PRP in alleviating symptoms associated with osteoarthritis. Patient Instructions - Schedule PRP therapy sessions as discussed, starting with the hips. - Monitor pain levels and report any changes or concerns. - Maintain current weight management strategies to support joint health. Coding Level of Care Code Est Pt Level 4 (67816) Diagnoses Myofascial pain M79.18 Trochanteric bursitis of both hips M70.61; M70.62 Calcific tendinitis of both shoulders M75.31; M75.32 CPT Codes Details - Trigger Point Multiple: 06742- Trigger point injection =/>3 ([id number])
[2024-10-08 09:39] VITALS: BP 132/71; PULSE 76; RESP 16; O2SAT 100; BMI 22.8
--- OUTSIDE RECORDS SUMMARY | 2024-10-08 10:17 | XMS_ITS | Clinical Summary ---
Author Organization [facility] Address [address] [place] [address] Care Team Providers Care Spiral Weaver Name Role Phone Unavailable Primary Care Provider [...] 61 04/03/2022 7:23 AM EST Temperature 36.8 C (98.2 F) 04/03/2022 7:23 AM EST Respiratory Rate 14 04/03/2022 7:23 AM EST [...] or Tdap) 10/06/2020 011 Influenza Vaccine (#1) 2024 RSV Adult > 60+ Yrs or Pregn [...]
--- OUTSIDE RECORDS SUMMARY | 2024-10-08 10:17 | XMS_ITS | Clinical Summary ---
Author Organization [facility] Address [address] [place] [address] Care Team Providers Care Equity Sales Assistant Name Role Phone Zohreh Borrero MD Primary Care Provider Unavailabl e Zohreh Borrero MD Unavailable Unavailable Active Problems Problem Noted Date Diagnosed Date Acne 02/16/2020 ADHD 02/16/2020 Depression 02/16/2020 Hypothyroidism 02/16/2020 Ankylosing polyarthritis 02/16/2020 Overview (03/11/2023): Impression - 16Feb2020: She sees the Rheum, Dr Foster. Impression - 16Feb2020: She sees the Snow Plow Operator, Dr Foster regularly. Immunizations Immunization Administration Dates Next Due Influenza,seasonal,trivalent,preservative (FLUZO NE MDV) 11/20/2019 Family History Medical History Relation Name Comments Other Other disease : Famil y History;mother 96 htn,[place] breast cancer Father 65 [place] Htn hypothyroid Mgm 63 ? Mgf Relation [...] 69 02/16/2020 9:46 AM EST Temperature 36.4 C (97.5 F) 02/16/2020 9:46 AM EST Respiratory Rate 16 02/16/2020 9:46 AM EST [...] Colon Cancer Screening 10/18/2021 10/19/2011 COVID-19 Vaccine (1 - 2023-2 5 season) 2024 Influenza (#1) 2024 11/20/2019 RSV (1 - 1-dose 75+ series) 02/22/2036 Colonoscopy Discontinued 10/19/2011, 10/19/2011 Bone Density Discontinued 01/08/2020 Hepatitis C Screening Completed 02/16/2020 LDL Cholesterol Discontinued 02/16/2020 Physical Discontinued 02/16/2020 HPV Vaccine (No Doses Required) Completed Hep A Aged Out No longer eligi [...] to follow to Patient. Testing Performed at: [facility], [address] [place] [address], , Prepared Foods Service Team Member: Ly Brennan MD CL#[id number] 12:52PM by Zohreh Borrero: Labs look good, her cholesterol is too high, [...] to Patient. FASTING: YES Testing Performed at: [facility], [address] [place] [id number], , Prepared Foods Service Team Member: Ly Brennan MD #[id number] 12:52PM by Zohreh Borrero: Labs look good, her cholesterol is too high, [...] Recently Relevant to Health Maintenance Care Teams Equity Sales Assistant Relationship Specialty Start Date End Date Zohreh Borrero MD PCP - General 09/11/22 Zohreh Borrero MD PCP - Backup PCP Family Medicine 03/08/23
--- OUTSIDE RECORDS SUMMARY | 2024-10-08 10:17 | XMS_ITS | Clinical Summary ---
Author Organization [facility] Address [address] [place] [address] Care Team Providers Care Rn Testing Name Role Phone Unavailable Primary Care Provider [...] Date Comments Hypothyroidism DX:Hypothyroidis m Ankylosing spondylitis ([facility] V24, [facility] V28) DX:Ankylosing spondylitis (HCC);COMMENT:per pt Hyperlipidemia DX:Hyperlipidemi a [...] 2011 Zoster Vaccines (1 of 2) 2011 HIV Screening 01/02/2022 Hepatitis C Screening 01/02/2022 Social Influencers of Health Screening 01/02/2022 COVID-19 Vaccine ( - 2023-2 5 season) 2023 Depression Screening 02/06/2024 Influenza Vaccine (#1) 2024 Colorectal Cancer Screening: Colonoscopy 12/08/2030 12/08/2020 RSV Immunization Adult Patie nts (1 - 1-dose 75+ series) 02/22/2036 HIB [...] age to complete this topic Meningococcal B Vaccine Aged Out No l onger eligible based on patient's age to complete this topic RSV Immunization Patients Un kendrick 20 months Aged Out No longer eligible b ased on patient's age to complete this topic Varicella Vaccines Aged Out No longer eligible based on patient's age to complete this topic Procedures Procedure Name Priority Date/Time Associated Diagnosis Comments EXTERNAL COLONOSCOPY REPORT Routine 12/08/2020 9:56 AM EDT from Last 3 Months or Most Recently Relevant to Health Maintenance Results * External Colonoscopy Report (12/08/2020 9:56 AM EDT) Anatomical Region Laterality Modality Endoscopy us Historical Provider GI~PROCEDURE ORDERABLES F inal Result from Last 3 Months or Most Recently Relevant to Health Maintenance
--- OUTSIDE RECORDS SUMMARY | 2024-10-08 10:17 | XMS_ITS | Patient Health Record ---
Author Organization [facility] Address [address] [place] [address] Care Team Providers Care Filterer Name Role Phone YOLANDA BEY Primary Care Provider Allergies No Known Allergies Results Component Value Reference Range Notes Hemoglobin [id number] Reviewed date:04/17/2024 07:46:16 AM Interpretation: Performing Lab:[facility], [address] [facility], Phone - [phone], Director - MDJodry Notes/Report: Hemoglobin A1c 5.4 4.8-5.6 % Diabetes: >6.4 Glycemic control for adults with diabetes: <7.0 . Prediabetes: 5.7 - 6.4 TSH+Free [id number] Reviewed date:04/17/2024 07:46:11 AM Interpretation: Performing Lab:[facility], [address] [facility], Phone - [phone], Director - MDJodry Notes/Report: TSH 1.950 0.450-4.500 uIU/mL T4,Free(Direct) 1.39 0.82-1.77 ng/dL Comp. Metabolic Panel (14)-[id number] Reviewed date:01/17/2024 07:44:09 AM Interpretation: Performing Lab:[facility], [address] [facility], Phone - [phone], Director - MDJodry Notes/Report: Glucose 100 70-99 [...] IU/L ALT (SGPT) 29 0-32 IU/L Lipid Panel-[id number] Reviewed date:01/17/2024 07:44:14 AM Interpretation: Performing Lab:[facility], [address] [place] [address], [place], Phone - [phone], Director - MDJodry Notes/Report: Cholesterol, Total 195 100-199 mg/dL Triglycerides 48 0-149 mg/dL HDL Cholesterol 94 >39 mg/dL VLDL Cholesterol Fred 9 5-40 mg/dL LDL Chol Calc (NIH) 92 0-99 mg/dL CBC, Platelet, No Differenti al-[id number] Reviewed date:01/17/2024 07:44:16 AM Interpretation: Performing Lab:[facility], [address] [facility], [place], Phone - [phone], Director - MDJodry Notes/Report: WBC 3.2 3.4-10.8 x10E3/uL RBC 4.19 3.77-5.28 x10E6/uL Hemoglobin 13.3 11.1-15.9 g/dL Hematocrit 41.3 34.0-46.6 % MCV 99 79-97 fL MCH 31.7 26.6-33.0 pg MCHC 32.2 31.5-35.7 g/dL RDW 13.0 11.7-15.4 % Platelets 254 150-450 x10E3/uL [id number] Reviewed date:01/17/2024 07:41:40 AM Interpretation: Performing Lab:[facility] [address] [facility], [place], Phone - [phone], Director - MDJodry Notes/Report: TSH 0.535 0.450-4.500 uIU/mL Reason For Referral Reason Acne-Hill side derm Referral Organization [facility] Referring Provider First Name MAIDA Referring Provider Last Name [facility] Referring Provider Speciality Internal M edicine Referred Provider Specialty Dermatology Referral Priority Routine Reason left shoulder pain- [facility] [place] Diagnosis 1 Annual physical exam (Z00.00) Referral Organization [facility] ter Referring Provider First Name MAIDA Referring Provider Last Name [facility] Referring Provider Speciality Internal M edicine Referred Provider Specialty Physical The rapist Referral Priority Routine Medications Medication SIG (Take, Route, Frequency, Duration) Notes Start Date End Date Status Rosuvastatin Calcium 20 MG 1 tablet Oral ly Once a day Active Quviviq 25 MG 1 tablet within 30 minutes of bedtime Orally Once a day prn Active Nexletol 180 MG 1 tablet Orally Once a day; Duration: 30 days 08/19/2024 Active Vitamin D (Cholecalciferol) 25 MCG (1000 UT) 1 tablet Orally Once a day; Duration: 90 days 04/14/2024 Active Fosamax 70 MG 1 tablet 30 minutes before the first food, beverage or medicine of the day with plain water Orally weekly; Duration: 90 days 04/14/2024 Active Meloxicam 15 MG TAKE 1 TABLET ONCE DAILY; Duration: 90 Active Synthroid 75 MCG TAKE 1 TABLET ONCE D AILY INTHE MORNING ON AN EMPTY STOMACH; Duration: 90 Active Levothyroxine Sodium 75 MCG 1 tablet in the morning on an empty stomach Orally Once a day; Duration: 90 days Active Rinvoq 15 MG 1 tablet Orally Once a day Active Pravastatin Sodium 10 MG 1 tablet Orally Once a day; Duration: 30 days Active Immunizations Vaccine Route Administration [...] unspecified (E03.9) Active confirmed Problem Mixed hyperlipidemia (195068997) Mixed hyperlipidemia (E78.2) Active confirmed Problem Ankylosing spondylitis (1895301) Ankylosing spondylitis of cervicothoracic region (M45.3) Active confirmed Vital Signs Heart Rate 77 /min 01/23/2024 Temperature 96.9 degrees Fahrenheit 01/23/2024 Oximetry 96 % 01/23/2024 Blood pressure diastolic 74 mm Hg 01/23/2024 Height 5'6.5 in 01/23/2024 Blood pressure systolic 114 mm Hg 01/23/2024 Weight 155.3 lbs 01/23/2024 BMI 24.69 kg/m2 01/23/2024 Encounters Encounter Location Date Provider Diagnosis [address] [place] [address] 01/23/2024 BEY GUL Hypothyroidism, unspecified E03.9 ; Annual physical exam Z00.00 ; Mixed hyperlipidemia E78.2 ; Ankylosing spondylitis of cervicothoracic region M45.3 ; Pain in left shoulder M25.512 ; Impaired fasting glucose R73.01 and Acne, unspecified L70.[address] [place] [address] 01/24/2024 MAIDA GUERRERO Encounter for screen ing for osteoporosis Z13.[address] [place] [address] 08/19/2024 BEY JESSEL Mixed hyperlipidemia E78.[address] [place] [address] 09/03/[address] [place] [address] 01/25/[address] [place] [address] 02/09/[address] [place] [address] 02/14/2024 [facility] [address] [facility] [place] [address] 02/16/2024 [facility] [address] [place] [address] 02/19/2024 [facility] [address] [facility] [place] [address] 03/26/2024 [facility] [address] [facility] [place] [address] 03/29/2024 [facility] [address] [facility] [place] [address] 04/01/2024 [facility] [address] [place] [address] 04/01/2024 [facility] [address] [facility] [place] [address] 04/06/2024 [facility] [address] [facility] [place] [address] 04/09/2024 [facility] [address] [facility] [place] [address] 04/11/2024 [facility] [address] [facility] [place] [address] 04/12/2024 [facility] [address] [facility] [place] [address] 04/16/2024 [facility] [address] [facility] [place] [address] 04/17/2024 [facility] [address] [facility] [place] [address] 05/30/2024 [facility] Mixed hyperlipidemia E78.2 and Spontaneous ecchymoses R23.3 [facility] [address] [place] [address] 05/31/2024 [facility] [address] [place] [address] 06/01/2024 BEY [facility] Ankylosing spondylit is of cervicothoracic region M45.3 [facility] [address] [place] [address] 08/18/2024 [facility] [address] [place] [address] 08/26/2024 [facility] [address] [facility] [place] [address] 09/03/2024 [facility] [address] [facility] [place] [address] 09/08/2024 [facility] [address] [facility] [place] [address] 09/08/2024 [facility] [address] [facility] [place] [address] 09/08/2024 [facility] [address] [place] [address] 09/09/2024 [facility] [address] [facility] [place] [address] 09/10/2024 [facility] [address] [facility] [place] [address] 09/10/2024 [facility] [address] [facility] [place] [address] 09/12/2024 [facility] [address] [facility] [place] [address] 09/12/2024 [facility] [address] [facility] [place] [address] 09/20/2024 [facility] Mixed hyperlipidemia E78.2 and Abnormal results of liver function studies R94.5 Assessments Encounter Date Diagnosis (ICD Code) Assessment Notes Treatment Notes Treatment Clinical Notes Section Notes 06/01/2024 Ankylosing spondylitis of cervicothoracic region (ICD-10 - M45.3) 08/19/2024 Mixed hyperlipidemia (ICD-10 - E78.2) 09/20/2024 Mixed hyperlipidemia (ICD-10 - E78.2) 01/24/2024 Encounter for screening for osteoporosis (ICD-10 - Z13.820) 05/30/2024 Mixed hyperlipidemia (ICD-10 - E78.2) 01/23/2024 Hypothyroidism, unspecified (ICD-10 - E03.9) Mrs [...] follows up with Dr. Jana Schwab at [facility]. Left shoulder joint pain. Most likely shoulder impingement/adhes salina capsulitis. Will do x-ray of the left shoulder joint and referral to physical therapy. Acne. She needs a referral to see a different board operator. She wants to be on Accutane and they want her to do tests every time she goes. She is clearly in menopause and very low risk for . Osteoarthritis and she follows up with Charlotte Sheppard MD for PRP injections Eye screening. She sees her Dr Cooley regularly. Skin screening. She sees her board operator regularly. Breast cancer screening. She had her mammogram in 2022. She follows up with her hard tile setter apprentice Dr. Federica Barahona for breast and pelvic [...] follows up with Dr. Jana Schwab at [facility]. Left shoulder joint pain. Most likely shoulder impingement/adhes salina capsulitis. Will do x-ray of the left shoulder joint and referral to physical therapy. Acne. She needs a referral to see a different board operator. She wants to be on Accutane and they want her to do tests every time she goes. She is clearly in menopause and very low risk for . Osteoarthritis and she follows up with Charlotte Sheppard MD for PRP injections Eye screening. She sees her Dr Cooley regularly. Skin screening. She sees her board operator regularly. Breast cancer screening. She had her mammogram in 2022. She follows up with her hard tile setter apprentice Dr. Federica Barahona for breast and pelvic [...] day. She follows up with Dr. Hari Fostre MD Sleep issues. She follows up with Dr. Jana Schwab at [facility]. Left shoulder joint pain. Most likely shoulder impingement/adhes salina capsulitis. Will do x-ray of the left shoulder joint and referral to physical therapy. Acne. She needs a referral to see a different board operator. She wants to be on Accutane and they want her to do tests every time she goes. She is clearly in menopause and very low risk for . Osteoarthritis and she follows up with Charlotte Sheppard MD for PRP injections Eye screening. She sees her Dr Cooley regularly. Skin screening. She sees her board operator regularly. Breast cancer screening. She had her mammogram in 2022. She follows up with her hard tile setter apprentice Dr. Federica Barahona for breast and pelvic exams. Immunizations. She is up-to-date on her COVID, influenza, shingles and TDAP vaccinations. Screening blood work before next appointment. She is full code and her is her healthcare proxy. General health concerns discussed with patient. 05/30/2024 Spontaneous ecchymoses (ICD-10 - R23.3) 09/20/2024 Abnormal results of liver function studies (ICD-10 - R94.5) 01/23/2024 Ankylosing spondylitis of cervicothoracic region (ICD-10 [...] follows up with Dr. Jana Schwab at [facility]. Left shoulder joint pain. Most likely shoulder impingement/adhes salina capsulitis. Will do x-ray of the left shoulder joint and referral to physical therapy. Acne. She needs a referral to see a different board operator. She wants to be on Accutane and they want her to do tests every time she goes. She is clearly in menopause and very low risk for . Osteoarthritis and she follows up with Charlotte Sheppard MD for PRP injections Eye screening. She sees her Dr Cooley regularly. Skin screening. She sees her board operator regularly. Breast cancer screening. She had her mammogram in 2022. She follows up with her hard tile setter apprentice Dr. Federica Barahona for breast and pelvic [...] follows up with Dr. Jana Schwab at [facility]. Left shoulder joint pain. Most likely shoulder impingement/adhes sailna capsulitis. Will do x-ray of the left shoulder joint and referral to physical therapy. Acne. She needs a referral to see a different board operator. She wants to be on Accutane and they want her to do tests every time she goes. She is clearly in menopause and very low risk for . Osteoarthritis and she follows up with Charlotte Sheppard MD for PRP injections Eye screening. She sees her Dr Cooley regularly. Skin screening. She sees her board operator regularly. Breast cancer screening. She had her mammogram in 2022. She follows up with her hard tile setter apprentice Dr. Federica Barahona for breast and pelvic [...] follows up with Dr. Jana Schwab at [facility]. Left shoulder joint pain. Most likely shoulder impingement/adhes salina capsulitis. Will do x-ray of the left shoulder joint and referral to physical therapy. Acne. She needs a referral to see a different board operator. She wants to be on Accutane and they want her to do tests every time she goes. She is clearly in menopause and very low risk for . Osteoarthritis and she follows up with Charlotte Sheppard MD for PRP injections Eye screening. She sees her Dr Cooley regularly. Skin screening. She sees her board operator regularly. Breast cancer screening. She had her mammogram in 2022. She follows up with her hard tile setter apprentice Dr. Federica Barahona for breast and pelvic [...] follows up with Dr. Jana Schwab at [facility]. Left shoulder joint pain. Most likely shoulder impingement/adhes salnia capsulitis. Will do x-ray of the left shoulder joint and referral to physical therapy. Acne. She needs a referral to see a different board operator. She wants to be on Accutane and they want her to do tests every time she goes. She is clearly in menopause and very low risk for . Osteoarthritis and she follows up with Charlotte Sheppard MD for PRP injections Eye screening. She sees her Dr Cooley regularly. Skin screening. She sees her board operator regularly. Breast cancer screening. She had her mammogram in 2022. She follows up with her hard tile setter apprentice Dr. Federica Barahona for breast and pelvic exams. Immunizations. She is up-to-date on her COVID, influenza, shingles and TDAP vaccinations. Screening blood work before next appointment. She is full code and her is her healthcare proxy. General health concerns discussed with patient. Plan Of Treatment Pending Test Test Name Order Date Bone Density 01/24/2024 Bone Density 01/23/2024 Xray: Shoulder Left-Min 2 Vws 01/23/2024 Lipid Panel-[id number] 08/19/2024 Next Appt Details Provider Name:Xavier Agrawaljania, 1 03/26/2024 09:30:00 AM, [address] [place] [address], [phone], Insurance Providers Payer Name Payer Address Payer Phone Subscriber Number Group Number Insured Name Patient Relationship to Insured Coverage Start Date Coverage End Date [facility] [address] [place] [address] [id number] Johanna Hallman Self - patient is the insured Medical (General) History Medical History History ICD Code hyperlipidemia hypothyroidism ankylosing spondylitis see Dr. Hari hutchinson Difficulty falling asleep and she follow s up with Dr. Jana Schwab Osteoarthritis and she follows up with Bernarda Ceron MD Surgical History Surgery Date(Month/Year) cervical spine surgery
== END 2024-10-08 10:14 | disposition home or self-care (01) ==
LOC: HO.PMC 09:30
PROVIDERS: PCP Hospitalist; Visit Provider Internal Medicine
DX: M70.61 Trochanteric bursitis, right hip (principal); M70.62 Trochanteric bursitis, left hip; M75.31 Calcific tendinitis of right shoulder; M79.18 Myalgia, other site; M75.32 Calcific tendinitis of left shoulder
CPT/HCPCS: 20553; 99214

== ENCOUNTER → 2024-10-08 09:29 | Outpatient (BNVA) | payer BC, SELFPAY | PROVIDERS: PCP Hospitalist; Visit Provider Internal Medicine | DX: M79.18 Myalgia, other site (principal); M70.61 Trochanteric bursitis, right hip; M70.62 Trochanteric bursitis, left hip; M75.31 Calcific tendinitis of right shoulder; M75.32 Calcific tendinitis of left shoulder | CPT/HCPCS: 20553; J2795; J3301 ==

== ENCOUNTER 2024-12-25 06:13 | Outpatient (REF) | payer BC, SELFPAY ==
--- NOTE | ~2024-12-25 | FL_ITS ---
EXAMINATION: XR FLUOROSCOPY WITH IMAGES CLINICAL INFORMATION: Arthritis COMPARISON: MRI 07/16/2023 TECHNIQUE: Fluoroscopy time: 11 seconds DAP: 113 mGycm2 Images: 4 FINDINGS: Fluoroscopy provided for procedure. Images obtained during bilateral hip joint injection. FL/FL guidance in treatment room IMPRESSION: Fluoroscopy provided for the procedure. See procedure report for details. Electronically signed by: William Lubin MD 12/26/2024 01:28 PM EST
--- OUTSIDE RECORDS SUMMARY | 2024-12-25 06:16 | XMS_ITS ---
Author Name [facility] Organization Unknown Encounters Encounter Type Encounter Reason Primary Diagnosis Location Date [facility] 04/03/2022 [facility] 02/27/2022 [facility] 02[facility]24/2022 [facility] 12/16/2021 Care Team Organization Name Specialty Phone Email Start Date End Da te [facility] 12/19/2021 [facility] 12/16/2021 12/16/2021
--- OUTSIDE RECORDS SUMMARY | 2024-12-25 06:16 | XMS_ITS | Clinical Summary ---
Author Organization [facility] Address [address] [place] [address] Care Team Providers Care Electrolysist Name Role Phone Zohreh Borrero MD Primary Care Provider Unavailabl e Zohreh Borrero MD Unavailable Unavailable Active Problems Problem Noted Date Diagnosed Date Acne 02/16/2020 ADHD 02/16/2020 Depression 02/16/2020 Hypothyroidism 02/16/2020 Ankylosing polyarthritis 02/16/2020 Overview (03/11/2023): Impression - 16Feb2020: She sees the Rheum, Dr Foster. Impression - 16Feb2020: She sees the Employer Relations Representative, Dr Foster regularly. Immunizations Immunization Administration Dates Next Due Influenza,seasonal,trivalent,preservative (FLUZO NE MDV) 11/20/2019 Family History Medical History Relation Name Comments Other Other disease : Famil y History;mother 96 htn,[place] breast cancer Father 65 [place] Htn hypothyroid Mgm 63 ? Mgf Relation [...] Screening 10/18/2021 10/19/2011 COVID-19 Vaccine (1 - 2024-2 6 season) 2024 Influenza (#1) 2024 11/20/2019 RSV [...] to follow to Patient. Testing Performed at: [facility], [address] [place] [address], , Ribbon Sweatband Operator: Ly Brennan MD CL#[id number] 12:52PM by Zohreh Borrero: Labs look good, [...] to Patient. FASTING: YES Testing Performed at: [facility], [address] [place] [id number], , Ribbon Sweatband Operator: Ly Brennan MD #[id number] 12:52PM by Zohreh Borrero: Labs look good, [...] Recently Relevant to Health Maintenance Care Teams Electrolysist Relationship Specialty Start Date End Date Zohreh Borrero MD PCP - General 09/11/22 Zohreh Borrero MD PCP - Backup PCP Family Medicine 03/08/23
--- OUTSIDE RECORDS SUMMARY | 2024-12-25 06:16 | XMS_ITS | Clinical Summary ---
Author Organization [facility] Address [address] [place] [address] Care Team Providers Care News Internship Name Role Phone Unavailable Primary Care Provider [...]
--- OUTSIDE RECORDS SUMMARY | 2024-12-25 06:16 | XMS_ITS | Patient Health Record ---
Author Organization [email or web address] Address [address] [place] [address] Care Team Providers Care Program Consultant Name Role Phone YOLANDA BEY Primary Care Provider TanjaAnny dykescalvin Unavailable [phone] Allergies No Known Allergies Results Component Value Reference Range Notes TSH+Free [id number] Reviewed date:04/17/2024 07:46:11 AM Interpretation: Performing Lab:[facility], [address] [place] [address], Phone - [phone], Director - MDJodry Notes/Report: TSH 1.950 0.450-4.500 uIU/mL T4,Free(Direct) 1.39 0.82-1.77 ng/dL Hemoglobin [id number] Reviewed date:04/17/2024 07:46:16 AM Interpretation: Performing Lab:[facility], [address] [place] [address], Phone - [phone], Director - Chelseadrallyson Notes/Report: Hemoglobin A1c 5.4 4.8-5.6 % Diabetes: >6.4 Glycemic control for adults with diabetes: <7.0 . Prediabetes: 5.7 - 6.4 [id number] Reviewed date:01/17/2024 07:41:40 AM Interpretation: Performing Lab[facility] [place], Phone - [phone], Director - Chelseadry Notes/Report: TSH 0.535 0.450-4.500 uIU/mL CBC, Platelet, No Differenti al-[id number] Reviewed date:01/17/2024 07:44:16 AM Interpretation: Performing Lab:[facility] [address] [place] [address], Phone - [phone], Director - MDJodry Notes/Report: WBC 3.2 3.4-10.8 x10E3/uL RBC 4.19 3.77-5.28 x10E6/uL Hemoglobin 13.3 11.1-15.9 g/dL Hematocrit 41.3 34.0-46.6 % MCV 99 79-97 fL MCH 31.7 26.6-33.0 pg MCHC 32.2 31.5-35.7 g/dL RDW 13.0 11.7-15.4 % Platelets 254 150-450 x10E3/uL Lipid Panel-[id number] Reviewed date:01/17/2024 07:44:14 AM Interpretation: Performing Lab:[facility], [address] [facility], [place], Phone - [phone], Director - Deborah Notes/Report: Cholesterol, Total 195 100-199 mg/dL Triglycerides 48 0-149 mg/dL HDL Cholesterol 94 >39 mg/dL VLDL Cholesterol Fred 9 5-40 mg/dL LDL Chol Calc (NIH) 92 0-99 mg/dL Comp. Metabolic Panel (14)-3 Reviewed date:01/17/2024 07:44:09 AM Interpretation: Performing Lab:[facility], [address] [facility], [place], Phone - [phone], Director - Fredy Notes/Report: Glucose 100 70-99 mg/dL BUN 15 [...] Referral Reason Acne-Hill side derm Referral Organization [facility] Referring Provider First Name MAIDA Referring Provider Last Name [facility] Referring Provider Speciality Internal M edicine Referred Provider Specialty Dermatology Referral Priority Routine Reason left shoulder pain- [facility] [place] Diagnosis 1 Annual physical exam (Z00.00) Referral Organization [facility] Referring Provider First Name MAIDA Referring Provider Last Name [facility] Referring Provider Speciality Internal M edicine [...] Status W/U Status Risk Notes Problem Hypothyroidism (68673839) Hypothyroidism, unspecified (E03.9) Active confirmed Problem Mixed hyperlipidemia (701557198) Mixed hyperlipidemia (E78.2) Active confirmed Problem Ankylosing spondylitis (6910161) Ankylosing spondylitis of cervicothoracic region (M45.3) Active confirmed Vital Signs Heart Rate 77 /min 01/23/2024 Temperature 96.9 degrees Fahrenheit 01/23/2024 Blood pressure diastolic 74 mm Hg 01/23/2024 Oximetry 96 % 01/23/2024 Height 5'6.5 in 01/23/2024 Blood pressure systolic 114 mm Hg 01/23/2024 Weight 155.3 lbs 01/23/2024 BMI 24.69 kg/m2 01/23/2024 Encounters Encounter Location Date Provider Diagnosis [address] [place] [address] 01/23/2024 BEY GUL Hypothyroidism, unspecified E03.9 ; Annual physical exam Z00.00 ; Mixed hyperlipidemia E78.2 ; Ankylosing spondylitis of cervicothoracic region M45.3 ; Pain in left shoulder M25.512 ; Impaired fasting glucose R73.01 and Acne, unspecified L70.[address] [place] [address] 01/24/2024 MAIDA GUERRERO Encounter for screen ing for osteoporosis Z13.[address] [place] [address] 08/19/2024 BEYBEBA GUERRERO Mixed hyperlipidemia E78.[address] [place] [address] 09/03/2024 MAIDA GUERRERO [address] [place] [address] 12/11/2024 Xavier Cardona [address] [place] [address] 01/25/2024 BEY GUL [facility] [address] [place] [address] 02/09/2024 BEY GUL [facility] [address] [facility] [place] [address] 02/14/2024 BEY GUL [facility] [address] [place] [address] 02/16/2024 [facility] GUL [facility] [address] [facility] [place] [address] 02/19/2024 [facility] GUL [facility] [address] [facility] [place] [address] 03/26/2024 [facility] GUL [facility] [address] [facility] [place] [address] 03/29/2024 [facility] [address] [facility] [place] [address] 04/01/2024 [facility] GUL [facility] [address] [facility] [place] [address] 04/01/2024 [facility] GUL [facility] [address] [facility] [place] [address] 04/06/2024 [facility] [address] [facility] [place] [address] 04/09/2024 [facility] GUL [facility] [address] [facility] [place] [address] 04/11/2024 [facility] GUL [facility] [address] [facility] [place] [address] 04/12/2024 [facility] GUL [facility] [address] [facility] [place] [address] 04/16/2024 [facility] GUL [facility] [address] [facility] [place] [address] 04/17/2024 [facility] GUL [facility] [address] [place] [address] 05/30/2024 BEY GUL Mixed hyperlipidemia E78.2 and Spontaneous ecchymoses R23.3 [facility] [address] [place] [address] 05/31/2024 [facility] [address] [place] [address] 06/01/2024 BEY [facility] Ankylosing spondylit is of cervicothoracic region M45.3 [facility] [address] [place] [place] [address] 08/18/2024 [facility] [address] [place] [place] [address] 08/26/2024 [facility] [address] [place] [address] 09/03/2024 [facility] [address] [place] [place] [address] 09/08/2024 [facility] [address] [place] [address] 09/08/2024 [facility] [address] [place] [place] [address] 09/08/2024 [facility] [address] [place] [address] 09/09/2024 [facility] [address] [place] [address] 09/10/2024 [facility] [address] [place] [place] [address] 09/10/2024 [facility] [address] [place] [address] 09/12/2024 [facility] [address] [place] [address] 09/12/2024 [facility] [address] [place] [address] 09/20/2024 BEY [facility] Mixed hyperlipidemia E78.2 and Abnormal results of liver function studies R94.5 Assessments Encounter Date Diagnosis (ICD Code) Assessment Notes Treatment Notes Treatment Clinical Notes Section Notes 01/24/2024 Encounter for screening for osteoporosis (ICD-10 - Z13.820) 06/01/2024 Ankylosing spondylitis of cervicothoracic region (ICD-10 - M45.3) 05/30/2024 Mixed hyperlipidemia (ICD-10 - E78.2) 08/19/2024 Mixed hyperlipidemia (ICD-10 - E78.2) 01/23/2024 Hypothyroidism, [...] follows up with Dr. Jana Schwab at [facility]. Left shoulder joint pain. Most likely shoulder impingement/adhes salina capsulitis. Will do x-ray of the left shoulder joint and referral to physical therapy. Acne. She needs a referral to see a different spa manager. She wants to be on Accutane and they want her to do tests every time she goes. She is clearly in menopause and very low risk for . Osteoarthritis and she follows up with Charlotte Sheppard MD for PRP injections Eye screening. She sees her Dr Cooley regularly. Skin screening. She sees her spa manager regularly. Breast cancer screening. She had her mammogram in 2022. She follows up with her field engineer Dr. Federica Barahona for breast and pelvic exams. Immunizations. She is up-to-date on her COVID, influenza, shingles and TDAP vaccinations. Screening blood work before next appointment. She is full code and her is her healthcare proxy. General health concerns discussed with patient. 09/20/2024 Mixed hyperlipidemia (ICD-10 - E78.2) 01/23/2024 Annual physical exam (ICD-10 - Z00.00) [...] follows up with Dr. Jana Schwab at [facility]. Left shoulder joint pain. Most likely shoulder impingement/adhes salina capsulitis. Will do x-ray of the left shoulder joint and referral to physical therapy. Acne. She needs a referral to see a different spa manager. She wants to be on Accutane and they want her to do tests every time she goes. She is clearly in menopause and very low risk for . Osteoarthritis and she follows up with Charlotte Sheppard MD for PRP injections Eye screening. She sees her Dr Cooley regularly. Skin screening. She sees her spa manager regularly. Breast cancer screening. She had her mammogram in 2022. She follows up with her field engineer Dr. Federica Barahona for breast and pelvic exams. Immunizations. She is up-to-date on her COVID, influenza, shingles and TDAP vaccinations. Screening blood work before next appointment. She is full code and her is her healthcare proxy. General health concerns discussed with patient. 09/20/2024 Abnormal results of liver function studies (ICD-10 - R94.5) 01/23/2024 Mixed hyperlipidemia (ICD-10 - E78.2) Mrs [...] follows up with Dr. Jana Schwab at [facility]. Left shoulder joint pain. Most likely shoulder impingement/adhes salina capsulitis. Will do x-ray of the left shoulder joint and referral to physical therapy. Acne. She needs a referral to see a different spa manager. She wants to be on Accutane and they want her to do tests every time she goes. She is clearly in menopause and very low risk for . Osteoarthritis and she follows up with Charlotte Sheppard MD for PRP injections Eye screening. She sees her Dr Cooley regularly. Skin screening. She sees her spa manager regularly. Breast cancer screening. She had her mammogram in 2022. She follows up with her field engineer Dr. Federica Barahona for breast and pelvic exams. Immunizations. She is up-to-date on her COVID, influenza, shingles and TDAP vaccinations. Screening blood work before next appointment. She is full code and her is her healthcare proxy. General health concerns discussed with patient. 05/30/2024 Spontaneous ecchymoses (ICD-10 - R23.3) 01/23/2024 Ankylosing spondylitis of cervicothoracic region (ICD-10 [...] follows up with Dr. Jana Schwab at [facility]. Left shoulder joint pain. Most likely shoulder impingement/adhes salina capsulitis. Will do x-ray of the left shoulder joint and referral to physical therapy. Acne. She needs a referral to see a different spa manager. She wants to be on Accutane and they want her to do tests every time she goes. She is clearly in menopause and very low risk for . Osteoarthritis and she follows up with Charlotte Sheppard MD for PRP injections Eye screening. She sees her Dr Cooley regularly. Skin screening. She sees her spa manager regularly. Breast cancer screening. She had her mammogram in 2022. She follows up with her field engineer Dr. Federica Barahona for breast and pelvic [...] follows up with Dr. Jana Schwab at [facility]. Left shoulder joint pain. Most likely shoulder impingement/adhes salina capsulitis. Will do x-ray of the left shoulder joint and referral to physical therapy. Acne. She needs a referral to see a different spa manager. She wants to be on Accutane and they want her to do tests every time she goes. She is clearly in menopause and very low risk for . Osteoarthritis and she follows up with Charlotte Sheppard MD for PRP injections Eye screening. She sees her Dr Cooley regularly. Skin screening. She sees her spa manager regularly. Breast cancer screening. She had her mammogram in 2022. She follows up with her field engineer Dr. Federica Barahona for breast and pelvic exams. Immunizations. She is up-to-date on her COVID, influenza, shingles and TDAP vaccinations. Screening blood work before next appointment. She is full code and her is her healthcare proxy. General health concerns discussed with patient. 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 Jana Schwab at [facility]. Left shoulder joint pain. Most likely shoulder impingement/adhes salina capsulitis. Will do x-ray of the left shoulder joint and referral to physical therapy. Acne. She needs a referral to see a different spa manager. She wants to be on Accutane and they want her to do tests every time she goes. She is clearly in menopause and very low risk for . Osteoarthritis and she follows up with Charlotte Sheppard MD for PRP injections Eye screening. She sees her Dr Cooley regularly. Skin screening. She sees her spa manager regularly. Breast cancer screening. She had her mammogram in 2022. She follows up with her field engineer Dr. Federica Barahona for breast and pelvic [...] follows up with Dr. Jana Schwab at [facility]. Left shoulder joint pain. Most likely shoulder impingement/adhes salina capsulitis. Will do x-ray of the left shoulder joint and referral to physical therapy. Acne. She needs a referral to see a different spa manager. She wants to be on Accutane and they want her to do tests every time she goes. She is clearly in menopause and very low risk for . Osteoarthritis and she follows up with Charlotte Sheppard MD for PRP injections Eye screening. She sees her Dr oColey regularly. Skin screening. She sees her spa manager regularly. Breast cancer screening. She had her mammogram in 2022. She follows up with her field engineer Dr. Federica Barahona for breast and pelvic [...] Xray: Shoulder Left-Min 2 Vws 01/23/2024 Lipid Panel-[id number] 08/19/2024 Next Appt Details Provider Name:MAIDA GUERRERO , 02/24/2025 11:00:00 AM, [address] [place] [address], [place], [address], Insurance Providers Payer Name Payer Address Payer Phone Subscriber Number Group Number Insured Name Patient Relationship to Insured Coverage Start Date Coverage End Date [facility] [address] [place] [address] [id number] Johanna Hallman Self - patient is the insured Medical (General) History Medical History History ICD Code hyperlipidemia hypothyroidism ankylosing spondylitis see Dr. Hari hutchinson Difficulty falling asleep and she follow s up with Dr. Jana Schwab Osteoarthritis and she follows up with Bernarda Ceron MD Surgical History Surgery Date(Month/Year) cervical spine surgery
== END 2024-12-25 06:14 | disposition home or self-care (01) ==
LOC: CF 06:13
PROVIDERS: Visit Provider Internal Medicine
DX: Z13.89 Encounter for screening for other disorder (principal)

== ENCOUNTER 2024-12-25 08:55 | Outpatient (AMB) | payer BC, SELFPAY ==
[2024-12-25 09:05] VITALS: BP 110/82; PULSE 80; RESP 16; O2SAT 98
--- NOTE | 2024-12-25 09:05 | A.OFFVIS_ITS ---
Vital Signs 12/25/24 09:05 12/25/24 10:20 BP 110/82 130/88 Blood Pressure Location Lt brachial Lt brachial Position Sitting Sitting Respiration 16 16 Pulse 80 80 Pulse Source Pulse Oximeter Pulse Oximeter Pulse Oximetry (%) 98 98 Oxygen Delivery Method Room Air Room Air Intake Visit Reasons: PRP elzbieta hips Scoop Filler Required: No Allergies No Known Allergies Allergy (Verified 12/25/24 09:06) Medication List - Last Reconciled 12/25/24 by Jacqueline Duffy LPN levothyroxine 75 mcg PO DAILY lidocaine 5% 1 patch topical DAILY meloxicam 15 mg PO DAILY upadacitinib ER (Rinvoq) 15 mg PO DAILY zolpidem mg PO PFSH Medical History (Updated 12/17/24 @ 15:37 by Geovanna Reid APRN, PACKAGING ASSOCIATE) Sacroiliitis Lumbar spondylosis Trochanteric bursitis of both hips Ankylosing spondylitis Hypothyroidism Fusion of toes of right foot Surgical History (Updated 01/24/24 @ 16:23 by Felix Delgado MD) H/O repair of left rotator cuff Hx of fusion of cervical spine Hx of tonsillectomy Social History (Updated 01/07/21 @ 11:55 by Luke Chaves) Patient Tobacco Use Status: Never used Tobacco Physical Exam Vital Signs: Last Vital Signs Pulse 80 12/25/24 10:20 Resp 16 12/25/24 10:20 BP 130/88 12/25/24 10:20 Pulse Ox 98 12/25/24 10:20 Oxygen Delivery Method Room Air 12/25/24 10:20 Office Procedures Platelet Rich Plasma Injection PRP Joint Injection After informed written consent was obtained, pre-procedure oxygen saturation, heart rate, and blood pressure were recorded. An 18 gauge butterfly needle was used to obtain 50 mL of whole blood from the right antecubital fossa. This was then mixed with 9 mL anticoagulant citrate dextrose solution. The 60 mL mixture was counter balanced to within 1 g and spun at 3500 rpm for 10 minutes. Platelet poor plasma was then drawn using a bench top press model. 6 mL of slightly leukocyte rich PRP was isolated in a 10 cc syringe. 3 mL of PRP was injected on each side after obtaining an arthrogram. Primary Site: Other ( Bilateral hip joints) Prep: site was prepped using sterile technique Approach Used: other ( fluoroscopic guided lateral approach with arthrogram on each side) Procedure: The patient tolerated the procedure well XCELL Platelet Plasma - 0232T 60 mL All charges added?: Procedure code (CPT) selection complete Assessment & Plan Assessment & Plan (1) Bilateral hip joint arthritis: Code(s): M16.0 - Bilateral primary osteoarthritis of hip Category: Medical Plan Patient is status post bilateral hip joint PRP injections. Patient tolerated procedure well and was discharged home in stable condition with discharge instructions. All questions were answered. We will follow-up via telephone or in clinic to assess response to therapy. A follow-up appointment was made during today's visit. Orders: Orders FL guidance in treatment room Today Geovanna Ried APRN, PACKAGING ASSOCIATE M16.0 - Bilateral primary osteoarthritis of hip AMB Platelet Rich Plasma (PRP) Injection Today Kervin Narvaez MD M16.0 - Bilateral primary osteoarthritis of hip Medications: New suzetrigine 50 mg PO DAILY 30 tabs 3RF Kervin Narvaez MD Coding Level of Care Code Procedure Only Diagnoses Bilateral hip joint arthritis M16.0 CPT Codes XCELL Kit 60mL ([id number])
[2024-12-25 10:20] VITALS: BP 130/88; PULSE 80; RESP 16; O2SAT 98
== END 2024-12-25 10:21 | disposition home or self-care (01) ==
LOC: HO.PMCPRC 08:55
PROVIDERS: PCP Hospitalist; Visit Provider Internal Medicine
DX: M16.0 Bilateral primary osteoarthritis of hip (principal)
CPT/HCPCS: 0232T

== ENCOUNTER 2025-01-08 09:04 | Outpatient (AMB) | payer SELFPAY ==
[2025-01-08 09:09] VITALS: BP 120/72; PULSE 60; RESP 16; O2SAT 98
--- NOTE | 2025-01-08 09:09 | A.OFFVIS_ITS ---
Vital Signs 01/08/25 09:09 01/08/25 09:56 BP 120/72 77/44 L Blood Pressure Location Lt brachial Lt brachial Position Sitting Sitting Respiration 16 16 Pulse 60 80 Pulse Source Pulse Oximeter Pulse Oximetry (%) 98 98 Oxygen Delivery Method Room Air Room Air Intake Visit Reasons: Ulises shoulder PRP Hospice Care Consultant Required: No Allergies No Known Allergies Allergy (Verified 01/08/25 09:09) Medication List - Last Reconciled 01/08/25 by Jacqueline Duffy LPN levothyroxine 75 mcg PO DAILY lidocaine 5% 1 patch topical DAILY meloxicam 15 mg PO DAILY suzetrigine 50 mg PO DAILY upadacitinib ER (Rinvoq) 15 mg PO DAILY zolpidem mg PO HPI HPI Ulises shoulder PRP: Details: Patient presents for scheduled procedure. Denies any recent cough, cold, infection, fever or other significant changes in medical history since last office visit. [facility] Medical History (Updated 12/17/24 @ 15:37 by Geovanna Reid APRN, MEDICAL SECRETARY) Sacroiliitis Lumbar spondylosis Trochanteric bursitis of both hips Ankylosing spondylitis Hypothyroidism Fusion of toes of right foot Surgical History (Updated 01/24/24 @ 16:23 by Felix Delgado MD) H/O repair of left rotator cuff Hx of fusion of cervical spine Hx of tonsillectomy Social History (Updated 01/07/21 @ 11:55 by Lkue Chaves) Patient Tobacco Use Status: Never used Tobacco Physical Exam Vital Signs: Last Vital Signs Pulse 80 01/08/25 09:56 Resp 16 01/08/25 09:56 BP 77/44 L 01/08/25 09:56 Pulse Ox 98 01/08/25 09:56 Oxygen Delivery Method Room Air 01/08/25 09:56 Office Procedures Platelet Rich Plasma Injection PRP Joint Injection After informed written consent was obtained, pre-procedure oxygen saturation, heart rate, and blood pressure were recorded. An 18 gauge butterfly needle was used to obtain 50 mL of whole blood from the right antecubital fossa. This was then mixed with 9 mL anticoagulant citrate dextrose solution. The 60 mL mixture was counter balanced to within 1 g and spun at 3500 rpm for 10 minutes. Platelet poor plasma was then drawn using a bench top press model. 6 mL of slightly leukocyte rich PRP was isolated in a 10 cc syringe. 3 mL PRP was injected on each side, targeting the rotator cuff tendons. XCELL Platelet Plasma - 0232T 60 mL All charges added?: Procedure code (CPT) selection complete Assessment & Plan Assessment & Plan (1) Lumbar spondylosis: Code(s): M47.816 - Spondylosis without myelopathy or radiculopathy, lumbar region Category: Medical (2) Calcific tendinitis of both shoulders: Code(s): M75.31 - Calcific tendinitis of right shoulder; M75.32 - Calcific tendinitis of left shoulder Category: Medical Plan Patient is status post bilateral shoulder PRP injections. Patient tolerated procedure well and was discharged home in stable condition with discharge instructions. All questions were answered. We will follow-up via telephone or in clinic to assess response to therapy. A follow-up appointment was made during today's visit. Orders: Orders AMB Platelet Rich Plasma (PRP) Injection 01/08/25 M75.31 - Calcific tendinitis of right shoulder, M75.32 - Calcific tendinitis of left shoulder Medications: New tramadol ER (Ultram ER) 100 mg PO DAILY PRN 60 tabs 0RF pain (scale score 4-6) Coding Level of Care Code Procedure Only Diagnoses Lumbar spondylosis M47.816 Calcific tendinitis of both shoulders M75.31; M75.32 CPT Codes XCELL Kit 60mL ([id number])
[2025-01-08 09:56] VITALS: BP 77/44; PULSE 80; RESP 16; O2SAT 98
== END 2025-01-08 10:02 | disposition home or self-care (01) ==
LOC: HO.PMCPRC 09:04
PROVIDERS: PCP Hospitalist; Visit Provider Internal Medicine
DX: M47.816 Spondylosis without myelopathy or radiculopathy, lumbar region (principal); M75.31 Calcific tendinitis of right shoulder; M75.32 Calcific tendinitis of left shoulder
CPT/HCPCS: 0232T